=== PATIENT | male | born 1950 | race Caucasian/White ===

== ENCOUNTER 2016-09-19 12:47 | Observation (INO) | payer OTHER ==
[2016-09-19 13:43] LABS: ABSOLUTE LYMPHOCYTES (AUTO) 0.7 10^3/uL (0.5-4.7); ABSOLUTE MONOCYTES (AUTO) 0.5 10^3/uL (0.1-1.4); ABSOLUTE NEUT (AUTO) 8.3 10^3/uL (1.7-8.2); BASOPHILS % (AUTO) 0.2 % (0-2); EOSINOPHILS % (AUTO) 0.2 % (0-6); HEMOGLOBIN 19.4 g/dL (13.5-17.0); HGB HCT DIFFERENCE 0.2; LYMPHOCYTES % (AUTO) 7.4 % (13-45); MEAN CORPUSCULAR HEMOGLOBIN 30.7 pg (27.0-33.4); MEAN CORPUSCULAR HGB CONC 33.5 g/dL (32.0-36.0); MEAN CORPUSCULAR VOLUME 92 fl (80-97); MONOCYTES % (AUTO) 5.2 % (3-13); RED BLOOD COUNT 6.32 10^6/uL (4.35-5.55); RED CELL DISTRIBUTION WIDTH 16.2 % (11.5-14.0); WHITE BLOOD COUNT 9.5 10^3/uL (4.0-10.5)
[2016-09-19 13:50] LABS: ALANINE AMINOTRANSFERASE 59 U/L (21-72); ALBUMIN 4.6 g/dL (3.5-5.0); ALKALINE PHOSPHATASE 94 U/L (38-126); ANION GAP 13 (5-19); ASPARTATE AMINO TRANSFERASE 34 U/L (17-59); BILIRUBIN,DIRECT 0.4 mg/dL (0.0-0.4); BILIRUBIN,TOTAL 0.8 mg/dL (0.2-1.3); BLOOD UREA NITROGEN 13 mg/dL (7-20); CALCIUM 9.2 mg/dL (8.4-10.2); CARBON DIOXIDE 28 mmol/L (22-30); CHLORIDE 100 mmol/L (98-107); CREATINE KINASE 89 U/L (55-170); CREATININE RESULT 1.04 mg/dL (0.52-1.25); GLUCOSE 144 mg/dL (75-110); POTASSIUM 5.6 mmol/L (3.6-5.0); SODIUM 141.2 mmol/L (137-145); TOTAL PROTEIN 7.5 g/dL (6.3-8.2)
[2016-09-19 14:03] LABS: TROPONIN I < 0.012 ng/mL
[2016-09-19] MEDS ORDERED: METOCLOPRAMIDE HCL INJ/PF 10 MG/2 ML SDV IV ONE ×2 (14:20→18:55)
[2016-09-19] MEDS ORDERED: DIPHENHYDRAMINE HCL 50 MG/ML VIAL IV ONE ×2 (14:20→18:55)
[2016-09-19] MEDS ORDERED: NORMAL SALINE 500 ML IV PRN (14:25)
[2016-09-19 14:42] LABS: APPEARANCE,URINE CLEAR; BILIRUBIN,URINE NEGATIVE (NEGATIVE); GLUCOSE, URINE >=500 mg/dL (NEGATIVE); KETONES,URINE NEGATIVE (NEGATIVE); LEUKOCYTE ESTERASE,URINE NEGATIVE (NEGATIVE); NITRITE,URINE NEGATIVE (NEGATIVE); PROTEIN,URINE 30 mg/dL (NEGATIVE); UROBILINOGEN,URINE NEGATIVE mg/dL (<2.0)
--- NOTE | 2016-09-19 15:49 | RADIOLOGY REPORT (SQ) ---
EXAM DESCRIPTION: CT HEAD WITHOUT COMPLETED DATE/TIME: 09/19/2016 3:13 pm REASON FOR STUDY: acute vertigo COMPARISON: None. TECHNIQUE: Axial images acquired through the brain without intravenous contrast. Images reviewed wi th bone, brain and subdural windows. Images stored on PACS. All CT scanners at this facility use dose modulation, iterative reconstruction, and/or weight based d osing when appropriate to reduce radiation dose to as low as reasonably achievable (ALARA). [facility]: Dose Right [facility]: CareDose [facility]: Dose Right [facility]: Teradose 4D [facility]: Smart [employer] RADIATION DOSE: Up-to-date CT equipment and radiation dose reduction techniques were employed. CTDIv ol: 64.6 mGy. DLP: 1034 mGy-cm. mGy. LIMITATIONS: None. FINDINGS: VENTRICLES: Normal size and contour. CEREBRUM: No masses. No hemorrhage. No midline shift. Normal reynaga/white matter differentiation. N o evidence for acute infarction. CEREBELLUM: No masses. No hemorrhage. No alteration of density. No evidence for acute infarction. EXTRAAXIAL SPACES: No fluid collections. No masses. ORBITS AND GLOBE: No intra- or extraconal masses. Normal contour of globe without masses. CALVARIUM: No fracture. PARANASAL SINUSES: No fluid or mucosal thickening. SOFT TISSUES: No mass or hematoma. OTHER: No other significant finding. IMPRESSION: NORMAL BRAIN CT WITHOUT CONTRAST. TECHNICAL DOCUMENTATION: JOB ID: [id number] Quality ID # [id number]: Final reports with documentation of one or more dose reduction techniques (e.g., Au tomated exposure control, adjustment of the mA and/or kV according to patient size, use of iterative reconstruction technique) 2010 [employer]- All Rights Reserved
[2016-09-19] MEDS ORDERED: NORMAL SALINE 1000 ML 1,000 ML IV PRN (16:27)
--- NOTE | 2016-09-19 16:29 | ER Document Report ---
ED General - General Mode of Arrival: Medic Information source: Patient - HPI Onset: Just prior to arrival Onset/Duration: Sudden Quality of pain: No pain Severity: None Pain Level: Denies Associated symptoms: Nausea, Vomiting, Other - Acute dizziness. denies: Chest pain, Fever, Shortness of breath Exacerbated by: Denies Relieved by: Denies Similar symptoms previously: No Recently seen / treated by doctor: No <BRANDON ALVAREZ - Last Filed: 09/19/16 20:25> <ROD JULIO - Last Filed: 09/19/16 21:37> - General Chief Complaint: Dizziness Stated Complaint: NASUEA Time Seen by Provider: 09/19/16 13:39 Notes: 65-year-old man with a history of sick sinus syndrome (pacemaker since age 41), coronary artery disease (mild), diabetes, acute onset of vertigo at home. This is new in onset. Who presents to the emergency room patient was diaphoretic, nausea vomiting. Blood pressure in the field was 205/134. Medications: Bystoli 10 mg p.m. Lexapro 20 mg daily Jardinance 10 mg daily Lisinopril 20 mg Daily Aspirin 81 mg daily Zaleplon 10 mg at night Testosterone Q 10 days (BRANDON ALVAREZ) - Related Data Home Medications: Current Home Medications Aspirin [Ecotrin 81 mg EC Tablet] 81 mg PO DAILY 09/19/16 [History] Empagliflozin [Jardiance] 10 mg PO QHS 09/19/16 [History] Escitalopram Oxalate [Lexapro] 20 mg PO DAILY 09/19/16 [History] Lisinopril [Prinivil] 20 mg PO DAILY 09/19/16 [History] Nebivolol HCl [Bystolic 10 mg Tablet] 10 mg PO QHS 09/19/16 [History] Simvastatin [Zocor 20 mg Tablet] 20 mg PO QHS 09/19/16 [History] Zaleplon [Sonata] 10 mg PO QHS 09/19/16 [History] Past Medical History - General Information source: Patient - Social History Smoking Status: Former Smoker Cigarette use (# per day): No - Patient does vap Chew tobacco use (# tins/day): No Frequency of alcohol use: None Drug Abuse: None Lives with: Alone Family History: None Patient has suicidal ideation: No Patient has homicidal ideation: No - Past Medical History Cardiac Medical History: Reports: Hx Hypercholesterolemia, Hx Hypertension, Other - Sick sinus syndrome with pacemaker Pulmonary Medical History: Reports: None EENT Medical History: Reports: None Neurological Medical History: Reports: None Endocrine Medical History: Reports: Hx Diabetes Mellitus Type 2 Renal/ Medical History: Reports: None Malignancy Medical History: Reports None GI Medical History: Reports: None Musculoskeltal Medical History: Reports None Skin Medical History: Reports None Psychiatric Medical History: Reports: None Past Surgical History: Reports: Hx Pacemaker <BRANDON ALVAREZ - Last Filed: 09/19/16 20:25> Review of Systems - Review of Systems Constitutional: denies: Chills, Fever EENT: No symptoms reported Cardiovascular: No symptoms reported Respiratory: No symptoms reported Gastrointestinal: No symptoms reported Genitourinary: No symptoms reported Male Genitourinary: No symptoms reported Musculoskeletal: No symptoms reported Skin: No symptoms reported Hematologic/Lymphatic: No symptoms reported Neurological/Psychological: See HPI, Other - Vertigo <BRANDON ALVAREZ - Last Filed: 09/19/16 20:25> Physical Exam <BRANDON ALVAREZ - Last Filed: 09/19/16 20:25> <ROD JULIO Boo - Last Filed: 09/19/16 21:37> - Vital signs Vitals: Resp Pulse Ox 16 92 09/19/16 13:17 09/19/16 13:17 Notes: Physical exam: GENERAL: 65-year-old man, alert and oriented 3, no acute distress HEAD: Atraumatic, normocephalic. EYES: Pupils equal round and reactive to light, extraocular movements intact, sclera anicteric, conjunctiva are normal. ENT: TMs normal, nares patent, oropharynx clear without exudates. Moist mucous membranes. NECK: Normal range of motion, supple without lymphadenopathy or JVD. LUNGS: Breath sounds clear to auscultation bilaterally and equal. No wheezes rales or rhonchi. HEART: Regular rate and rhythm without murmurs, rubs or gallops. ABDOMEN: Soft, normoactive bowel sounds. No tenderness to palpation. No guarding, no rebound. No masses appreciated. EXTREMITIES: Normal range of motion, no pitting or edema. No clubbing or cyanosis. NEUROLOGICAL: The patient does have a current acute vertigo, Cranial nerves II through XII grossly intact. Normal speech, motor is 5/5, sensory grossly intact , reflexes symmetric. Patient's NIH score is essentially 0. PSYCH: Normal mood, normal affect. SKIN: Warm, Dry, normal turgor, no rashes or lesions noted. (BRANDON ALVAREZ) Course - Laboratory Result Diagrams: 09/19/16 13:10 09/19/16 13:10 - Diagnostic Test Radiology reviewed: Image reviewed, Reports reviewed - PA of the head and neck shows a left cerebral infarct in the left vertebral artery dissection. - EKG Interpretation by Me Rate: Normal - EKG shows a atrial paced rhythm with a ventricular rate of 70, left axis deviation, poor R-wave progression, no acute ST-T wave changes <BRANDON ALVAREZ - Last Filed: 09/19/16 20:25> - Laboratory Result Diagrams: 09/19/16 13:10 09/19/16 13:10 <ROD JULIO - Last Filed: 09/19/16 21:37> - Re-evaluation Re-evalutation: 09/19/16 16:33 Note: This is a fellow with sick sinus syndrome and a pacemaker who has underlying hypertension who presents to the emergency room with acute vertigo. He was markedly hypertensive in the field and his labs are suggestive of polycythemia. The concern is that he may have had a small CVA. He was treated with IV fluids, Reglan and Benadryl. CT of the head shows no evidence of stroke. We are unable to do an MRI because of his pacemaker. Plan will be to admit the patient for further monitoring and workup. Patient does not meet criteria for thrombolytics at this time. Given his risk factors for stroke, he will bruit brought into the hospital. R009/19/16 17:58 Note: Patient's blood pressure currently is 161/91. He still feels much better. I discussed the CTA reports with Dr. Partida of radiology: The patient does have evidence of a left cerebellar infarct on CTA of the head and he also has significant narrowing of the left vertebral artery with possible proximal vertebral artery dissection on CTA of the neck. 09/19/16 20:25 Note: I discussed case with the [facility] (Dr Araiza) and Dr Manzo(medicine service) the problem and they are willing to accept the patient in transfer. Is that there are currently no beds available and the expected time of the bed availability is long. I have called [facility] in [place] and they have no beds available. I have discussed the case with Dr Rdz (Neurology at [facility]) and Dr Gonzalez ([facility] ) and they are willing to accept transfer ER to ER for evaluation. Dr. Rdz has a recommended aspirin only at this point. The patient was given aspirin. The plan for the blood pressure is due except systolic blood pressures up to the 180 range. Ptradha received his night-time Bystolic (10mg) at 20:30 09/19/16 20:44 (BRANDON ALVAREZ) 09/19/16 21:36 Air crew in ED. Patient reevaluated and stable for transport. ( ROD JULIO) - Vital Signs Vital signs: Temp Pulse Resp BP Pulse Ox 70 17 153/89 H 93 09/19/16 16:40 09/19/16 21:01 09/19/16 21:01 09/19/16 21:01 - Laboratory Laboratory results interpreted by me: 09/19/16 09/19/16 09/19/16 13:10 13:10 14:10 RBC 6.32 H Hgb 19.4 H Hct 58.0 H RDW 16.2 H Seg Neutrophils % 87.0 H Lymphocytes % 7.4 L Absolute Neutrophils 8.3 H Potassium 5.6 H Glucose 144 H Urine Protein 30 H Urine Glucose (UA) >=500 H Urine Blood SMALL H Critical Care Note - Critical Care Note Total time excluding time spent on procedures (mins): 90 <BRANDON ALVAREZ - Last Filed: 09/19/16 20:25> Discharge <BRANDON ALVAREZ - Last Filed: 09/19/16 20:25> <ROD JULIO - Last Filed: 09/19/16 21:37> - Discharge Clinical Impression: Acute vertigo, Left infarction cerebellar, Left proximal vertebral artery dissectio Condition: Stable Disposition: [facility]
--- NOTE | 2016-09-19 16:49 | RADIOLOGY REPORT (SQ) ---
EXAM DESCRIPTION: CHEST SINGLE VIEW COMPLETED DATE/TIME: 09/19/2016 4:39 pm REASON FOR STUDY: vertigo COMPARISON: None. EXAM PARAMETERS: NUMBER OF VIEWS: One view. TECHNIQUE: Single frontal radiographic view of the chest acquired. RADIATION DOSE: NA LIMITATIONS: None. FINDINGS: LUNGS AND PLEURA: Subsegmental atelectasis is present in both lung bases. Mild interstiti al changes are present. MEDIASTINUM AND HILAR STRUCTURES: No masses. Contour normal. HEART AND VASCULAR STRUCTURES: Cardiomegaly. No evidence of failure. BONES: No acute findings. HARDWARE: Pacemaker. OTHER: No other significant finding. IMPRESSION: Cardiomegaly without CHF. Mild chronic interstitial changes. TECHNICAL DOCUMENTATION: JOB ID: [id number]
--- NOTE | 2016-09-19 17:44 | RADIOLOGY REPORT (SQ) ---
EXAM DESCRIPTION: CTA HEAD COMPLETED DATE/TIME: 09/19/2016 5:21 pm REASON FOR STUDY: acute vertigo COMPARISON: None. TECHNIQUE: Post IV contrast scanning, thin section axial imaging through the brain to evaluate the a rterial structures. Source and MIP images are saved and reviewed on PACS. Advanced 3D imaging as volume-rendering, MIPs, SSD performed? yes All CT scanners at this facility use dose modulation, iterative reconstruction, and/or weight based d osing when appropriate to reduce radiation dose to as low as reasonably achievable (ALARA). [facility]: Dose Right [facility]: CareDose [facility]: Dose Right [facility]: Teradose 4D [facility]: [employer] CONTRAST TYPE AND DOSE: contrast/concentration: Isovue 370.00 mg/ml; Total Contrast Delivered: 85.0 ml; Total Saline Delivered: 70.0 ml RENAL FUNCTION: Creatinine 1.0 LIMITATIONS: None. FINDINGS: [place]: The anterior, middle, posterior cerebral arteries are all patent. No ev idence of aneurysm or focal stenosis. POSTERIOR CIRCULATION: The distal vertebral arteries are patent as is the basilar artery. No aneurysm . BRAIN: There is decreased contrast enhancement in the left inferior cerebellar hemisphere worrisome f or infarct, best shown on axial images 109-113. Remainder of the brain parenchyma on the post contra sted images is otherwise unremarkable. BONES: Intact as visualized. SINUSES: Mucus or serous retention cyst floor left maxillary sinus. OTHER: No other significant finding. IMPRESSION: NO CTA EVIDENCE OF STENOSIS OR ANEURYSM OF THE [place]. HOWEVER, THERE IS AN ACUTE INFARCT IN THE LEFT CEREBELLAR HEMISPHERE, AND THE ACCOMPANYING CT ANGIO N HOME DEMONSTRATES A DEFECT IN THE PROXIMAL LEFT VERTEBRAL ARTERY FROM C5 THROUGH C7 WORRISOME FOR [facility] ER EMBOLUS OR DISSECTION. TECHNICAL DOCUMENTATION: JOB ID: [id number] Quality ID # [id number]: Final reports with documentation of one or more dose reduction techniques (e.g., Au tomated exposure control, adjustment of the mA and/or kV according to patient size, use of iterative reconstruction technique) 2010 [employer]- All Rights Reserved
--- NOTE | 2016-09-19 17:48 | RADIOLOGY REPORT (SQ) ---
EXAM DESCRIPTION: CTA NECK COMPLETED DATE/TIME: 09/19/2016 5:21 pm REASON FOR STUDY: acute vertigo COMPARISON: CT ANGIO [place] OF [place] 09/19/[address] BRAIN 09/19/2016 TECHNIQUE: Axial dynamic scanning technique with dynamic contrast enhancement through the extra-vessel scrapper helper nial carotid and vertebral arteries. Multiplanar reconstruction. 3-D MIPS and Volume-rendered imag es acquired at the workstation and saved to PACS. Images are reviewed in soft tissue, bone, lung w indows. All CT scanners at this facility use dose modulation, iterative reconstruction, and/or weight based d osing when appropriate to reduce radiation dose to as low as reasonably achievable (ALARA). [facility]: Dose Right [facility]: CareDose [facility]: Dose Right [facility]: Teradose 4D [facility]: [employer] CONTRAST TYPE AND DOSE: 85 mL of Isovue 370 RENAL FUNCTION: Creatinine 1.04 LIMITATIONS: None. FINDINGS: AORTIC ARCH: Normal three-vessel origin. Bilateral subclavian arteries are patent. No ao rtic arch or proximal great vessel dissection. RIGHT CAROTIDS: Patent common, internal and external carotid arteries without suggestion of significa nt stenosis or irregular plaque. No dissection. RIGHT VERTEBRAL: Patent. No dissection. LEFT CAROTIDS: Patent common, internal and external carotid arteries without suggestion of significan t stenosis or irregular plaque. No dissection. LEFT VERTEBRAL: High-grade narrowing of the left vertebral artery is seen from C5 through C7. The pr oximal left vertebral artery near the origin is not opacified with contrast. These findings are best demonstrated on axial images 44 through 72. OTHER: [place] was discussed with Dr. Samayoa OTHER: 3-D reconstructions confirm findings. IMPRESSION: Abnormal proximal left vertebral artery, at the level of C5, C6, and C7 there is high-gr janna luminal narrowing either from embolus or dissection. This report was called to the emergency dane m attending physician COMMENT: Quality ID #[id number]: Measurements of distal internal carotid diameter were used as the denomina tor for stenosis measurement. TECHNICAL DOCUMENTATION: JOB ID: [id number] Quality ID # 436: Final reports with documentation of one or more dose reduction techniques (e.g., Au tomated exposure control, adjustment of the mA and/or kV according to patient size, use of iterative reconstruction technique) 2010 [employer]- All Rights Reserved
--- NOTE | 2016-09-19 18:22 | HISTORY AND PHYSICAL E ---
CONSULTATION REPORT NAME: OG BRAND : 1950 AGE: 65Y ADMITTED: 09/19/2016 ROOM: ED07 PRIMARY CARE PROVIDER: Located in [place], [place]. CHIEF COMPLAINT: Vertigo. HISTORY OF PRESENT ILLNESS: The patient is a 65-year-old male with a past medical history of sick sinus syndrome and hypertension. The patient presented to the emergency department with the chief complaint of nausea, dizziness, and a headache. The patient stated that for the past 2 days he had not been feeling well at home. The patient stated his blood pressure yesterday was systolically in the 180s which was unusual for him; however, he took his medications as prescribed, and his blood pressure continued to rise. Today EMS noted the blood pressure to be 205/134, and the patient was brought into the emergency department for management. The patient states that his blood pressures to be this high are unusual for him. While in the emergency department he was noted to be diaphoretic, nauseous with vomiting, and the initial head CT was found to be unremarkable. However, the patient was bolused with fluids, given Reglan, Benadryl. His symptoms have improved but yet do persist. Given the pacemaker, the patient was not eligible for MRI. Recommendations have been made for the patient to have a CTA of the head and neck, and this workup is ongoing. However, the patient has been referred to the hospitalist for observation and management. PAST MEDICAL HISTORY: Remarkable for: 1. Hypertension. 2. Sick sinus syndrome with pacemaker placement. 3. Diabetes mellitus type 2. 4. Coronary artery disease. The patient states that he is quite compliant with his medications and with his doctors' visits. The patient stated that he last saw his senior research project manager a year ago when he had a stress test and echocardiogram, which he was "pleased with." The patient has had no significant medication changes since that time. PAST SURGICAL HISTORY: Remarkable for: 1. Pacemaker placement, last changed 2 years ago. This was last interrogated in May. 2. Cholecystectomy. ALLERGIES: No known drug allergies. MEDICATIONS: Include: 1. Lexapro 20 mg daily. 2. Jardiance 10 mg every morning. 3. Bystolic 10 mg daily. 4. Simvastatin 20 mg p.o. daily. 5. Testosterone q.10 days. 6. Zaleplon 10 mg at hour of sleep. SOCIAL HISTORY: The patient currently resides at home alone. His surrogate decision maker would be his sister, Ellyn Pompa, who may be reached at . The patient is a retired contractor. The patient does have a 50-year tobacco history. For the past 4 years, he has been vaping. The patient has a 50-year pack history. The patient denies any excessive alcohol, states he drinks about once a week socially. Denies any history of DTs. The patient denies any history of illicit drug use. FAMILY MEDICAL HISTORY: Positive for coronary artery disease in parents. The patient's sister is healthy. The patient does not have children. REVIEW OF SYSTEMS: CONSTITUTIONAL: The patient denies any loss of appetite but admits to hot flashes, dizziness, weakness. INTEGUMENTARY: The patient denies any rashes, bruising, or itching. Positive for diuresis. HEENT: Denies any vision change, hearing loss. No nasal drainage, sore throat, or headaches. CARDIOVASCULAR: The patient denies any shortness of breath, chest pain, edema, or heart palpitations. RESPIRATORY: Denies cough, sputum production, or hemoptysis. GASTROINTESTINAL: Denies any nausea, vomiting, diarrhea, abdominal pain, bloating, hematemesis. No melena or hematochezia. GENITOURINARY: Denies any hematuria, pyuria, or dysuria. MUSCULOSKELETAL: Denies any acute joint pains. NEUROLOGICAL: No seizures, tremors, or loss of consciousness. HEMATOLOGICAL: The patient denies any butch bleeding or any easy bruising. ENDOCRINE: Denies any recent weight changes. PSYCHIATRIC: Denies suicidal or homicidal ideation. The rest of the review of the other organ systems is negative. PHYSICAL EXAMINATION: GENERAL: On examination the patient is a well-developed, well-nourished, 65-year-old male who is awake, alert and oriented to person, place, time, and situation. He is verbal, conversational, does not appear to be in any acute distress. VITAL SIGNS: As follows: SKIN: Cool and clammy. He is diaphoretic. There is no rash or bruising. HEENT: Pupils equal, round, reactive to light and accommodation. Conjunctiva is pink. Sclera is not icteric. There are no mouth lesions. Tongue is midline. No nystagmus noted on exam. NECK: No JVP. Neck is supple. No palpable lymphadenopathy or thyromegaly. CARDIOVASCULAR SYSTEM: Heart is regular. There is no murmur or rub. Pacemaker in place. CHEST: Clear, symmetrical, unlabored. ABDOMEN: Soft, nontender, nondistended. Bowel sounds are present. No palpable organomegaly. BACK: No CVA tenderness or sacral edema. EXTREMITIES: No clubbing, cyanosis, edema, or peripheral signs of embolization; +2 pedal pulses noted bilaterally. PSYCHIATRIC: Appropriate affect. Pleasant mood. DIAGNOSTICS: Lab values are as follows: Hematology obtained on 09/19/2016; WBCs are 9.5, hemoglobin is 19.4, hematocrit is 58.0, platelet count is 176,000. Chemistry obtained on 09/19/2016: Sodium is 141, potassium 5.6, chloride is 100, carbon dioxide 28, BUN 13, creatinine is 1.10, glucose 144, calcium is 9.2, magnesium is 2.1, bilirubin is 0.8, AST 34, ALT is 59, alkaline phosphatase 94, CK 89, CK-MB is 2.30, troponin is 0.012, troponin 7.5, albumin 4.6. Urine obtained on 09/19/2016: Color yellow, appearance clear, pH of 6.0, specific gravity is 1.030, protein 30, glucose 500, ketones negative, occult blood small, nitrite negative, bilirubin negative, urobilinogen is negative, leukocyte esterase is negative, WBCs 2, RBCs 1, ascorbic acid is negative. Head CT obtained on 09/19/2016 reveals a normal brain without CT contrast. Chest x-ray obtained on 09/19/2016 reveals cardiomegaly without CHF, mild chronic interstitial changes. IMPRESSION AND PLAN: 1. Acute vertigo: We will obtain acute CTA of the neck and follow. I will treat the patient by symptoms including nausea. Will also add meclizine. Follow. 2. Hypertensive emergency. The patient's blood pressures have improved since presentation. Will review the patient's home medications once reconciled. Will add IV p.r.n. coverage and follow. 3. Diabetes mellitus type 2. Will start the patient on sliding scale coverage and follow. 4. Hyperkalemia. This is mild. This should improve with just hydration. 5. Polycythemia. Even his skin does feel dry. I do believe the patient does have an element of dehydration. Will hydrate and follow. 6. DVT prophylaxis. Will add subcutaneous heparin. DISPOSITION: The patient is a FULL CODE. Pending patient's symptomatology and diagnostic findings, will re-evaluate in the a.m. Will observe the patient in continuous IMCU as the patient's expected length of stay should not surpass 2 midnights. Time spent on this admission including assessment, plan, physical examination, patient education, and family meeting is 40 minutes. ADDENDUM: The patient's CTA was suggestive of a vertebral artery dissection with infarction. The case was discussed with tertiary care per ED provider. The patient has been accepted for transfer. DICTATING PHYSICIAN: TAMMY DOBSON NP [id number] PHY#: [id number] ID: [id number] JOB#: [id number] ACCT: [id number] cc:TAMMY DOBSON NP > MTDD
[2016-09-19 18:34] LABS: PROTHROMBIN TIME 13.3 SEC (11.4-15.4)
[2016-09-19 18:35] LABS: PARTIAL THROMBOPLASTIN TIME 30.3 SEC (23.5-35.8)
[2016-09-19] MEDS ORDERED: ASPIRIN 81 MG TABLET, CHEWABLE PO ONE (18:42)
--- NOTE | 2016-09-19 19:21 | EKG REPORT ---
SEVERITY:- ABNORMAL ECG - ATRIAL-PACED RHYTHM NONSPECIFIC IVCD WITH LAD INFERIOR INFARCT, AGE INDETERMINATE : Confirmed by: Shukri Rebolledo MD 19-Sep-2016 19:20:18
[2016-09-19 21:08] VITALS: BP 153/89
[2016-09-19] MEDS ORDERED: HEPARIN SOD (PORCINE) 5,000 UNIT/ML 1 ML SYRINGE SUBCUT SCH (22:00)
== END 2016-09-19 21:37 | disposition short-term general hospital (02) ==
LOC: ER 12:47 → EH 16:27
PROVIDERS: ADMIT Family Medicine; ATTEND Family Medicine
DX: I63.9 Cerebral infarction, unspecified (principal); I77.74 Dissection of vertebral artery; R42 Dizziness and giddiness; I16.1 Hypertensive emergency; E11.9 Type 2 diabetes mellitus without complications; E87.5 Hyperkalemia; D75.1 Secondary polycythemia; I49.5 Sick sinus syndrome; Z95.0 Presence of cardiac pacemaker; I25.10 Atherosclerotic heart disease of native coronary artery without angina pectoris; Z79.899 Other long term (current) drug therapy; Z79.82 Long term (current) use of aspirin; Z87.891 Personal history of nicotine dependence
CPT/HCPCS: 93005; 96376; 99291; 99292; 96361; 96374; 96375; 36415; 82553; 82550; 83735; 85025; 85610; 85730; 80053; 81001; 84484; 71010; 70450; 70496; 70498; 93010; J1200; J2765; J7030; J7040

== ENCOUNTER 2016-10-01 10:43 | Observation (INO) | payer OTHER ==
[2016-10-01 11:20] LABS: ABSOLUTE LYMPHOCYTES (AUTO) 0.7 10^3/uL (0.5-4.7); ABSOLUTE MONOCYTES (AUTO) 0.6 10^3/uL (0.1-1.4); ABSOLUTE NEUT (AUTO) 6.5 10^3/uL (1.7-8.2); BASOPHILS % (AUTO) 0.3 % (0-2); EOSINOPHILS % (AUTO) 0.4 % (0-6); HEMATOCRIT 57.1 % (37.9-51.0); HEMOGLOBIN 19.2 g/dL (13.5-17.0); HGB HCT DIFFERENCE 0.5; MEAN CORPUSCULAR HEMOGLOBIN 30.7 pg (27.0-33.4); MEAN CORPUSCULAR HGB CONC 33.6 g/dL (32.0-36.0); MEAN CORPUSCULAR VOLUME 92 fl (80-97); RED BLOOD COUNT 6.24 10^6/uL (4.35-5.55); RED CELL DISTRIBUTION WIDTH 16.1 % (11.5-14.0); SEGMENTED NEUTROPHILS % (AUTO) 83.3 % (42-78); WHITE BLOOD COUNT 7.8 10^3/uL (4.0-10.5)
[2016-10-01] MEDS ORDERED: NORMAL SALINE 1000 ML 1,000 ML IV PRN (11:20)
[2016-10-01 11:25] LABS: PROTHROMBIN TIME 13.6 SEC (11.4-15.4)
[2016-10-01 11:26] LABS: PARTIAL THROMBOPLASTIN TIME 31.5 SEC (23.5-35.8)
[2016-10-01 11:35] LABS: ALANINE AMINOTRANSFERASE 46 U/L (21-72); ALBUMIN 4.8 g/dL (3.5-5.0); ALKALINE PHOSPHATASE 101 U/L (38-126); ANION GAP 13 (5-19); ASPARTATE AMINO TRANSFERASE 26 U/L (17-59); BILIRUBIN,DIRECT 0.3 mg/dL (0.0-0.4); BILIRUBIN,TOTAL 1.2 mg/dL (0.2-1.3); BLOOD UREA NITROGEN 15 mg/dL (7-20); CALCIUM 9.8 mg/dL (8.4-10.2); CARBON DIOXIDE 26 mmol/L (22-30); CHLORIDE 101 mmol/L (98-107); CREATINE KINASE 125 U/L (55-170); CREATININE RESULT 0.99 mg/dL (0.52-1.25); GLUCOSE 149 mg/dL (75-110); POTASSIUM 4.4 mmol/L (3.6-5.0); SODIUM 139.6 mmol/L (137-145); TOTAL PROTEIN 7.6 g/dL (6.3-8.2)
[2016-10-01 12:11] LABS: TROPONIN I < 0.012 ng/mL
--- NOTE | 2016-10-01 12:14 | RADIOLOGY REPORT (SQ) ---
EXAM DESCRIPTION: CT HEAD WITHOUT COMPLETED DATE/TIME: 10/01/2016 11:54 am REASON FOR STUDY: right sided weakness COMPARISON: CT angio head 09/19/2016 CT brain 09/19/2016 TECHNIQUE: Axial images acquired through the brain without intravenous contrast. Images reviewed wi th bone, brain and subdural windows. Images stored on PACS. All CT scanners at this facility use dose modulation, iterative reconstruction, and/or weight based d osing when appropriate to reduce radiation dose to as low as reasonably achievable (ALARA). [facility]: Dose Right [facility]: CareDose [facility]: Dose Right [facility]: Teradose 4D [facility]: Smart Deehubs RADIATION DOSE: Up-to-date CT equipment and radiation dose reduction techniques were employed. CTDIv ol: 64.6 mGy. DLP: 1163 mGy-cm. mGy. LIMITATIONS: None. FINDINGS: VENTRICLES: Normal size and contour. CEREBRUM: No masses. No hemorrhage. No midline shift. Minimal spotty bifrontal and biparietal conv exity white matter disease. No CT evidence of large territory acute ischemic change. No evidence fo r acute infarction. CEREBELLUM: No masses. No hemorrhage. No alteration of density. No evidence for acute infarction. EXTRAAXIAL SPACES: No fluid collections. No masses. ORBITS AND GLOBE: No intra- or extraconal masses. Normal contour of globe without masses. CALVARIUM: No fracture. PARANASAL SINUSES: No fluid or mucosal thickening. SOFT TISSUES: No mass or hematoma. OTHER: Findings discussed with Dr. Tyson IMPRESSION: No acute findings TECHNICAL DOCUMENTATION: JOB ID: [id number] Quality ID # [id number]: Final reports with documentation of one or more dose reduction techniques (e.g., Au tomated exposure control, adjustment of the mA and/or kV according to patient size, use of iterative reconstruction technique) 2010 [employer]- All Rights Reserved
--- NOTE | 2016-10-01 12:18 | RADIOLOGY REPORT (SQ) ---
EXAM DESCRIPTION: CHEST SINGLE VIEW COMPLETED DATE/TIME: 10/01/2016 12:07 pm REASON FOR STUDY: right sided weakness COMPARISON: 09/19/2016 EXAM PARAMETERS: NUMBER OF VIEWS: One view. TECHNIQUE: Single frontal radiographic view of the chest acquired. RADIATION DOSE: NA LIMITATIONS: None. FINDINGS: LUNGS AND PLEURA: There are mild chronic interstitial changes. There is subsegmental atel ectasis in the right lung base. No acute infiltrate is present. MEDIASTINUM AND HILAR STRUCTURES: No masses. Contour normal. HEART AND VASCULAR STRUCTURES: Heart size is borderline. BONES: No acute findings. HARDWARE: Pacemaker. OTHER: No other significant finding. IMPRESSION: Borderline cardiomegaly with chronic lung changes and no acute pulmonary disease. TECHNICAL DOCUMENTATION: JOB ID: [id number]
--- NOTE | 2016-10-01 13:30 | ER Document Report ---
ED Blood Sugar Problem - General Chief Complaint: Low Blood Sugar Stated Complaint: BLOOD SUGAR PROBLEMS Time Seen by Provider: 10/01/16 10:54 Mode of Arrival: Stretcher Information source: Patient TRAVEL OUTSIDE OF THE [place] IN LAST 30 DAYS: No - HPI Patient complains to provider of: Low Blood sugar, syncopal episode, left-sided weakness Onset: This morning Quality of pain: Achy Severity: Moderate Pain Level: 3 Associated symptoms: Weakness Similar symptoms previously: No Recently seen / treated by doctor: Yes Notes: Patient is a 65-year-old male presenting to the emergency room today after an episode of low blood sugar causing him to pass out, since then he reports having some left-sided weakness associated with a headache, he reported to his family member that he felt himself getting lightheaded and dizzy and therefore lowered himself to the floor, therefore he did not sustain any injury from passing out, when EMS arrived his blood sugar was noted to be 20, he does report a headache which is diffuse in nature, denies any chest pain or shortness of breath, was recently transferred from this facility to a tertiary care center for possible CVA, CT reading showed a possible vertebral artery dissection, however patient reports he did not receive any specific treatment at tertiary care center, he was started on Plavix - Related Data Allergies/Adverse Reactions: codeine Allergy (Verified 10/01/16 16:37) tuberculin,PPD,multi-puncture Allergy (Verified 10/01/16 16:37) Home Medications: Current Home Medications Atorvastatin Calcium [Lipitor 80 mg Tablet] 80 mg PO QHS 10/01/16 [History] Buspirone HCl [Buspar 15 mg Tablet] 7.5 mg PO BID 10/01/16 [History] Testosterone Cypionate [Depo-Testosterone] 200 mg IM .EVERY 10 DAYS 10/01/16 [ History] Past Medical History - General Information source: Patient - Social History Smoking Status: Unknown if Ever Smoked Family History: None - Past Medical History Cardiac Medical History: Reports: Hx Hypercholesterolemia, Hx Hypertension Endocrine Medical History: Reports: Hx Diabetes Mellitus Type 2 Past Surgical History: Reports: Hx Pacemaker Review of Systems - Review of Systems Constitutional: No symptoms reported EENT: No symptoms reported Cardiovascular: Syncope Respiratory: No symptoms reported Gastrointestinal: No symptoms reported Genitourinary: No symptoms reported Male Genitourinary: No symptoms reported Musculoskeletal: No symptoms reported Skin: No symptoms reported Hematologic/Lymphatic: No symptoms reported Neurological/Psychological: See HPI -: Yes All other systems reviewed and negative Physical Exam - Vital signs Vitals: Pulse Resp BP Pulse Ox 70 16 166/98 H 96 10/01/16 10:44 10/01/16 10:44 10/01/16 10:44 10/01/16 10:44 Interpretation: Normal - General General appearance: Appears well, Alert - HEENT Head: Normocephalic, Atraumatic Eyes: Normal Pupils: PERRL - Respiratory Respiratory status: No respiratory distress Chest status: Nontender, Other - Pacemaker palpated in left anterior chest wall Breath sounds: Normal Chest palpation: Normal - Cardiovascular Rhythm: Regular Heart sounds: Normal auscultation Murmur: No - Abdominal Inspection: Normal Distension: No distension Bowel sounds: Normal Tenderness: Nontender Organomegaly: No organomegaly - Back Back: Normal, Nontender - Extremities General upper extremity: Normal inspection, Nontender, Normal color, Normal ROM , Normal temperature General lower extremity: Normal inspection, Nontender, Normal color, Normal ROM , Normal temperature, Normal weight bearing. No: Flo's sign - Neurological Neuro grossly intact: Yes Cognition: Normal Orientation: AAOx4 Cecelia Coma Scale Eye Opening: Spontaneous Cord Coma Scale Verbal: Oriented Cecelia Coma Scale Motor: Obeys Commands Cecelia Coma Scale Total: 15 Speech: Normal Motor strength normal: LUE - 4 out of 5 strength, RUE, RLE. No: LLE - 3 out of 5 strength Sensory: Normal - Psychological Associated symptoms: Normal affect, Normal mood - Skin Skin Temperature: Warm Skin Moisture: Dry Skin Color: Normal Course - Re-evaluation Re-evalutation: 10/01/16 19:17 Patient with syncopal episode related to low blood sugar, new onset left-sided weakness, although it is unclear exactly when this started, patient reports that started sometime today, he was recently transferred to tertiary care center for CVA, started on Plavix, patient was discussed with the hospitalist service who agrees to admit for further evaluation and treatment, requested that an MRI of the brain be ordered, however nursing staff reports that patient is in eligible for this testing due to his pacemaker - Vital Signs Vital signs: Temp Pulse Resp BP Pulse Ox 97.7 F 70 18 145/76 H 96 10/01/16 17:24 10/01/16 17:24 10/01/16 17:24 10/01/16 17:24 10/01/16 17:24 - Laboratory Result Diagrams: 10/01/16 11:10 10/01/16 11:10 Laboratory results interpreted by me: 10/01/16 10/01/16 10/01/16 10:59 11:10 11:10 RBC 6.24 H Hgb 19.2 H Hct 57.1 H RDW 16.1 H Seg Neutrophils % 83.3 H Lymphocytes % 9.0 L Glucose 149 H POC Glucose 143 H 10/01/16 14:17 RBC Hgb Hct RDW Seg Neutrophils % Lymphocytes % Glucose POC Glucose 136 H - Diagnostic Test Radiology reviewed: Image reviewed, Reports reviewed - EKG Interpretation by Me Rate: Normal When compared to previous EKG there are: No significant change Additional EKG results interpreted by me: 10/01/16 19:19 Atrial paced rhythm Discharge - Discharge Clinical Impression: Acute CVA (cerebrovascular accident), Hypoglycemia Condition: Fair Disposition: ADMITTED OBSERVATION Admitting Provider: Hospitalist Unit Admitted: IMCU
--- NOTE | 2016-10-01 14:12 | EKG REPORT ---
SEVERITY:- ABNORMAL ECG - ATRIAL PACED RHYTHM NONSPECIFIC IVCD WITH LAD PROBABLE INFERIOR INFARCT, AGE INDETERMINATE : Confirmed by: Shukri Rebolledo MD 01-Oct-2016 14:11:41
[2016-10-01] MEDS ORDERED: ONDANSETRON HCL INJ/PF 4 MG/2 ML SDV IV ONE (14:20)
[2016-10-01] MEDS ORDERED: KETOROLAC TROMETHAMINE INJ/PF 30 MG/1 ML SDV IV ONE (14:20)
[2016-10-01] MEDS ORDERED: ONDANSETRON HCL INJ/PF 4 MG/2 ML SDV IV PRN (15:41)
[2016-10-01] MEDS ORDERED: ACETAMINOPHEN 325 MG TABLET PO PRN (15:41)
[2016-10-01] MEDS ORDERED: DEXTROSE 40% GEL 15 GM TUBE PO PRN ×2 (16:56)
[2016-10-01] MEDS ORDERED: DEXTROSE 50%-WATER 25 GM/50 ML DISP.SYRIN IV PRN ×2 (16:56)
[2016-10-01] MEDS ORDERED: GLUCAGON,HUMAN RECOMB 1 MG INJ IM PRN (16:56)
[2016-10-01] MEDS ORDERED: INSULIN LISPRO 100 UNIT/ML 3 ML VIAL SUBCUT PRN (16:56)
[2016-10-01] MEDS ORDERED: (PENDING PHARMACY ID) (Buspirone Hcl [Buspar 15 Mg Tablet] 7.5 MG) PO SCH (18:00)
[2016-10-01] MEDS ORDERED: (PENDING PHARMACY ID) (Empagliflozin [Jardiance] 10 MG) PO SCH (22:00)
[2016-10-01] MEDS ORDERED: ATORVASTATIN CALCIUM 80 MG TABLET PO SCH (22:00)
[2016-10-01] MEDS ORDERED: (PENDING PHARMACY ID) (Zaleplon [Sonata] 10 MG) PO SCH (22:00)
[2016-10-01] MEDS: FAMOTIDINE 20 MG TABLET PO SCH (22:03)
[2016-10-01] MEDS: NEBIVOLOL HCL 10 MG TABLET PO SCH (22:03)
[2016-10-01] MEDS: HEPARIN SOD (PORCINE) 5,000 UNIT/ML 1 ML SYRINGE SUBCUT SCH (22:10)
[2016-10-01] MEDS: ATORVASTATIN CALCIUM 40 MG TABLET PO SCH (22:11)
[2016-10-01 23:23] LABS: HEMATOCRIT 53.1 % (37.9-51.0); HEMOGLOBIN 17.6 g/dL (13.5-17.0); HGB HCT DIFFERENCE -0.3; MEAN CORPUSCULAR HEMOGLOBIN 30.6 pg (27.0-33.4); MEAN CORPUSCULAR HGB CONC 33.1 g/dL (32.0-36.0); MEAN CORPUSCULAR VOLUME 93 fl (80-97); RED BLOOD COUNT 5.74 10^6/uL (4.35-5.55); RED CELL DISTRIBUTION WIDTH 15.9 % (11.5-14.0); WHITE BLOOD COUNT 7.1 10^3/uL (4.0-10.5)
[2016-10-01] MEDS: NORMAL SALINE 1000 ML 1,000 ML IV SCH (23:40)
--- NOTE | 2016-10-02 00:01 | Progress Note ---
Provider Note Provider Note: MD contacted by patient's nurse for patient's symptoms of vertigo nausea and headache with persistent left-sided weakness. Patient recently discharged from [facility] with an acute ischemic stroke discharged on aspirin and Plavix. 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 Neurology suggest IV fluid hydration and phlebotomy of 250 mL. Given the patient's stuttering symptoms. Patient has had no further hypoglycemia. Blood pressure at goal 180 systolic, sinus rhythm , afebrile satting 96% on room air. 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 Patient understands the diagnosis and agrees to treatment. Consulted with surgicalist for phlebotomy and is in route to the bedside.
[2016-10-02] MEDS ORDERED: LIDOCAINE 1% INJ-PF (10 MG/ML) 30 ML SDV ONE (00:34)
--- NOTE | 2016-10-02 01:22 | OPERATIVE REPORT E ---
Operative Report NAME: OG BRAND : 1950 AGE: 65Y DATE OF SURGERY: 10/02/2016 ROOM: 307 PREOPERATIVE DIAGNOSES: 1. EVALUATED HEMATOCRIT TO 57. 2. HISTORY OF CVA. POSTOPERATIVE DIAGNOSES: 1. EVALUATED HEMATOCRIT TO 57. 2. HISTORY OF CVA. OPERATION: Phlebotomy through the right femoral vein. SURGEON: FINA WEAVER M.D. DESCRIPTION OF PROCEDURE: The right groin was prepped and draped in the usual sterile fashion. With the use of an 18-gauge needle, the right femoral vein was then puncture and blood aspirated. A total of about 125 mL of blood was aspirated until the needle somehow got dislodged. The needle was pulled out and pressure applied for 2 to 3 minutes. The goal was to get about 250 mL of blood. The puncture site was then inspected and no evidence of hematoma noted. I called the hospitalist attending who said that we can hold off getting some more tonight and I told him I can do the other 125 mL in the morning if he still needs it. The patient complained of discomfort during the procedure and some headache. Blood pressure went up to 177/117. After a few minutes of removal of the needle, pressure was attained and at this time was noted to be about 160/87. The heart rate remained the same at around 70 per minute. The patient has a pacer and appears to have no obvious pacer spikes indicating possible higher heart rate from the patient's own heart rate over the pacemaker set rate. The patient tolerated the procedure well. DICTATING PHYSICIAN: FINA WEAVER M.D. [id number] PHY#: [id number] ID: [id number] JOB#: [id number] ACCT: [id number] cc:FINA WEAVER M.D. >
[2016-10-02] MEDS: NORMAL SALINE 1000 ML 1,000 ML IV SCH (03:22)
[2016-10-02 03:54] LABS: ANION GAP 8 (5-19); BLOOD UREA NITROGEN 18 mg/dL (7-20); CALCIUM 9.1 mg/dL (8.4-10.2); CARBON DIOXIDE 30 mmol/L (22-30); CHLORIDE 104 mmol/L (98-107); GLUCOSE 98 mg/dL (75-110); POTASSIUM 4.3 mmol/L (3.6-5.0); SODIUM 141.8 mmol/L (137-145)
[2016-10-02] MEDS: HEPARIN SOD (PORCINE) 5,000 UNIT/ML 1 ML SYRINGE SUBCUT SCH ×3 (06:00→22:27)
--- NOTE | 2016-10-02 08:54 | PDOC CONSULTATION ---
Consultation Consult Date: 10/02/16 Attending physician:: TIFFANIE LANE Consult reason:: Elev Hb/HCT, eval for acute stroke History of Present Illness Admission Date/PCP: 10/01/16 15:41 Patient complains of: Weakness, single sided weakness History of Present Illness: 65 y/o M w/ known hx of DM2, HTN, CHF, who had prev hospitalization and transfer to [facility] w/ acute stroke, current on rx w/ ASA + PLAVIX, presents w/ acute weakness, L sided, dizziness, confusion, BG was low at 20. Pt is on testosterone replacement. Presents w/ HB 19 and HCT 58. We were consulted for eval for polycythemia. Past Medical History Cardiac Medical History: Reports: Hyperlipidema, Hypertension Pulmonary Medical History: Reports: None, Pneumonia EENT Medical History: Reports: None, Other - Polycythemia, on testosterone replacement will check LH, was prior smoker but not in last 5 years Neurological Medical History: Reports: None Endocrine Medical History: Reports: Diabetes Mellitus Type 2, Obesity Renal/ Medical History: Reports: None Malignancy Medical History: Reports: None GI Medical History: Reports: None Musculoskeltal Medical History: Reports: None Traumatic Medical History: Reports: None Hematology: Reports: Other - Polycythemia, on testosterone replacement will check LH, was prior smoker but not in last 5 years Infectious Medical History: Reports: None Past Surgical History Past Surgical History: Reports: Pacemaker Social History Lives with: Spouse/Significant other Smoking Status: Former Smoker Cigarettes Packs Per Day: 1 Number of Years Smokin Frequency of Alcohol Use: Rare Hx Recreational Drug Use: No Drugs: None - Advance Directive Resuscitation Status: Full Code Family History Family History: None Parental Family History Reviewed: Yes Children Family History Reviewed: Yes Sibling(s) Family History Reviewed.: Yes Medication/Allergy Home Medications: Aspirin [Ecotrin 81 mg EC Tablet] 81 mg PO DAILY 09/19/16 Empagliflozin [Jardiance] 10 mg PO QHS 09/19/16 Escitalopram Oxalate [Lexapro] 20 mg PO DAILY 09/19/16 Lisinopril [Prinivil] 20 mg PO DAILY 09/19/16 Nebivolol HCl [Bystolic 10 mg Tablet] 10 mg PO QHS 09/19/16 Zaleplon [Sonata] 10 mg PO QHS 09/19/16 Atorvastatin Calcium [Lipitor 80 mg Tablet] 80 mg PO QHS 10/01/16 Buspirone HCl [Buspar 15 mg Tablet] 7.5 mg PO BID 10/01/16 Testosterone Cypionate [Depo-Testosterone] 200 mg IM .EVERY 10 DAYS 10/01/16 Allergies/Adverse Reactions: codeine Allergy (Verified 10/01/16 16:37) tuberculin,PPD,multi-puncture Allergy (Verified 10/01/16 16:37) Review of Systems Constitutional: ABSENT: chills, fever(s), headache(s), weight gain, weight loss Eyes: ABSENT: visual disturbances Ears: ABSENT: hearing changes Cardiovascular: ABSENT: chest pain, dyspnea on exertion, edema, orthropnea, palpitations Respiratory: ABSENT: cough, hemoptysis Gastrointestinal: ABSENT: abdominal pain, constipation, diarrhea, hematemesis, hematochezia, nausea, vomiting Genitourinary: ABSENT: dysuria, hematuria Musculoskeletal: ABSENT: joint swelling Integumentary: ABSENT: rash, wounds Neurological: ABSENT: abnormal gait, abnormal speech, confusion, dizziness, focal weakness, syncope Psychiatric: ABSENT: anxiety, depression, homidical ideation, suicidal ideation Endocrine: ABSENT: cold intolerance, heat intolerance, polydipsia, polyuria Hematologic/Lymphatic: ABSENT: easy bleeding, easy bruising Physical Exam Vital Signs: Temp Pulse Resp BP Pulse Ox 97.7 F 70 17 157/101 H 93 10/02/16 08:11 10/02/16 08:11 10/02/16 08:11 10/02/16 08:11 10/02/16 08:11 Intake & Output 10/01/16 10/02/16 10/03/16 06:59 06:59 06:59 Intake Total 2475 Output Total 1400 Balance 1075 Weight 107.1 kg General appearance: PRESENT: no acute distress, well-developed, well-nourished Head exam: PRESENT: atraumatic, normocephalic Eye exam: PRESENT: conjunctiva pink, EOMI, PERRLA. ABSENT: scleral icterus Ear exam: PRESENT: normal external ear exam Mouth exam: PRESENT: moist, tongue midline Neck exam: ABSENT: carotid bruit, JVD, lymphadenopathy, thyromegaly Respiratory exam: PRESENT: clear to auscultation daquan. ABSENT: rales, rhonchi, wheezes Cardiovascular exam: PRESENT: RRR. ABSENT: diastolic murmur, rubs, systolic murmur Pulses: PRESENT: normal dorsalis pedis pul Vascular exam: PRESENT: normal capillary refill GI/Abdominal exam: PRESENT: normal bowel sounds, soft. ABSENT: distended, guarding, mass, organolmegaly, rebound, tenderness Rectal exam: PRESENT: deferred Extremities exam: PRESENT: full ROM. ABSENT: calf tenderness, clubbing, pedal edema Neurological exam: PRESENT: alert, awake, oriented to person, oriented to place , oriented to time, oriented to situation, CN II-XII grossly intact. ABSENT: motor sensory deficit Psychiatric exam: PRESENT: appropriate affect, normal mood. ABSENT: homicidal ideation, suicidal ideation Skin exam: PRESENT: dry, intact, warm. ABSENT: cyanosis, rash Results Laboratory Results: 10/01/16 23:14 10/02/16 03:28 10/01/16 10/02/16 23:14 03:28 WBC 7.1 RBC 5.74 H Hgb 17.6 H Hct 53.1 H MCV 93 MCH 30.6 MCHC 33.1 RDW 15.9 H Plt Count 177 Sodium 141.8 Potassium 4.3 Chloride 104 Carbon Dioxide 30 Anion Gap 8 BUN 18 Creatinine 1.20 Est GFR ( Amer) > 60 Est GFR (Non-Af Amer) > 60 Glucose 98 Calcium 9.1 10/01/16 10/01/16 10/02/16 16:20 21:35 03:28 Troponin I < 0.012 < 0.012 < 0.012 Impressions: Chest X-Ray 10/01/16 11:11 IMPRESSION: Borderline cardiomegaly with chronic lung changes and no acute pulmonary disease. 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 We sent SAVANNAH-2 analysis. Only if this is + should we con't with phlebotomy. Will see pt at oupt to f/u. He will need local PCP so I gave him some recommendations for this. - Time Time Spent: 50 to 70 Minutes Critical Time spent with patient: 25-34 minutes
[2016-10-02] MEDS: CLOPIDOGREL BISULFATE 75 MG TABLET PO SCH (09:14)
[2016-10-02] MEDS: LISINOPRIL 10 MG TABLET PO SCH (09:15)
[2016-10-02] MEDS: ESCITALOPRAM OXALATE 10 MG TABLET PO SCH (09:16)
[2016-10-02] MEDS: FAMOTIDINE 20 MG TABLET PO SCH ×2 (09:16→22:27)
[2016-10-02] MEDS ORDERED: (PENDING PHARMACY ID) (Lisinopril [Prinivil] 20 MG) PO SCH (10:00)
[2016-10-02] MEDS ORDERED: ASPIRIN 81 MG TABLET, ENT COATED PO SCH ×2 (10:00)
[2016-10-02] MEDS ORDERED: ASPIRIN 325 MG TABLET, ENT COATED PO SCH (10:00)
--- NOTE | 2016-10-02 16:28 | PDOC PROGRESS REPORT ---
Subjective Progress Note for:: 10/02/16 Subjective:: Patient seen on rounds. He is resting comfortably on the side of the bed. He denies any new neurological deficits this morning. He denies any further dizziness or headache. He did have an episode during the night of intense dizziness and headache as well as increasing left-sided weakness. Our neurourologist saw the patient and discussed case with [facility] neurology, he was noted to have polycythemia most likely from testosterone injections was not addressed on his prior admission. Commended IV hydration and emergent phlebotomy. This was performed by the surgical list last night. Has had no further symptoms. Physical Exam Vital Signs: Temp Pulse Resp BP Pulse Ox 98.2 F 71 18 146/79 H 95 10/02/16 11:29 10/02/16 12:00 10/02/16 12:00 10/02/16 12:00 10/02/16 12:00 Intake & Output 10/01/16 10/02/16 10/03/16 06:59 06:59 06:59 Intake Total 2475 Output Total 1400 Balance 1075 Weight 107.1 kg General appearance: PRESENT: no acute distress, obese, well-developed, well- nourished, other - juanjose complexion Head exam: PRESENT: atraumatic, normocephalic Eye exam: PRESENT: conjunctiva pink, EOMI, PERRLA. ABSENT: scleral icterus Ear exam: PRESENT: normal external ear exam Mouth exam: PRESENT: moist, tongue midline Neck exam: ABSENT: carotid bruit, JVD, lymphadenopathy, thyromegaly Respiratory exam: PRESENT: clear to auscultation daquan. ABSENT: rales, rhonchi, wheezes Cardiovascular exam: PRESENT: RRR. ABSENT: diastolic murmur, rubs, systolic murmur Pulses: PRESENT: normal dorsalis pedis pul Vascular exam: PRESENT: normal capillary refill GI/Abdominal exam: PRESENT: normal bowel sounds, soft. ABSENT: distended, guarding, mass, organolmegaly, rebound, tenderness Rectal exam: PRESENT: deferred Extremities exam: PRESENT: full ROM. ABSENT: calf tenderness, clubbing, pedal edema Neurological exam: PRESENT: alert, awake, oriented to person, oriented to place , oriented to time, oriented to situation, abnormal gait, CN II-XII grossly intact. ABSENT: motor sensory deficit Psychiatric exam: PRESENT: appropriate affect, normal mood. ABSENT: homicidal ideation, suicidal ideation Skin exam: PRESENT: dry, intact, warm. ABSENT: cyanosis, rash Results Laboratory Results: 10/01/16 23:14 10/02/16 03:28 10/01/16 10/02/16 23:14 03:28 WBC 7.1 RBC 5.74 H Hgb 17.6 H Hct 53.1 H MCV 93 MCH 30.6 MCHC 33.1 RDW 15.9 H Plt Count 177 Sodium 141.8 Potassium 4.3 Chloride 104 Carbon Dioxide 30 Anion Gap 8 BUN 18 Creatinine 1.20 Est GFR ( Amer) > 60 Est GFR (Non-Af Amer) > 60 Glucose 98 Calcium 9.1 10/01/16 10/01/16 10/02/16 16:20 21:35 03:28 Troponin I < 0.012 < 0.012 < 0.012 Impressions: Chest X-Ray 10/01/16 11:11 IMPRESSION: Borderline cardiomegaly with chronic lung changes and no acute pulmonary disease. Head CT 10/01/16 11:11 IMPRESSION: No acute findings Assessment & Plan - Diagnosis (1) Hypoglycemia associated with diabetes Is this a current diagnosis for this admission?: Yes Plan: HbA1c is 6.2, he has had no further episodes of hypoglycemia. (2) CVA (cerebral vascular accident) Qualifiers: Precerebral and cerebral artery: cerebellar artery Laterality of affected vessel: left Is this a current diagnosis for this admission?: Yes Plan: Occurred 2 weeks ago , he is improved and ambulatory, most likely symptoms were exacerbated by severe hypoglycemia.Will continue aspirin, lipitor and Plavix. Symptoms can be asked exacerbated by his polycythemia as well. (3) Diabetes 1.5, managed as type 2 Is this a current diagnosis for this admission?: Yes Plan: Will continue home meds and sliding scale (4) Polycythemia Is this a current diagnosis for this admission?: Yes Plan: Patient underwent emergent phlebotomy last night of 125 cc hemoglobin is 17.6. Down from 19.2. Dr. Wright was consulted from hematology. Blood work was obtained and sent out for polycythemia vera. He recommended no further testosterone injections at this time. He also was instructed not to use his vape ecigarette either - Time Time Spent with patient: 25-34 minutes Critical Time spent with patient: 25-34 minutes Medications reviewed and adjusted accordingly: Yes Anticipated discharge: Home with Homehealth Within: within 24 hours
[2016-10-02] MEDS: ATORVASTATIN CALCIUM 40 MG TABLET PO SCH (22:26)
[2016-10-02] MEDS: NEBIVOLOL HCL 10 MG TABLET PO SCH (22:27)
[2016-10-03] MEDS: HEPARIN SOD (PORCINE) 5,000 UNIT/ML 1 ML SYRINGE SUBCUT SCH (05:31)
[2016-10-03] MEDS ORDERED: ONDANSETRON HCL INJ/PF 4 MG/2 ML SDV IV PRN (08:30)
--- NOTE | 2016-10-03 08:41 | PDOC PROGRESS REPORT ---
Subjective Progress Note for:: 10/03/16 Subjective:: Pt very weak yesteray, walked w/ PT w/ difficulty but better today Physical Exam Vital Signs: Temp Pulse Resp BP Pulse Ox 98.6 F 70 16 157/93 H 95 10/03/16 04:34 10/03/16 04:34 10/03/16 04:34 10/03/16 04:34 10/03/16 04:34 Intake & Output 10/02/16 10/03/16 10/04/16 06:59 06:59 06:59 Intake Total 2475 839 Output Total 1400 1470 Balance 1075 -631 Weight 107.1 kg 105.9 kg General appearance: PRESENT: no acute distress, well-developed, well-nourished Head exam: PRESENT: atraumatic, normocephalic Eye exam: PRESENT: conjunctiva pink, EOMI, PERRLA. ABSENT: scleral icterus Ear exam: PRESENT: normal external ear exam Mouth exam: PRESENT: moist, tongue midline Neck exam: ABSENT: carotid bruit, JVD, lymphadenopathy, thyromegaly Respiratory exam: PRESENT: clear to auscultation dauqan. ABSENT: rales, rhonchi, wheezes Cardiovascular exam: PRESENT: RRR. ABSENT: diastolic murmur, rubs, systolic murmur Pulses: PRESENT: normal dorsalis pedis pul Vascular exam: PRESENT: normal capillary refill GI/Abdominal exam: PRESENT: normal bowel sounds, soft. ABSENT: distended, guarding, mass, organolmegaly, rebound, tenderness Rectal exam: PRESENT: deferred Extremities exam: PRESENT: full ROM. ABSENT: calf tenderness, clubbing, pedal edema Neurological exam: PRESENT: alert, awake, oriented to person, oriented to place , oriented to time, oriented to situation, CN II-XII grossly intact. ABSENT: motor sensory deficit Psychiatric exam: PRESENT: appropriate affect, normal mood. ABSENT: homicidal ideation, suicidal ideation Skin exam: PRESENT: dry, intact, warm. ABSENT: cyanosis, rash Results Laboratory Results: 10/01/16 23:14 10/02/16 03:28 10/01/16 10/01/16 10/02/16 16:20 21:35 03:28 Troponin I < 0.012 < 0.012 < 0.012 Impressions: Chest X-Ray 10/01/16 11:11 IMPRESSION: Borderline cardiomegaly with chronic lung changes and no acute pulmonary disease. Head CT 10/01/16 11:11 IMPRESSION: No acute findings Assessment & Plan - Diagnosis (1) Polycythemia Is this a current diagnosis for this admission?: Yes Plan: Awaiting w/u, will see pt as outpt
[2016-10-03] MEDS: LISINOPRIL 10 MG TABLET PO SCH (09:20)
[2016-10-03] MEDS: CLOPIDOGREL BISULFATE 75 MG TABLET PO SCH (09:21)
[2016-10-03] MEDS: ESCITALOPRAM OXALATE 10 MG TABLET PO SCH (09:21)
[2016-10-03] MEDS: FAMOTIDINE 20 MG TABLET PO SCH (09:22)
[2016-10-03] MEDS ORDERED: ASPIRIN 81 MG TABLET, ENT COATED PO SCH (10:00)
[2016-10-03 10:27] VITALS: BP 104/57
--- NOTE | 2016-10-03 10:59 | PDOC H&P ---
History of Present Illness Admission Date/PCP: 10/01/16 15:41 Patient complains of: Generalized weakness and low blood sugar History of Present Illness: OG BRAND is a 65 year old male with recent diagnosis of left cerebral infarct with mild left residual weakness on 09/19. He was initially seen here, CTA of the brain showed acute left cerebral infarct. There was a questionable narrowing or dissection of left vertebreal artery so he was transferred to [facility] for possible neurosurgical intervention. There was no acute dissection, and vertebral artery did not cause his infarct. He was discharged home the following day on aspirin and plavix. He has been doing well. He does have mild left upper extremity weakness and lower extremity. He is able to ambulate. He states this afternoon, he became acutely diaphoretic and was unable to walk or talk. EMS was called. He was found to have a fingerstick blood glucose of 30 and then 20, he was treated with D50 and transported here. His symptoms have no resolved to baseline. He has no dysphasia or difficulty swallowing. He denies dyspnea, chest pain or shortness of breath. His and sisters are at bedside. He does have permanent pacemaker and is unable to have MRI Past Medical History Cardiac Medical History: Reports: Hyperlipidema, Hypertension Pulmonary Medical History: Reports: None EENT Medical History: Reports: None Neurological Medical History: Reports: None Endocrine Medical History: Reports: Diabetes Mellitus Type 2, Obesity Renal/ Medical History: Reports: None Malignancy Medical History: Reports: None GI Medical History: Reports: None Musculoskeltal Medical History: Reports: None Traumatic Medical History: Reports: None Hematology: Reports: Other - Polycythemia, on testosterone replacement will check LH, was prior smoker but not in last 5 years Infectious Medical History: Reports: None Past Surgical History Past Surgical History: Reports: Pacemaker Social History Information Source: Parent Lives with: Spouse/Significant other Smoking Status: Former Smoker Frequency of Alcohol Use: Rare Hx Recreational Drug Use: No - Advance Directive Resuscitation Status: Full Code Surrogate healthcare decision maker:: Demar Owens Family History Family History: CAD, DM, Hyperlipidemia, Hypertension Parental Family History Reviewed: Yes Children Family History Reviewed: Yes Sibling(s) Family History Reviewed.: Yes Medication/Allergy Home Medications: Aspirin [Ecotrin 81 mg EC Tablet] 81 mg PO DAILY 09/19/16 Empagliflozin [Jardiance] 10 mg PO QHS 09/19/16 Escitalopram Oxalate [Lexapro] 20 mg PO DAILY 09/19/16 Lisinopril [Prinivil] 20 mg PO DAILY 09/19/16 Nebivolol HCl [Bystolic 10 mg Tablet] 10 mg PO QHS 09/19/16 Zaleplon [Sonata] 10 mg PO QHS 09/19/16 Atorvastatin Calcium [Lipitor 80 mg Tablet] 80 mg PO QHS 10/01/16 Buspirone HCl [Buspar 15 mg Tablet] 7.5 mg PO BID 10/01/16 Testosterone Cypionate [Depo-Testosterone] 200 mg IM .EVERY 10 DAYS 10/01/16 Allergies/Adverse Reactions: codeine Allergy (Verified 10/01/16 16:37) tuberculin,PPD,multi-puncture Allergy (Verified 10/01/16 16:37) Review of Systems Constitutional: ABSENT: chills, fever(s), headache(s), weight gain, weight loss Eyes: ABSENT: visual disturbances Ears: ABSENT: hearing changes Cardiovascular: ABSENT: chest pain, dyspnea on exertion, edema, orthropnea, palpitations Respiratory: ABSENT: cough, hemoptysis Gastrointestinal: ABSENT: abdominal pain, constipation, diarrhea, hematemesis, hematochezia, nausea, vomiting Genitourinary: ABSENT: dysuria, hematuria Musculoskeletal: ABSENT: joint swelling Integumentary: ABSENT: rash, wounds Neurological: PRESENT: abnormal gait, dizziness, lack of coordination - resolved , weakness, other - mild left sided weakness from old CVA Psychiatric: ABSENT: anxiety, depression, homidical ideation, suicidal ideation Endocrine: ABSENT: cold intolerance, heat intolerance, polydipsia, polyuria Hematologic/Lymphatic: ABSENT: easy bleeding, easy bruising Physical Exam Vital Signs: Temp Pulse Resp BP Pulse Ox 70 18 145/93 H 96 10/01/16 14:00 10/01/16 16:01 10/01/16 16:01 10/01/16 16:01 Intake & Output 09/30/16 10/01/16 10/02/16 06:59 06:59 06:59 Weight 104.326 kg General appearance: PRESENT: no acute distress, obese, well-developed, well- nourished Head exam: PRESENT: atraumatic, normocephalic Eye exam: PRESENT: conjunctiva pink, EOMI, PERRLA. ABSENT: scleral icterus Ear exam: PRESENT: normal external ear exam Mouth exam: PRESENT: moist, tongue midline Neck exam: ABSENT: carotid bruit, JVD, lymphadenopathy, thyromegaly Respiratory exam: PRESENT: clear to auscultation daquan, symmetrical, unlabored. ABSENT: rales, rhonchi, wheezes Cardiovascular exam: PRESENT: RRR. ABSENT: diastolic murmur, rubs, systolic murmur Pulses: PRESENT: normal dorsalis pedis pul Vascular exam: PRESENT: normal capillary refill GI/Abdominal exam: PRESENT: normal bowel sounds, soft. ABSENT: distended, guarding, mass, organolmegaly, rebound, tenderness Rectal exam: PRESENT: deferred Extremities exam: PRESENT: full ROM. ABSENT: calf tenderness, clubbing, pedal edema Musculoskeletal exam: PRESENT: ambulatory, full ROM, normal inspection Neurological exam: PRESENT: alert, awake, oriented to person, oriented to place , oriented to time, oriented to situation, CN II-XII grossly intact, other - left sided weakness 4/5 muscle strength. ABSENT: motor sensory deficit Psychiatric exam: PRESENT: appropriate affect, normal mood. ABSENT: homicidal ideation, suicidal ideation Skin exam: PRESENT: dry, intact, warm. ABSENT: cyanosis, rash Results Impressions: Chest X-Ray 10/01/16 11:11 IMPRESSION: Borderline cardiomegaly with chronic lung changes and no acute pulmonary disease. Head CT 10/01/16 11:11 IMPRESSION: No acute findings Assessment & Plan - Diagnosis (1) Hypoglycemia associated with diabetes Is this a current diagnosis for this admission?: Yes (2) CVA (cerebral vascular accident) Qualifiers: Precerebral and cerebral artery: cerebellar artery Laterality of affected vessel: left Is this a current diagnosis for this admission?: YesPlan: Occurred 2 weeks ago , he is improved and ambulatory, most likely symptoms were exacerbated by severe hypoglycemia.Will continue aspirin, lipitor and monitor (3) Diabetes 1.5, managed as type 2 Is this a current diagnosis for this admission?: YesPlan: Will continue home meds and sliding scale
[2016-10-03] MEDS ORDERED: BUSPIRONE HCL 10 MG TABLET PO SCH (14:00)
--- NOTE | 2016-10-03 14:17 | PDOC DISCHARGE SUMMARY ---
General - Admit/Disc Date/PCP Admission Date/Primary Care Provider: 10/01/16 15:41 Discharge Date: 10/03/16 - Discharge Diagnosis (1) Hypoglycemia associated with diabetes Is this a current diagnosis for this admission?: Yes Summary: Resolved. 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 HBA1C is 6.2 (4) Polycythemia Is this a current diagnosis for this admission?: Yes Summary: Follow up with hematology. Most likely secondary to testosterone injections. He will discontinue these - Additional Information Resuscitation Status: Full Code Discharge Diet: Diabetic Discharge Activity: Activity As Tolerated, Balance Activity w/Rest Home Medications: Aspirin [Ecotrin 81 mg EC Tablet] 81 mg PO DAILY 09/19/16 Empagliflozin [Jardiance] 10 mg PO QHS 09/19/16 Escitalopram Oxalate [Lexapro] 20 mg PO DAILY 09/19/16 Lisinopril [Prinivil] 20 mg PO DAILY 09/19/16 Nebivolol HCl [Bystolic 10 mg Tablet] 10 mg PO QHS 09/19/16 Zaleplon [Sonata] 10 mg PO QHS 09/19/16 Atorvastatin Calcium [Lipitor 80 mg Tablet] 80 mg PO QHS 10/01/16 Buspirone HCl [Buspar 15 mg Tablet] 7.5 mg PO BID 10/01/16 History of Present Illness Patient complains of: Generalized weakness and diaphoresis History of Present Illness: OG BRAND is a 65 year old male with recent diagnosis of left cerebral infarct with mild left residual weakness on 09/19. He was initially seen here, CTA of the brain showed acute left cerebral infarct. There was a questionable narrowing or dissection of left vertebreal artery so he was transferred to [facility] for possible neurosurgical intervention. There was no acute dissection, and vertebral artery did not cause his infarct. He was discharged home the following day on aspirin and plavix. He has been doing well. He does have mild left upper extremity weakness and lower extremity. He is able to ambulate. He states this afternoon, he became acutely diaphoretic and was unable to walk or talk. EMS was called. He was found to have a fingerstick blood glucose of 30 and then 20, he was treated with D50 and transported here. His symptoms have no resolved to baseline. He has no dysphasia or difficulty swallowing. He denies dyspnea, chest pain or shortness of breath. His and sisters are at bedside. He does have permanent pacemaker and is unable to have MRI Hospital Course Hospital Course: Patient was admitted to [facility] on telemetry. He was noted to have a hemoglobin of 19.2, which it was the same on previous admission for his stroke. He has a blood glucose at home of 20 when EMS arrived. He states he had taken all his medicines and had not eaten. During first hospital night he had headache and increasing left side weakness which was transient. Dr Forte, sandblaster glass, consulted [facility] neurology, who suggested an urgent phlebotomy to lower hemoglobin. Dr Murillo was consulted and removed 125 cc of blood. Patient's symptoms did improve overnight. He participated with PT and OT in the morning. He was weak but able to ambulate with standby assist of 2 and rolling walker. Today he has improved in his functional capacity back to his baseline. He will be going home with his sister in [place] for several week and has home health nursing and PT arranged for him there. Physical Exam Vital Signs: Temp Pulse Resp BP Pulse Ox 97.7 F 70 20 145/76 H 96 10/03/16 09:59 10/03/16 09:59 10/03/16 09:59 10/03/16 09:59 10/03/16 09:59 Intake & Output 10/02/16 10/03/16 10/04/16 06:59 06:59 06:59 Intake Total 2475 839 Output Total 1400 1470 Balance 1075 -631 Weight 107.1 kg 105.9 kg General appearance: PRESENT: no acute distress, obese, well-developed, well- nourished, other - juanjose Head exam: PRESENT: atraumatic, normocephalic Eye exam: PRESENT: conjunctiva pink, EOMI, PERRLA. ABSENT: scleral icterus Ear exam: PRESENT: normal external ear exam Mouth exam: PRESENT: moist, tongue midline Neck exam: ABSENT: carotid bruit, JVD, lymphadenopathy, thyromegaly Respiratory exam: PRESENT: clear to auscultation daquan. ABSENT: rales, rhonchi, wheezes Cardiovascular exam: PRESENT: RRR. ABSENT: diastolic murmur, rubs, systolic murmur Pulses: PRESENT: normal carotid pulses, normal radial pulses Vascular exam: PRESENT: normal capillary refill GI/Abdominal exam: PRESENT: normal bowel sounds, soft. ABSENT: distended, guarding, mass, organolmegaly, rebound, tenderness Rectal exam: PRESENT: deferred Extremities exam: PRESENT: full ROM, other - mild 4/5 muscle strength on the left. ABSENT: calf tenderness, clubbing, pedal edema Neurological exam: PRESENT: alert, awake, oriented to person, oriented to place , oriented to time, oriented to situation, abnormal gait, CN II-XII grossly intact, other - 4/5 left sided muscle strenght. ABSENT: motor sensory deficit Skin exam: PRESENT: dry, erythema, intact, warm. ABSENT: cyanosis, rash Results Laboratory Results: 10/01/16 23:14 10/02/16 03:28 10/01/16 10/01/16 10/02/16 16:20 21:35 03:28 Troponin I < 0.012 < 0.012 < 0.012 Impressions: Chest X-Ray 10/01/16 11:11 IMPRESSION: Borderline cardiomegaly with chronic lung changes and no acute pulmonary disease. Head CT 10/01/16 11:11 IMPRESSION: No acute findings Qualifiers PATEINT BEING DISCHARGED WITH ANY OF THE FOLLOWING DIAGNOSIS?: No Plan Discharge Plan: Home with home health and PT Time Spent: Less than 30 Minutes
== END 2016-10-03 10:31 | disposition home or self-care (01) ==
LOC: ER 10:43 → UNDOADMOB 15:36 → EH 15:36 → 3N 17:22
PROVIDERS: ADMIT Family Medicine; ATTEND Family Medicine
PROC: 069 Lower Veins, Drainage (ICD-10-PCS; principal; 2016-10-02)
DX: E11.649 Type 2 diabetes mellitus with hypoglycemia without coma (principal); I63.9 Cerebral infarction, unspecified; I69.354 Hemiplegia and hemiparesis following cerebral infarction affecting left non-dominant side; D75.1 Secondary polycythemia; I11.0 Hypertensive heart disease with heart failure; I50.9 Heart failure, unspecified; Z72.0 Tobacco use; I69.323 Fluency disorder following cerebral infarction; R27.9 Unspecified lack of coordination; Z79.899 Other long term (current) drug therapy; Z79.82 Long term (current) use of aspirin; Z95.0 Presence of cardiac pacemaker; Z79.84 Long term (current) use of oral hypoglycemic drugs; Z87.891 Personal history of nicotine dependence; Z79.890 Hormone replacement therapy; Z82.49 Family history of ischemic heart disease and other diseases of the circulatory system; Z83.3 Family history of diabetes mellitus
CPT/HCPCS: 93005; 99285; 96374; 96375; 36415 ×3; 82553; 82962 ×3; 82550; 83002; 85025; 85027; 85652; 85610; 85730; 80048; 80053; 84484 ×2; 81270; 83036; 71010; 70450; 93010; 97110; 97163; 92522; 97167; 99195; G0378 ×3; J1644 ×3; J1885; J3490 ×3; J2405; J7030 ×2

== ENCOUNTER 2017-01-19 15:14 | Inpatient (IN) | payer MEDICARE ==
[2017-01-19] MEDS ORDERED: ALBUTEROL SULFATE 0.083% NEB 2.5 MG/3 ML AMPUL NEB ONE (15:31)
[2017-01-19] MEDS ORDERED: IPRATROPIUM/ALBUTEROL 0.5-2.5 MG/3 ML AMPUL NEB ONE ×2 (15:31→17:13)
[2017-01-19 15:38] LABS: ABSOLUTE BASOPHILS # (AUTO) 0.1 10^3/uL (0.0-0.2); ABSOLUTE EOSINOPHILS # (AUTO) 0.1 10^3/uL (0.0-0.6); ABSOLUTE LYMPHOCYTES (AUTO) 0.9 10^3/uL (0.5-4.7); ABSOLUTE MONOCYTES (AUTO) 0.8 10^3/uL (0.1-1.4); BASOPHILS % (AUTO) 0.6 % (0-2); EOSINOPHILS % (AUTO) 1.2 % (0-6); HEMATOCRIT 46.3 % (37.9-51.0); HEMOGLOBIN 15.6 g/dL (13.5-17.0); HGB HCT DIFFERENCE 0.5; MEAN CORPUSCULAR HEMOGLOBIN 30.6 pg (27.0-33.4); MEAN CORPUSCULAR HGB CONC 33.6 g/dL (32.0-36.0); MEAN CORPUSCULAR VOLUME 91 fl (80-97); MONOCYTES % (AUTO) 7.7 % (3-13); RED BLOOD COUNT 5.08 10^6/uL (4.35-5.55); RED CELL DISTRIBUTION WIDTH 14.7 % (11.5-14.0); SEGMENTED NEUTROPHILS % (AUTO) 81.5 % (42-78); WHITE BLOOD COUNT 9.9 10^3/uL (4.0-10.5)
[2017-01-19 15:44] LABS: PROTHROMBIN TIME 21.2 SEC (11.4-15.4)
--- NOTE | 2017-01-19 15:49 | ER Document Report ---
ED General - General Chief Complaint: Breathing Difficulty Stated Complaint: RESPIRATORY DISTRESS Time Seen by Provider: 01/19/17 15:19 Mode of Arrival: Medic Information source: Patient, Emergency Med Personnel, [facility] Records Cannot obtain history due to: Other - moderate Respiratory distress TRAVEL OUTSIDE OF THE [place] IN LAST 30 DAYS: No - HPI Patient complains to provider of: Shortness of breath Onset: Just prior to arrival - Related Data Allergies/Adverse Reactions: codeine Allergy (Verified 10/01/16 16:37) tuberculin,PPD,multi-puncture Allergy (Verified 10/01/16 16:37) Past Medical History - General Information source: Patient, Transfer Record, [facility] Records Cannot obtain history due to: Other - CPAP - Social History Smoking Status: Former Smoker - Currently vapors Family History: CAD, DM, Hyperlipidemia, Hypertension - Past Medical History Cardiac Medical History: Reports: Hx Hypercholesterolemia, Hx Hypertension Pulmonary Medical History: Reports: Hx Pneumonia Neurological Medical History: Reports: Hx Cerebrovascular Accident Endocrine Medical History: Reports: Hx Diabetes Mellitus Type 2 Renal/ Medical History: Reports: Hx Kidney Stones Past Surgical History: Reports: Hx Cardiac Surgery - pacemaker, Hx Pacemaker - Immunizations Hx Diphtheria, Pertussis, Tetanus Vaccination: Yes Hx Pneumococcal Vaccination: 02/18/16 Review of Systems - Review of Systems -: Yes ROS unobtainable due to patient's medical condition Physical Exam - Vital signs Vitals: Resp 18 01/19/17 15:19 - Notes Notes: PHYSICAL EXAMINATION: GENERAL: obese male on CPAP in moderate respiratory distress HEAD: Atraumatic, normocephalic. EYES: Pupils equal round and reactive to light, extraocular movements intact, sclera anicteric, conjunctiva are normal. ENT: mmdry NECK: Normal range of motion, supple without lymphadenopathy LUNGS: Infiltrate expiratory wheezes bilaterally as well as bibasilar crackles HEART: Regular rate and rhythm without murmurs ABDOMEN: Soft, nontender, nondistended abdomen. No guarding, no rebound. No masses appreciated. Musculoskeletal: Normal range of motion, no pitting or edema. No cyanosis. NEUROLOGICAL: Alert and oriented 3. Patient is following commands. Answers questions with head nods appropriately PSYCH: Normal mood, normal affect. SKIN: Warm, Dry, normal turgor, no rashes or lesions noted. Course - Re-evaluation Re-evalutation: 01/19/17 16:49 Patient has improved. He did receive Lasix 40 mg IV and he did diurese 300 cc of clear yellow urine Patient's friend came into the emergency department and she did offer some more history. The patient usually texture each morning to let him know that he is awake and doing well. She did receive that text today. Over the friend states that she was shopping in [place] this morning when she received a phone call from the patient's factory expert. The patient's factory expert went to his house to give his new puppy shot and the patient was not answering the door. The area that his girlfriend did enter the house and found the patient short of breath sitting in his recliner with decreased response. They did call the patient's friend and she initiated 911. Patient was brought in here via EMS shortly thereafter. Patient's friend does state that he did have an upper respiratory infection the last few days. 01/19/17 16:59 I did call the respiratory therapist. Patient does have a respiratory alkalosis on his ABG with pH of 7.55 and a CO2 of 29. Since rate and settings will be adjusted accordingly. - Vital Signs Vital signs: Temp Pulse Resp BP Pulse Ox 100.5 F H 19 118/66 94 01/19/17 21:40 01/19/17 19:54 01/19/17 19:02 01/19/17 19:54 - Laboratory Result Diagrams: 01/19/17 15:19 01/19/17 15:19 Laboratory results interpreted by me: 01/19/17 01/19/17 01/19/17 15:19 15:19 15:19 RDW 14.7 H Seg Neutrophils % 81.5 H Lymphocytes % 9.0 L PT 21.2 H Carbonic Acid ABG pH ABG pCO2 ABG pO2 VBG pH Glucose 114 H POC Glucose Urine Glucose (UA) Urine Blood 01/19/17 01/19/17 01/19/17 15:19 15:26 15:51 RDW Seg Neutrophils % Lymphocytes % PT Carbonic Acid 0.90 L ABG pH 7.55 H ABG pCO2 29.9 L ABG pO2 75.9 L VBG pH 7.43 H Glucose POC Glucose 112 H Urine Glucose (UA) Urine Blood 01/19/17 16:39 RDW Seg Neutrophils % Lymphocytes % PT Carbonic Acid ABG pH ABG pCO2 ABG pO2 VBG pH Glucose POC Glucose Urine Glucose (UA) >=500 H Urine Blood MODERATE H - Diagnostic Test Radiology reviewed: Image reviewed - Mild vascular congestion - EKG Interpretation by Me Additional EKG results interpreted by me: 01/19/17 16:52 EKG done 01/19/2017 at 1535 showed atrial paced complexes with ventricular bigeminy left axis deviation Critical Care Note - Critical Care Note Total time excluding time spent on procedures (mins): 45 Comments: Please document critical care for discussion with patient's family, continual reassessment of patient, institution of BiPAP, discussion with hospitalist Dr. Khan. Interpretation of the VBG as well as ABG and BiPAP adjustment Discharge - Discharge Clinical Impression: BiPAP (biphasic positive airway pressure) dependence Pneumonia Qualifiers: Pneumonia type: due to unspecified organism Laterality: left Lung location: lower lobe of lung Qualified Code(s): J18.1 - Lobar pneumonia, unspecified organism Condition: Serious Admitting Provider: Gertrudeist Roddy khan
[2017-01-19 15:54] LABS: VENOUS BLOOD BASE EXCESS 3.7 mmol/L; VENOUS BLOOD HCO3 28.7 mmol/L (20-32); VENOUS BLOOD PCO2 44.3 mmHg (35-63); VENOUS BLOOD PH 7.43 (7.30-7.42)
[2017-01-19] MEDS ORDERED: FUROSEMIDE INJ/PF 40 MG/4 ML SDV IV ONE (15:56)
[2017-01-19 16:00] LABS: ALANINE AMINOTRANSFERASE 58 U/L (21-72); ALBUMIN 4.1 g/dL (3.5-5.0); ALKALINE PHOSPHATASE 126 U/L (38-126); ANION GAP 14 (5-19); ASPARTATE AMINO TRANSFERASE 33 U/L (17-59); BILIRUBIN,DIRECT 0.3 mg/dL (0.0-0.4); BILIRUBIN,TOTAL 0.6 mg/dL (0.2-1.3); BLOOD UREA NITROGEN 18 mg/dL (7-20); CALCIUM 9.9 mg/dL (8.4-10.2); CARBON DIOXIDE 27 mmol/L (22-30); CHLORIDE 103 mmol/L (98-107); CREATINE KINASE 82 U/L (55-170); CREATININE RESULT 1.16 mg/dL (0.52-1.25); GLUCOSE 114 mg/dL (75-110); SODIUM 143.8 mmol/L (137-145); TOTAL PROTEIN 6.6 g/dL (6.3-8.2)
[2017-01-19 16:12] LABS: CREATINE KINASE MB 0.46 ng/mL (<4.55)
[2017-01-19 16:14] LABS: TROPONIN I < 0.012 ng/mL
--- NOTE | 2017-01-19 16:14 | RADIOLOGY REPORT (SQ) ---
EXAM DESCRIPTION: CHEST SINGLE VIEW COMPLETED DATE/TIME: 01/19/2017 3:39 pm REASON FOR STUDY: bed 2sepsis protocol COMPARISON: 10/01/2016 EXAM PARAMETERS: NUMBER OF VIEWS: One view. TECHNIQUE: Single frontal radiographic view of the chest acquired. RADIATION DOSE: NA LIMITATIONS: None. FINDINGS: LUNGS AND PLEURA: No acute opacities, masses or pneumothorax. Similar chronic interstitia l markings -basilar scarring. No pleural effusion. MEDIASTINUM AND HILAR STRUCTURES: Stable. HEART AND VASCULAR STRUCTURES: Stable cardiomegaly. BONES: No acute findings. HARDWARE: Cardiac pacer. OTHER: No other significant finding. IMPRESSION: NO ACUTE RADIOGRAPHIC FINDING IN THE CHEST.Similar chronic interstitial markings -basila r scarring. TECHNICAL DOCUMENTATION: JOB ID: [id number] [id number] 2010 [employer]- All Rights Reserved
[2017-01-19 16:52] LABS: ARTERIAL BLOOD BASE EXCESS 4.2 mmol/L; ARTERIAL BLOOD O2 SATURATION 96.8 % (94-98)
[2017-01-19 16:53] LABS: APPEARANCE,URINE CLEAR; BILIRUBIN,URINE NEGATIVE (NEGATIVE); GLUCOSE, URINE >=500 mg/dL (NEGATIVE); KETONES,URINE NEGATIVE (NEGATIVE); LEUKOCYTE ESTERASE,URINE NEGATIVE (NEGATIVE); NITRITE,URINE NEGATIVE (NEGATIVE); PROTEIN,URINE NEGATIVE (NEGATIVE); URINE SPECIFIC GRAVITY 1.008; UROBILINOGEN,URINE NEGATIVE mg/dL (<2.0)
[2017-01-19] MEDS ORDERED: CEFTRIAXONE 1 GM/D5W RTU 1 GM/50 ML RTUPB IV ONE (18:13)
[2017-01-19] MEDS ORDERED: AZITHROMYCIN INJ 500 MG VIAL IV ONE (18:14)
[2017-01-19] MEDS ORDERED: GUAIFENESIN SYRP 200 MG/10 ML UDC PO PRN (20:38)
[2017-01-19] MEDS ORDERED: ACETAMINOPHEN 325 MG TABLET PO PRN (20:38)
[2017-01-19] MEDS ORDERED: NORMAL SALINE 1000 ML 1,000 ML IV PRN (20:38)
[2017-01-19] MEDS ORDERED: DEXTROSE 50%-WATER 25 GM/50 ML DISP.SYRIN IV PRN ×2 (20:41)
[2017-01-19] MEDS ORDERED: DEXTROSE 40% GEL 15 GM TUBE PO PRN ×2 (20:41)
[2017-01-19] MEDS ORDERED: GLUCAGON,HUMAN RECOMB 1 MG INJ IM PRN (20:41)
[2017-01-19] MEDS ORDERED: ACETAMINOPHEN 325 MG TABLET ONE (20:43)
[2017-01-19] MEDS ORDERED: NORMAL SALINE 1000 ML 500 ML IV ONE (20:43)
[2017-01-19] MEDS ORDERED: METHYLPREDNISOLONE INJ 40 MG/1 ML SDV IV SCH (20:45)
[2017-01-19] MEDS: METHYLPREDNISOLONE INJ 125 MG/2 ML SDV IV SCH (21:20)
[2017-01-19] MEDS: WARFARIN SODIUM 5 MG TABLET PO SCH (21:21)
[2017-01-19] MEDS: GUAIFENESIN 600 MG TABLET.SA PO SCH (21:21)
[2017-01-19] MEDS: ATORVASTATIN CALCIUM 80 MG TABLET PO SCH (21:21)
[2017-01-19] MEDS: NORMAL SALINE 1000 ML 1,000 ML IV PRN (21:30)
[2017-01-19] MEDS ORDERED: (PENDING PHARMACY ID) (Empagliflozin [Jardiance] 10 MG) PO SCH (22:00)
--- NOTE | 2017-01-19 22:13 | PDOC H&P ---
History of Present Illness Admission Date/PCP: 01/19/17 20:38 History of Present Illness: OG BRAND is a 66 year old male with a PMH of CVA, HTN, sick sinus syndrome s/ p pacemaker, ULYSSES, DM 2, coronary artery disease who presents being hypoxic and initially unresponsive. Patient's history is primarily obtained from his sister Ellyn who is at bedside. She reports that he was not feeling well and that his legs felt weak. Patient has been complaining of some diarrhea. A neighbor went to check on his dog and found him poorly responsive and short of breath. Patient was found to be febrile in the emergency department at 101.6F and was placed on BiPAP due to hypoxia. Patient will arouse, but is somewhat somnolent and confused.. Patient is referred to the hospitalist service for sepsis and pneumonia. Past Medical History Cardiac Medical History: Reports: Coronary Artery Disease, Hyperlipidema, Hypertension, Other - Sick sinus syndrome Pulmonary Medical History: Reports: Chronic Obstructive Pulmonary Disease (COPD) , Pneumonia, Sleep Apnea Neurological Medical History: Reports: Ischemic CVA Endocrine Medical History: Reports: Diabetes Mellitus Type 2, Obesity Past Surgical History Past Surgical History: Reports: Pacemaker Social History Smoking Status: Current Every Day Smoker Cigarettes Packs Per Day: 1 - vapes, used to smoke heavy Frequency of Alcohol Use: Rare Hx Recreational Drug Use: No Drugs: None Hx Prescription Drug Abuse: No - Advance Directive Resuscitation Status: Full Code Surrogate healthcare decision maker:: Ellyn Whitley, sister Family History Family History: CAD, DM, Hyperlipidemia, Hypertension Parental Family History Reviewed: Yes Children Family History Reviewed: Yes Sibling(s) Family History Reviewed.: Yes Medication/Allergy Home Medications: Aspirin [Ecotrin 81 mg EC Tablet] 81 mg PO DAILY 09/19/16 Empagliflozin [Jardiance] 10 mg PO QHS 09/19/16 Escitalopram Oxalate [Lexapro] 20 mg PO DAILY 09/19/16 Lisinopril [Prinivil] 20 mg PO DAILY 09/19/16 Nebivolol HCl [Bystolic 10 mg Tablet] 10 mg PO QHS 09/19/16 Zaleplon [Sonata] 10 mg PO QHS 09/19/16 Atorvastatin Calcium [Lipitor 80 mg Tablet] 80 mg PO QHS 10/01/16 Buspirone HCl [Buspar 15 mg Tablet] 7.5 mg PO BID 10/01/16 Allergies/Adverse Reactions: codeine Allergy (Verified 10/01/16 16:37) tuberculin,PPD,multi-puncture Allergy (Verified 10/01/16 16:37) Review of Systems ROS unobtainable: Due to mental status Physical Exam Vital Signs: Temp Pulse Resp BP Pulse Ox 101.6 F H 19 118/66 94 01/19/17 20:10 01/19/17 19:54 01/19/17 19:02 01/19/17 19:54 General appearance: PRESENT: obese, well-developed, well-nourished, other Exam: Moderate distress and acutely ill appearing Head exam: PRESENT: atraumatic, normocephalic Eye exam: PRESENT: conjunctiva pink, EOMI, PERRLA. ABSENT: conjunctival injection, scleral icterus Ear exam: PRESENT: normal external ear exam Mouth exam: PRESENT: dry mucosa, tongue midline Neck exam: ABSENT: JVD, lymphadenopathy, thyromegaly, tracheal deviation Respiratory exam: PRESENT: accessory muscle use, prolonged expiratory phas, rhonchi, symmetrical, tachypnea, wheezes. ABSENT: rales, retraction Cardiovascular exam: PRESENT: RRR, +S1, +S2. ABSENT: diastolic murmur, gallop, rubs, systolic murmur Pulses: PRESENT: normal dorsalis pedis pul Vascular exam: PRESENT: normal capillary refill GI/Abdominal exam: PRESENT: normal bowel sounds, soft. ABSENT: distended, firm , guarding, mass, Gibson's sign, organolmegaly, rebound, rigid, tenderness Rectal exam: PRESENT: deferred Extremities exam: ABSENT: calf tenderness, clubbing, pedal edema Neurological exam: PRESENT: altered, CN II-XII grossly intact Psychiatric exam: PRESENT: appropriate affect, normal mood. ABSENT: homicidal ideation, suicidal ideation Skin exam: PRESENT: dry, intact, warm. ABSENT: cyanosis, rash Results Laboratory Results: 01/19/17 01/19/17 01/19/17 15:19 15:19 15:19 WBC 9.9 Hgb 15.6 Hct 46.3 Plt Count 201 Seg Neutrophils % 81.5 H INR 1.72 ABG pH ABG pCO2 ABG pO2 ABG HCO3 FiO2 Sodium 143.8 Potassium 4.0 Chloride 103 Carbon Dioxide 27 BUN 18 Creatinine 1.16 Glucose 114 H POC Glucose Calcium 9.9 Total Bilirubin 0.6 Direct Bilirubin 0.3 AST 33 ALT 58 Alkaline Phosphatase 126 Creatine Kinase 82 Troponin I NT-Pro-B Natriuret Pep Total Protein 6.6 Albumin 4.1 01/19/17 01/19/17 01/19/17 15:26 15:51 16:10 WBC Hgb Hct Plt Count Seg Neutrophils % INR ABG pH 7.55 H ABG pCO2 29.9 L ABG pO2 75.9 L ABG HCO3 25.6 FiO2 35% Sodium Potassium Chloride Carbon Dioxide BUN Creatinine Glucose POC Glucose 112 H Calcium Total Bilirubin Direct Bilirubin AST ALT Alkaline Phosphatase Creatine Kinase Troponin I < 0.012 NT-Pro-B Natriuret Pep Total Protein Albumin 01/19/17 16:10 WBC Hgb Hct Plt Count Seg Neutrophils % INR ABG pH ABG pCO2 ABG pO2 ABG HCO3 FiO2 Sodium Potassium Chloride Carbon Dioxide BUN Creatinine Glucose POC Glucose Calcium Total Bilirubin Direct Bilirubin AST ALT Alkaline Phosphatase Creatine Kinase Troponin I NT-Pro-B Natriuret Pep 634 Total Protein Albumin Impressions: Chest X-Ray 01/19/17 15:16 IMPRESSION: NO ACUTE RADIOGRAPHIC FINDING IN THE CHEST.Similar chronic interstitial markings -basilar scarring. Status: Imported from PACS Assessment & Plan - Diagnosis (1) Sepsis Qualifiers: Sepsis type: sepsis due to unspecified organism Qualified Code(s): A41.9 - Sepsis, unspecified organism Is this a current diagnosis for this admission?: Yes Plan: present on admission Maintain map greater than 65 Will judiciously bolus patient in light of prior coronary artery disease Initiate treatment for community-acquired pneumonia Selected Entries 01/19/17 01/19/17 15:42 20:10 Temperature 101.6 F H Respiratory 27 H Rate 01/19/17 15:51 ABG pO2 75.9 L FiO2 35% (2) Pneumonia Qualifiers: Pneumonia type: due to unspecified organism Laterality: left Lung location: lower lobe of lung Qualified Code(s): J18.1 - Lobar pneumonia, unspecified organism Is this a current diagnosis for this admission?: Yes Plan: Initiate patient on Rocephin and azithromycin for community-acquired pneumonia. Place patient on scheduled nebulized treatments and re-evaluate for improvement. PRN Xopenex Place patient on IV Solu-Medrol for his past history of heavy smoking and his continued use of vaping Obtain sputum culture Encourage smoking cessation (3) Acute hypoxemic respiratory failure Is this a current diagnosis for this admission?: Yes Plan: Continue BiPAP as needed and oxygen to maintain saturation greater than 90% (4) DM2 (diabetes mellitus, type 2) Qualifiers: Diabetes mellitus complication status: with unspecified complications Diabetes mellitus custodial insulin use: without custodial use Qualified Code( s): E11.8 - Type 2 diabetes mellitus with unspecified complications Is this a current diagnosis for this admission?: Yes Plan: Continue Jardiance and SSI last A1c 6.2 in 10/03 (5) Subtherapeutic international normalized ratio (INR) Is this a current diagnosis for this admission?: Yes Plan: Monitor daily INR Resume home Coumadin (6) sick sinus syndrome s/p pacemaker Is this a current diagnosis for this admission?: Yes (7) ULYSSES (obstructive sleep apnea) Is this a current diagnosis for this admission?: Yes Plan: Patient may use own CPAP (8) Severe obesity (BMI 35.0-35.9 with comorbidity) Is this a current diagnosis for this admission?: Yes (9) HTN (hypertension) Qualifiers: Hypertension type: unspecified Qualified Code(s): I10 - Essential (primary ) hypertension Is this a current diagnosis for this admission?: Yes Plan: Currently hypotensive hold Antihypertensives (10) HLD (hyperlipidemia) Qualifiers: Hyperlipidemia type: unspecified Qualified Code(s): E78.5 - Hyperlipidemia , unspecified Is this a current diagnosis for this admission?: Yes Plan: Continue Lipitor (12) CVA (cerebral vascular accident) Qualifiers: Precerebral and cerebral artery: cerebellar artery Laterality of affected vessel: left Is this a current diagnosis for this admission?: No Plan: Patient has history of CVA with residual weakness. - Time Time Spent: 50 to 70 Minutes Medications reviewed and adjusted accordingly: Yes Within: Other - Upon improvement of symptomatology - Inpatient Certification Based on my medical assessment, after consideration of the patient's comorbidities, presenting symptoms, or acuity I expect that the services needed warrant INPATIENT care.: Yes I certify that my determination is in accordance with my understanding of Medicare's requirements for reasonable and necessary INPATIENT services [42 CFR 412.3e].: Yes Medical Necessity: Need For IV Fluids, Need For Continuous Telemetry Monitoring , Need for Nebulizer Therapy and Monitoring of Response, Need for IV Antibiotics Post Hospital Care: D/C Referral And Information Aide Documentation
[2017-01-19 23:36] LABS: ARTERIAL BLOOD BASE EXCESS 3.8 mmol/L; ARTERIAL BLOOD O2 SATURATION 94.9 % (94-98)
[2017-01-20] MEDS: NORMAL SALINE 1000 ML 1,000 ML IV PRN ×3 (01:36→19:41)
[2017-01-20] MEDS: IPRATROPIUM/ALBUTEROL 0.5-2.5 MG/3 ML AMPUL NEB SCH ×4 (02:18→19:50)
[2017-01-20] MEDS: METHYLPREDNISOLONE INJ 125 MG/2 ML SDV IV SCH ×4 (02:51→21:24)
[2017-01-20 06:03] LABS: ABSOLUTE LYMPHOCYTES (AUTO) 0.6 10^3/uL (0.5-4.7); ABSOLUTE MONOCYTES (AUTO) 0.2 10^3/uL (0.1-1.4); ABSOLUTE NEUT (AUTO) 10.8 10^3/uL (1.7-8.2); BASOPHILS % (AUTO) 0.1 % (0-2); HEMATOCRIT 43.7 % (37.9-51.0); HEMOGLOBIN 14.3 g/dL (13.5-17.0); HGB HCT DIFFERENCE -0.8; LYMPHOCYTES % (AUTO) 5.4 % (13-45); MEAN CORPUSCULAR HGB CONC 32.9 g/dL (32.0-36.0); MEAN CORPUSCULAR VOLUME 91 fl (80-97); RED BLOOD COUNT 4.78 10^6/uL (4.35-5.55); SEGMENTED NEUTROPHILS % (AUTO) 92.5 % (42-78); WHITE BLOOD COUNT 11.7 10^3/uL (4.0-10.5)
[2017-01-20 06:18] LABS: ARTERIAL BLOOD BASE EXCESS 1.5 mmol/L; ARTERIAL BLOOD O2 SATURATION 93.8 % (94-98)
[2017-01-20 06:19] LABS: PROTHROMBIN TIME 18.7 SEC (11.4-15.4)
[2017-01-20 06:22] LABS: ALANINE AMINOTRANSFERASE 52 U/L (21-72); ALBUMIN 3.7 g/dL (3.5-5.0); ALKALINE PHOSPHATASE 92 U/L (38-126); ANION GAP 13 (5-19); ASPARTATE AMINO TRANSFERASE 21 U/L (17-59); BILIRUBIN,DIRECT 0.3 mg/dL (0.0-0.4); BLOOD UREA NITROGEN 23 mg/dL (7-20); CARBON DIOXIDE 27 mmol/L (22-30); CHLORIDE 102 mmol/L (98-107); CREATININE RESULT 1.24 mg/dL (0.52-1.25); GLUCOSE 210 mg/dL (75-110); POTASSIUM 4.3 mmol/L (3.6-5.0); SODIUM 142.4 mmol/L (137-145); TOTAL PROTEIN 6.1 g/dL (6.3-8.2)
--- NOTE | 2017-01-20 08:44 | EKG REPORT ---
SEVERITY:- ABNORMAL ECG - ATRIAL-PACED COMPLEXES VENTRICULAR BIGEMINY LAD, CONSIDER LEFT ANTERIOR FASCICULAR BLOCK : Confirmed by: Parul Burton 20-Jan-2017 19:13:19
[2017-01-20] MEDS: ESCITALOPRAM OXALATE 10 MG TABLET PO SCH (09:21)
[2017-01-20] MEDS: ASPIRIN 81 MG TABLET, ENT COATED PO SCH (09:21)
[2017-01-20] MEDS: CEFTRIAXONE 1 GM/D5W RTU 1 GM/50 ML RTUPB IV SCH (09:22)
[2017-01-20] MEDS: GUAIFENESIN 600 MG TABLET.SA PO SCH ×2 (09:22→21:18)
--- NOTE | 2017-01-20 09:56 | EKG REPORT ---
SEVERITY:- ABNORMAL ECG - ATRIAL-PACED RHYTHM NONSPECIFIC INTRAVENTRICULAR CONDUCTION DELAY MINIMAL ST DEPRESSION,T INVERSION DIFFUSE LEADS VPC : Confirmed by: Parul Burton 20-Jan-2017 09:55:14
[2017-01-20] MEDS: AZITHROMYCIN 500 MG in DEXTROSE 5%-WATER 250 ML IV SCH (10:26)
[2017-01-20] MEDS: INSULIN LISPRO 100 UNIT/ML 3 ML VIAL SUBCUT PRN ×3 (11:15→21:27)
--- NOTE | 2017-01-20 12:27 | PDOC PROGRESS REPORT ---
Subjective Progress Note for:: 01/20/17 Subjective:: This is a follow-up visit for possible pneumonia. The patient had an episode this morning at around 930 where he had difficulty breathing. The nurse called me and said that his still oxygenating well. The patient was on BiPAP at the time. An anxiolytic and that seemed to resolve the issue. He did start throwing more PVCs on telemetry. When I discussed this with the patient he tells me that he always has extra heartbeats and that is nothing new for him. EKG showed paced rhythm with frequent PVCs. Currently at the bedside the patient feels much better and denies any further worsening of his breathing. Reason For Visit: ACUTE HYPOXEMIC RESPIRATORY FAILURE, PNEUMONIA Physical Exam Vital Signs: Temp Pulse Resp BP Pulse Ox 97.8 F 71 18 100/66 94 01/20/17 06:31 01/20/17 07:58 01/20/17 10:31 01/20/17 10:31 01/20/17 10:31 Pulse Oximeter Continuous Start: 01/19/17 20: 39 Freq: RTQ4 Status: Active Document 01/20/17 07:58 HCR (Rec: 01/20/17 09:54 HCR [email or web address]) Pulse Oximetry Assessment Oxygen Saturation (92-100) 95 Oxygen Delivery Method Bi-pap Fraction of Inspired Oxygen (FIO2) 45 Equipment Usage Equipment Standby Continuous SpO2 Machine # peds Intake & Output 01/19/17 01/20/17 01/21/17 06:59 06:59 06:59 Intake Total 1750 320 Output Total 380 700 Balance 1370 -380 GENERAL: This is a well-developed and nourished appearing white male resting in his bed preparing to eat lunch in no acute distress. HEART: Regular rate and rhythm. No murmurs, rubs or gallops. LUNGS: Diminished in the bases bilaterally with equal rise and fall of the chest. Patient is currently on nasal cannula oxygen and satting at 96% at the bedside ABDOMEN: Soft, nontender, nondistended with normoactive bowel sounds EXTREMETIES: No clubbing, cyanosis or edema. 2+ peripheral pulses bilaterally. NEURO: Awake, alert and oriented 3. Cranial nerves II through XII are grossly intact. Results Laboratory Results: 01/20/17 05:45 01/20/17 05:45 01/19/17 01/20/17 01/20/17 23:16 05:45 05:45 WBC 11.7 H RBC 4.78 Hgb 14.3 Hct 43.7 MCV 91 MCH 30.0 MCHC 32.9 RDW 15.0 H Plt Count 173 Seg Neutrophils % 92.5 H Lymphocytes % 5.4 L Monocytes % 2.0 L Eosinophils % 0.0 Basophils % 0.1 Absolute Neutrophils 10.8 H Absolute Lymphocytes 0.6 Absolute Monocytes 0.2 Absolute Eosinophils 0.0 Absolute Basophils 0.0 Carbonic Acid 1.11 HCO3/H2CO3 Ratio 24:1 ABG pH 7.48 H ABG pCO2 37.0 ABG pO2 68.3 L ABG HCO3 27.1 H ABG O2 Saturation 94.9 ABG Base Excess 3.8 FiO2 35% Sodium 142.4 Potassium 4.3 Chloride 102 Carbon Dioxide 27 Anion Gap 13 BUN 23 H Creatinine 1.24 Est GFR ( Amer) > 60 Est GFR (Non-Af Amer) 59 L Glucose 210 H Calcium 9.0 Total Bilirubin 1.0 AST 21 ALT 52 Alkaline Phosphatase 92 Total Protein 6.1 L Albumin 3.7 01/20/17 06:04 WBC RBC Hgb Hct MCV MCH MCHC RDW Plt Count Seg Neutrophils % Lymphocytes % Monocytes % Eosinophils % Basophils % Absolute Neutrophils Absolute Lymphocytes Absolute Monocytes Absolute Eosinophils Absolute Basophils Carbonic Acid 1.36 H HCO3/H2CO3 Ratio 19:1 ABG pH 7.39 ABG pCO2 45.2 H ABG pO2 69.5 L ABG HCO3 26.9 H ABG O2 Saturation 93.8 L ABG Base Excess 1.5 FiO2 45% Sodium Potassium Chloride Carbon Dioxide Anion Gap BUN Creatinine Est GFR ( Amer) Est GFR (Non-Af Amer) Glucose Calcium Total Bilirubin AST ALT Alkaline Phosphatase Total Protein Albumin Impressions: Chest X-Ray 01/19/17 15:16 IMPRESSION: NO ACUTE RADIOGRAPHIC FINDING IN THE CHEST.Similar chronic interstitial markings -basilar scarring. Assessment & Plan - Diagnosis (1) Acute hypoxemic respiratory failure Is this a current diagnosis for this admission?: Yes Plan: Possibly secondary to underlying pneumonia. Chest x-ray does not show any evidence of pneumonia. Patient has no white count. He was started empirically on Rocephin and Zithromax. BNP is elevated at just over 600. Patient also received a dose of Lasix down in the emergency room. It may be that he has some underlying heart failure. Will obtain cardiac echo. Repeat chest x-ray in the morning. Patient is on bilevel Pap. He is currently satting well on nasal cannula while he is preparing for lunch. If at all possible try and wean him from the bilevel Pap. But if necessary he can certainly go back on them. (2) DM2 (diabetes mellitus, type 2) Qualifiers: Diabetes mellitus complication status: with unspecified complications Diabetes mellitus chcf insulin use: without escalator constructor use Qualified Code( s): E11.8 - Type 2 diabetes mellitus with unspecified complications Is this a current diagnosis for this admission?: Yes Plan: Current blood sugar is 212 at the bedside. Likely this is being driven upward secondary to use of steroids. Continue sliding scale insulin. (3) HLD (hyperlipidemia) Qualifiers: Hyperlipidemia type: unspecified Qualified Code(s): E78.5 - Hyperlipidemia , unspecified Is this a current diagnosis for this admission?: Yes Plan: Continue statin. (4) HTN (hypertension) Qualifiers: Hypertension type: unspecified Qualified Code(s): I10 - Essential (primary ) hypertension Is this a current diagnosis for this admission?: Yes Plan: Continue home meds when appropriate. The patient was hypotensive periodically throughout the night. Therefore, antihypertensives have been held. (5) ULYSSES (obstructive sleep apnea) Is this a current diagnosis for this admission?: Yes (6) Pneumonia Qualifiers: Pneumonia type: due to unspecified organism Laterality: left Lung location: lower lobe of lung Qualified Code(s): J18.1 - Lobar pneumonia, unspecified organism Is this a current diagnosis for this admission?: Yes Plan: Unclear if this patient truly has pneumonia. He may have underlying CHF. I am going to check a cardiac echo and BNP in the morning. His initial BNP was over 600 and he did require diuresis down in the emergency room. (7) Severe obesity (BMI 35.0-35.9 with comorbidity) Is this a current diagnosis for this admission?: Yes Plan: Weight loss through dietary changes and exercise. (8) CVA (cerebral vascular accident) Qualifiers: Precerebral and cerebral artery: cerebellar artery Laterality of affected vessel: left Is this a current diagnosis for this admission?: No Plan: Patient with CVA and residual hemiparesis. Continue home medications. (9) sick sinus syndrome s/p pacemaker Is this a current diagnosis for this admission?: Yes Plan: Patient is paced. He is having multiple PVCs on the monitor. Continue to monitor. Antihypertensives have been held due to hypotension. (10) Subtherapeutic international normalized ratio (INR) Is this a current diagnosis for this admission?: Yes Plan: Continue warfarin. - Time Time Spent with patient: 15-24 minutes
[2017-01-20] MEDS: LEVALBUTEROL HCL NEB 1.25 MG/3 ML AMPUL NEB PRN (14:41)
[2017-01-20] MEDS: ATORVASTATIN CALCIUM 80 MG TABLET PO SCH (21:18)
[2017-01-20] MEDS: BUSPIRONE HCL 10 MG TABLET PO SCH (21:19)
[2017-01-20] MEDS: WARFARIN SODIUM 5 MG TABLET PO SCH (21:19)
[2017-01-20] MEDS ORDERED: (PENDING PHARMACY ID) (Buspirone Hcl [Buspar 15 Mg Tablet] 7.5 MG) PO SCH (22:00)
[2017-01-21] MEDS: IPRATROPIUM/ALBUTEROL 0.5-2.5 MG/3 ML AMPUL NEB SCH ×4 (02:05→20:10)
[2017-01-21] MEDS: METHYLPREDNISOLONE INJ 125 MG/2 ML SDV IV SCH ×4 (02:44→21:23)
[2017-01-21] MEDS: NORMAL SALINE 1000 ML 1,000 ML IV PRN ×2 (04:10→17:50)
[2017-01-21 05:28] LABS: PROTHROMBIN TIME 23.6 SEC (11.4-15.4)
[2017-01-21 05:48] LABS: HEMATOCRIT 40.2 % (37.9-51.0); HEMOGLOBIN 13.3 g/dL (13.5-17.0); HGB HCT DIFFERENCE -0.3; MEAN CORPUSCULAR HEMOGLOBIN 30.7 pg (27.0-33.4); MEAN CORPUSCULAR HGB CONC 33.1 g/dL (32.0-36.0); MEAN CORPUSCULAR VOLUME 93 fl (80-97); RED BLOOD COUNT 4.33 10^6/uL (4.35-5.55); RED CELL DISTRIBUTION WIDTH 15.1 % (11.5-14.0); WHITE BLOOD COUNT 15.4 10^3/uL (4.0-10.5)
[2017-01-21 05:56] LABS: ANION GAP 17 (5-19); BLOOD UREA NITROGEN 24 mg/dL (7-20); CALCIUM 9.1 mg/dL (8.4-10.2); CARBON DIOXIDE 22 mmol/L (22-30); CHLORIDE 103 mmol/L (98-107); CREATININE RESULT 0.85 mg/dL (0.52-1.25); GLUCOSE 198 mg/dL (75-110); MAGNESIUM 1.8 mg/dL (1.6-2.3); POTASSIUM 3.9 mmol/L (3.6-5.0)
[2017-01-21 06:27] LABS: BASOPHILS % (MANUAL) 0 % (0-2); EOSINOPHILS % (MANUAL) 0 % (0-6); LYMPHOCYTES % (MANUAL) 4 % (13-45); TOTAL CELLS COUNTED 100
[2017-01-21 06:29] LABS: BURR CELLS SLIGHT; POIKILOCYTOSIS SLIGHT; TOXIC GRANULATION 1+
[2017-01-21] MEDS: INSULIN LISPRO 100 UNIT/ML 3 ML VIAL SUBCUT PRN ×4 (08:31→21:26)
--- NOTE | 2017-01-21 08:41 | RADIOLOGY REPORT (SQ) ---
EXAM DESCRIPTION: CHEST PA/LAT COMPLETED DATE/TIME: 01/21/2017 7:26 am REASON FOR STUDY: SOB COMPARISON: 01/19/2017. EXAM PARAMETERS: NUMBER OF VIEWS: two views TECHNIQUE: Digital Frontal and Lateral radiographic views of the chest acquired. RADIATION DOSE: NA LIMITATIONS: none FINDINGS: LUNGS AND PLEURA: Bilateral interstitial prominence with scattered linear densities. No f ocal infiltrates, masses or pneumothorax. No pleural effusion. MEDIASTINUM AND HILAR STRUCTURES: No masses or contour abnormalities. HEART AND VASCULAR STRUCTURES: Mild cardiomegaly. BONES: No acute findings. HARDWARE: Pacemaker. Clips in the upper abdomen. OTHER: No other significant finding. IMPRESSION: MILD CARDIOMEGALY. INTERSTITIAL PROMINENCE MAY BE DUE TO SCARRING/ ATELECTASIS ALTHOUGH MILD INTERSTITIAL EDEMA MAY ALSO BE PRESENT. TECHNICAL DOCUMENTATION: JOB ID: [id number] [employer] All Rights Reserved
[2017-01-21] MEDS: GUAIFENESIN 600 MG TABLET.SA PO SCH ×2 (10:24→21:26)
[2017-01-21] MEDS: ESCITALOPRAM OXALATE 10 MG TABLET PO SCH (10:25)
[2017-01-21] MEDS: BUSPIRONE HCL 10 MG TABLET PO SCH ×2 (10:26→21:26)
[2017-01-21] MEDS: CEFTRIAXONE 1 GM/D5W RTU 1 GM/50 ML RTUPB IV SCH (10:27)
[2017-01-21] MEDS: AZITHROMYCIN 500 MG in DEXTROSE 5%-WATER 250 ML IV SCH (12:31)
[2017-01-21] MEDS: ASPIRIN 81 MG TABLET, ENT COATED PO SCH (12:36)
--- NOTE | 2017-01-21 15:25 | PDOC PROGRESS REPORT ---
Subjective Progress Note for:: 01/21/17 Subjective:: Continues to have some shortness of breath. Reason For Visit: ACUTE HYPOXEMIC RESPIRATORY FAILURE, PNEUMONIA Physical Exam Vital Signs: Temp Pulse Resp BP Pulse Ox 97.7 F 70 18 115/55 L 93 01/21/17 11:40 01/21/17 13:33 01/21/17 13:33 01/21/17 11:40 01/21/17 13:33 Pulse Oximeter Continuous Start: 01/19/17 20: 39 Freq: RTQ4 Status: Active Document 01/21/17 12:40 JDR (Rec: 01/21/17 13:33 JDR [email or web address]) Pulse Oximetry Assessment Oxygen Saturation (92-100) 93 Oxygen Flow Rate (L/min) 5 Oxygen Delivery Method Nasal Cannula Equipment Usage Equipment in Use Continuous SpO2 Machine # 9 Intake & Output 01/20/17 01/21/17 01/22/17 06:59 06:59 06:59 Intake Total 1750 4597 360 Output Total 380 2125 200 Balance 1370 2472 160 General appearance: PRESENT: no acute distress Eye exam: PRESENT: conjunctiva pink. ABSENT: scleral icterus Ear exam: PRESENT: normal external ear exam Mouth exam: PRESENT: moist, tongue midline Neck exam: ABSENT: JVD Respiratory exam: PRESENT: wheezes - Bilateral expiratory wheezes. ABSENT: rales, rhonchi Cardiovascular exam: PRESENT: RRR. ABSENT: diastolic murmur, rubs, systolic murmur GI/Abdominal exam: PRESENT: normal bowel sounds, soft. ABSENT: distended, guarding, mass, organolmegaly, rebound, tenderness Extremities exam: ABSENT: calf tenderness, clubbing, pedal edema Neurological exam: PRESENT: alert, awake, oriented to person, oriented to place , oriented to time, oriented to situation, CN II-XII grossly intact. ABSENT: motor sensory deficit Psychiatric exam: PRESENT: appropriate affect Skin exam: PRESENT: dry, intact, warm. ABSENT: cyanosis, rash Results Laboratory Results: 01/21/17 04:09 01/21/17 04:09 01/21/17 01/21/17 04:09 04:09 WBC 15.4 H RBC 4.33 L Hgb 13.3 L Hct 40.2 MCV 93 MCH 30.7 MCHC 33.1 RDW 15.1 H Plt Count 181 Seg Neutrophils % Not Reportable Lymphocytes % Not Reportable Monocytes % Not Reportable Eosinophils % Not Reportable Basophils % Not Reportable Absolute Neutrophils Not Reportable Absolute Lymphocytes Not Reportable Absolute Monocytes Not Reportable Absolute Eosinophils Not Reportable Absolute Basophils Not Reportable Sodium 142.0 Potassium 3.9 Chloride 103 Carbon Dioxide 22 Anion Gap 17 BUN 24 H Creatinine 0.85 Est GFR ( Amer) > 60 Est GFR (Non-Af Amer) > 60 Glucose 198 H Calcium 9.1 Magnesium 1.8 Impressions: Chest X-Ray 01/21/17 08:00 IMPRESSION: MILD CARDIOMEGALY. INTERSTITIAL PROMINENCE MAY BE DUE TO SCARRING / ATELECTASIS ALTHOUGH MILD INTERSTITIAL EDEMA MAY ALSO BE PRESENT. Assessment & Plan - Diagnosis (1) Acute hypoxemic respiratory failure Is this a current diagnosis for this admission?: Yes Plan: Most likely secondary to COPD. The chest x-ray does not show any obvious pneumonia. (2) COPD (chronic obstructive pulmonary disease) Is this a current diagnosis for this admission?: Yes Plan: We will continue with Solu-Medrol and nebulizers as needed. (3) DM2 (diabetes mellitus, type 2) Qualifiers: Diabetes mellitus complication status: with unspecified complications Diabetes mellitus intermediate insulin use: without termite exterminator use Qualified Code( s): E11.8 - Type 2 diabetes mellitus with unspecified complications Is this a current diagnosis for this admission?: Yes Plan: Continue with sliding scale insulin. (4) HLD (hyperlipidemia) Qualifiers: Hyperlipidemia type: unspecified Qualified Code(s): E78.5 - Hyperlipidemia , unspecified Is this a current diagnosis for this admission?: Yes (5) HTN (hypertension) Qualifiers: Hypertension type: unspecified Qualified Code(s): I10 - Essential (primary ) hypertension Is this a current diagnosis for this admission?: Yes (6) ULYSSES (obstructive sleep apnea) Is this a current diagnosis for this admission?: Yes Plan: Continue with BiPAP. (7) Pneumonia Qualifiers: Pneumonia type: due to unspecified organism Laterality: left Lung location: lower lobe of lung Qualified Code(s): J18.1 - Lobar pneumonia, unspecified organism Is this a current diagnosis for this admission?: No Plan: The patient does not have pneumonia. (8) Severe obesity (BMI 35.0-35.9 with comorbidity) Is this a current diagnosis for this admission?: Yes (9) CVA (cerebral vascular accident) Qualifiers: Precerebral and cerebral artery: cerebellar artery Laterality of affected vessel: left Is this a current diagnosis for this admission?: No Plan: Patient has had a previous CVA. Currently on Coumadin. - Time Time Spent with patient: 25-34 minutes - Inpatient Certification Medical Necessity: Need Close Monitoring Due to Risk of Patient Decompensation
[2017-01-21] MEDS: WARFARIN SODIUM 5 MG TABLET PO SCH (21:26)
[2017-01-21] MEDS: ATORVASTATIN CALCIUM 80 MG TABLET PO SCH (21:26)
[2017-01-21] MEDS: LEVALBUTEROL HCL NEB 1.25 MG/3 ML AMPUL NEB PRN (21:27)
[2017-01-21] MEDS: FLUTICASONE NASAL SPRAY 50 MCG/SPRY 120 SPRAY/16 GM NASL SCH (22:04)
[2017-01-21] MEDS ORDERED: CHLORPHENIRAMINE MALEATE 4 MG TABLET PO ONE (23:00)
[2017-01-22] MEDS: IPRATROPIUM/ALBUTEROL 0.5-2.5 MG/3 ML AMPUL NEB SCH ×4 (02:17→19:55)
[2017-01-22] MEDS: METHYLPREDNISOLONE INJ 125 MG/2 ML SDV IV SCH ×4 (02:21→23:20)
[2017-01-22 04:31] LABS: ABSOLUTE LYMPHOCYTES (AUTO) 0.8 10^3/uL (0.5-4.7); ABSOLUTE MONOCYTES (AUTO) 0.5 10^3/uL (0.1-1.4); BASOPHILS % (AUTO) 0.1 % (0-2); HEMATOCRIT 40.2 % (37.9-51.0); HEMOGLOBIN 13.2 g/dL (13.5-17.0); HGB HCT DIFFERENCE -0.6; LYMPHOCYTES % (AUTO) 5.5 % (13-45); MEAN CORPUSCULAR HEMOGLOBIN 30.3 pg (27.0-33.4); MEAN CORPUSCULAR HGB CONC 32.8 g/dL (32.0-36.0); MEAN CORPUSCULAR VOLUME 92 fl (80-97); MONOCYTES % (AUTO) 3.5 % (3-13); RED BLOOD COUNT 4.36 10^6/uL (4.35-5.55); RED CELL DISTRIBUTION WIDTH 15.2 % (11.5-14.0); SEGMENTED NEUTROPHILS % (AUTO) 90.9 % (42-78); WHITE BLOOD COUNT 15.3 10^3/uL (4.0-10.5)
[2017-01-22 04:50] LABS: ANION GAP 16 (5-19); BLOOD UREA NITROGEN 24 mg/dL (7-20); CALCIUM 9.3 mg/dL (8.4-10.2); CARBON DIOXIDE 23 mmol/L (22-30); CHLORIDE 106 mmol/L (98-107); CREATININE RESULT 0.91 mg/dL (0.52-1.25); GLUCOSE 219 mg/dL (75-110); POTASSIUM 4.7 mmol/L (3.6-5.0); SODIUM 144.5 mmol/L (137-145)
[2017-01-22] MEDS: CEFTRIAXONE 1 GM/D5W RTU 1 GM/50 ML RTUPB IV SCH (09:39)
[2017-01-22] MEDS: GUAIFENESIN 600 MG TABLET.SA PO SCH ×2 (09:40→23:01)
[2017-01-22] MEDS: BUSPIRONE HCL 10 MG TABLET PO SCH ×2 (09:40→23:01)
[2017-01-22] MEDS: ESCITALOPRAM OXALATE 10 MG TABLET PO SCH (09:41)
[2017-01-22] MEDS: ASPIRIN 81 MG TABLET, ENT COATED PO SCH (09:41)
[2017-01-22] MEDS: FLUTICASONE NASAL SPRAY 50 MCG/SPRY 120 SPRAY/16 GM NASL SCH ×2 (09:42→22:56)
[2017-01-22] MEDS: AZITHROMYCIN 500 MG in DEXTROSE 5%-WATER 250 ML IV SCH (10:25)
--- NOTE | 2017-01-22 10:38 | PDOC PROGRESS REPORT ---
Subjective Progress Note for:: 01/22/17 Subjective:: Continues to have some shortness of breath. Reason For Visit: ACUTE HYPOXEMIC RESPIRATORY FAILURE, PNEUMONIA Physical Exam Vital Signs: Temp Pulse Resp BP Pulse Ox 97.7 F 70 16 136/67 H 98 01/22/17 08:49 01/22/17 08:49 01/22/17 08:49 01/22/17 08:49 01/22/17 08:49 Pulse Oximeter Continuous Start: 01/19/17 20: 39 Freq: RTQ4 Status: Active Document 01/22/17 08:14 [facility] (Rec: 01/22/17 09:08 [facility] [email or web address]) Pulse Oximetry Assessment Oxygen Saturation (92-100) 92 Oxygen Flow Rate (L/min) 2.5 Oxygen Delivery Method Nasal Cannula Equipment Usage Equipment in Use Continuous SpO2 Machine # 9 Intake & Output 01/21/17 01/22/17 01/23/17 06:59 06:59 06:59 Intake Total 4585 2241 Output Total 2125 800 Balance 2472 1441 General appearance: PRESENT: no acute distress Eye exam: PRESENT: conjunctiva pink. ABSENT: scleral icterus Mouth exam: PRESENT: moist, tongue midline Neck exam: ABSENT: JVD Respiratory exam: PRESENT: wheezes. ABSENT: rales, rhonchi Cardiovascular exam: PRESENT: RRR. ABSENT: diastolic murmur, rubs, systolic murmur GI/Abdominal exam: PRESENT: normal bowel sounds, soft. ABSENT: distended, guarding, mass, organolmegaly, rebound, tenderness Extremities exam: ABSENT: calf tenderness, clubbing, pedal edema Neurological exam: PRESENT: alert, awake, oriented to person, oriented to place , oriented to time, oriented to situation, CN II-XII grossly intact. ABSENT: motor sensory deficit Psychiatric exam: PRESENT: appropriate affect Skin exam: PRESENT: dry, intact, warm. ABSENT: cyanosis, rash Results Laboratory Results: 01/22/17 03:43 01/22/17 03:43 01/22/17 01/22/17 03:43 03:43 WBC 15.3 H RBC 4.36 Hgb 13.2 L Hct 40.2 MCV 92 MCH 30.3 MCHC 32.8 RDW 15.2 H Plt Count 190 Seg Neutrophils % 90.9 H Lymphocytes % 5.5 L Monocytes % 3.5 Eosinophils % 0.0 Basophils % 0.1 Absolute Neutrophils 14.0 H Absolute Lymphocytes 0.8 Absolute Monocytes 0.5 Absolute Eosinophils 0.0 Absolute Basophils 0.0 Sodium 144.5 Potassium 4.7 Chloride 106 Carbon Dioxide 23 Anion Gap 16 BUN 24 H Creatinine 0.91 Est GFR ( Amer) > 60 Est GFR (Non-Af Amer) > 60 Glucose 219 H Calcium 9.3 Impressions: Chest X-Ray 01/21/17 08:00 IMPRESSION: MILD CARDIOMEGALY. INTERSTITIAL PROMINENCE MAY BE DUE TO SCARRING / ATELECTASIS ALTHOUGH MILD INTERSTITIAL EDEMA MAY ALSO BE PRESENT. Assessment & Plan - Diagnosis (1) Acute hypoxemic respiratory failure Is this a current diagnosis for this admission?: Yes Plan: Most likely secondary to COPD. The chest x-ray does not show any obvious pneumonia. He has shown some improvement and we will decrease the Solu-Medrol dose. (2) COPD (chronic obstructive pulmonary disease) Is this a current diagnosis for this admission?: Yes Plan: We will continue with Solu-Medrol at a lower dose and nebulizers as needed. (3) DM2 (diabetes mellitus, type 2) Qualifiers: Diabetes mellitus complication status: with unspecified complications Diabetes mellitus penitentiary insulin use: without computer terminal operator use Qualified Code( s): E11.8 - Type 2 diabetes mellitus with unspecified complications Is this a current diagnosis for this admission?: Yes Plan: Continue with sliding scale insulin. (4) HLD (hyperlipidemia) Qualifiers: Hyperlipidemia type: unspecified Qualified Code(s): E78.5 - Hyperlipidemia , unspecified Is this a current diagnosis for this admission?: Yes (5) HTN (hypertension) Qualifiers: Hypertension type: unspecified Qualified Code(s): I10 - Essential (primary ) hypertension Is this a current diagnosis for this admission?: Yes (6) ULYSSES (obstructive sleep apnea) Is this a current diagnosis for this admission?: Yes Plan: Continue with BiPAP. (7) Pneumonia Qualifiers: Pneumonia type: due to unspecified organism Laterality: left Lung location: lower lobe of lung Qualified Code(s): J18.1 - Lobar pneumonia, unspecified organism Is this a current diagnosis for this admission?: No Plan: The patient does not have pneumonia. (8) Severe obesity (BMI 35.0-35.9 with comorbidity) Is this a current diagnosis for this admission?: Yes (9) CVA (cerebral vascular accident) Qualifiers: Precerebral and cerebral artery: cerebellar artery Laterality of affected vessel: left Is this a current diagnosis for this admission?: No Plan: Patient has had a previous CVA. Currently on Coumadin. - Time Time Spent with patient: 25-34 minutes - Inpatient Certification Medical Necessity: Need Close Monitoring Due to Risk of Patient Decompensation
[2017-01-22] MEDS: INSULIN LISPRO 100 UNIT/ML 3 ML VIAL SUBCUT PRN ×3 (13:32→23:01)
--- NOTE | 2017-01-22 18:45 | XCELERA REPORT ---
[address] [address] Transthoracic Echocardiogram Report Name: OG BRAND Age: 66 yrs Gender: Male : 1950 Patient Status: Inpatient Patient Location: [address] [place], [place] [address] Study Date: 01/20/2017 03:34 PM Height: 69 in Weight: 239 lb BSA: 2.2 m2 Procedure: A two-dimensional transthoracic echocardiogram with color flow and Doppler was performed. Study Quality: Fair. Reason For Study: dyspnea History: dyspnea. Ordering Physician: KRISS ACOSTA Performed By: Malissa Bhakta Interpretation Summary The left ventricle is normal in size. There is normal left ventricular wall thickness. LV EF is 65% Left ventricular systolic function is normal. LV diastolic function not assessed. The left ventricular wall motion is normal. There is no thrombus. The right ventricle is not well visualized secondary to technical limitations The right atrium is normal. The left atrial size is normal. The interatrial septum is intact with no evidence for an atrial septal defect. There is no evidence of mitral valve prolapse. There is no vegetation seen on the mitral valve. There is no mitral valve stenosis. There is no mitral regurgitation noted. There is no aortic valve stenosis There is no LVOT obstruction. No aortic regurgitation is present. There is no tricuspid stenosis. There is a trace amount of tricuspid regurgitation Right ventricular systolic pressure is normal. RVSP is 22 mm of Hg , with RA mean of 5. There is no pulmonic valvular stenosis. There is a trace amount of pulmonic regurgitation There is no pericardial effusion. MMode/2D Measurements & Calculations RVDd: 3.8 cm LVIDd: 4.3 cmFS: 40.6 % Ao root diam: 3.8 cm IVSd: 0.97 cm LVIDs: 2.6 cmEDV(Teich): 83.8 ml LVPWd: 1.0 cmESV(Teich): 23.8 ml Ao root area: 11.6 cm2 EF(Teich): 71.6 % LA dimension: 3.4 cm LVOT diam: 2.3 cm LVOT area: 4.1 cm2 Doppler Measurements & Calculations MV E max cami: MV P1/2t max cami: Ao V2 max: LV V1 max P.0 cm/sec 69.4 cm/sec 130.3 cm/sec 4.9 mmHg MV P1/2t: 51.0 msec Ao max PG: LV V1 max: MVA(P1/2t): 4.3 cm2 6.8 mmHg 110.7 cm/sec MV dec slope: DUSTIN(V,D): 3.5 cm2 398.8 cm/sec2 PA V2 max: PI end-d cami: TR max cami: 82.1 cm/sec 127.0 cm/sec 203.3 cm/sec PA max PG: TR max P.7 mmHg 16.5 mmHg Left Ventricle The left ventricle is normal in size. There is normal left ventricular wall thickness. LV EF is 65%. Left ventricular systolic function is normal. LV diastolic function not assessed. The left ventricular wall motion is normal. There is no thrombus. There is no ventricular septal defect visualized. Right Ventricle The right ventricle is not well visualized secondary to technical limitations. Atria The right atrium is normal. The left atrial size is normal. The interatrial septum is intact with no evidence for an atrial septal defect. Mitral Valve There is no evidence of mitral valve prolapse. There is no vegetation seen on the mitral valve. There is no mitral valve stenosis. There is no mitral regurgitation noted. Aortic Valve There is no aortic valvular vegetation. There is no aortic valve stenosis. There is no LVOT obstruction. No aortic regurgitation is present. Tricuspid Valve There is no tricuspid stenosis. There is a trace amount of tricuspid regurgitation. Right ventricular systolic pressure is normal. RVSP is 22 mm of Hg , with RA mean of 5. Pulmonic Valve There is no pulmonic valvular stenosis. There is a trace amount of pulmonic regurgitation. Great Vessels The aortic root is normal size. Effusions There is no pericardial effusion. : KRISS ACOSTA > Tessy Cash
[2017-01-22] MEDS: WARFARIN SODIUM 5 MG TABLET PO SCH (23:01)
[2017-01-22] MEDS: ATORVASTATIN CALCIUM 80 MG TABLET PO SCH (23:04)
[2017-01-23] MEDS: IPRATROPIUM/ALBUTEROL 0.5-2.5 MG/3 ML AMPUL NEB SCH ×2 (01:43→07:51)
[2017-01-23] MEDS: METHYLPREDNISOLONE INJ 125 MG/2 ML SDV IV SCH ×2 (03:49→08:38)
[2017-01-23 05:28] LABS: PROTHROMBIN TIME 36.5 SEC (11.4-15.4)
[2017-01-23] MEDS: ESCITALOPRAM OXALATE 10 MG TABLET PO SCH (09:30)
[2017-01-23] MEDS: ASPIRIN 81 MG TABLET, ENT COATED PO SCH (09:30)
[2017-01-23] MEDS: CEFTRIAXONE 1 GM/D5W RTU 1 GM/50 ML RTUPB IV SCH (09:30)
[2017-01-23] MEDS: GUAIFENESIN 600 MG TABLET.SA PO SCH (09:30)
[2017-01-23] MEDS: BUSPIRONE HCL 10 MG TABLET PO SCH (09:30)
[2017-01-23] MEDS: FLUTICASONE NASAL SPRAY 50 MCG/SPRY 120 SPRAY/16 GM NASL SCH (09:30)
[2017-01-23] MEDS ORDERED: LEVALBUTEROL HCL NEB 1.25 MG/3 ML AMPUL NEB PRN (10:00)
[2017-01-23] MEDS ORDERED: AZITHROMYCIN 250 MG TABLET PO SCH (10:00)
[2017-01-23] MEDS ORDERED: GUAIFENESIN 600 MG TABLET.SA PO SCH (10:00)
[2017-01-23 12:13] VITALS: BP 113/60
--- NOTE | 2017-01-23 12:59 | PDOC DISCHARGE SUMMARY ---
General - Admit/Disc Date/PCP Admission Date/Primary Care Provider: 01/19/17 20:38 Discharge Date: 01/23/17 - Discharge Diagnosis (1) Acute hypoxemic respiratory failure Is this a current diagnosis for this admission?: Yes Summary: Secondary to COPD (2) COPD (chronic obstructive pulmonary disease) Is this a current diagnosis for this admission?: Yes (3) DM2 (diabetes mellitus, type 2) Is this a current diagnosis for this admission?: Yes (4) HLD (hyperlipidemia) Is this a current diagnosis for this admission?: Yes (5) HTN (hypertension) Is this a current diagnosis for this admission?: Yes (6) ULYSSES (obstructive sleep apnea) Is this a current diagnosis for this admission?: Yes (7) Pneumonia Is this a current diagnosis for this admission?: No Summary: The patient did not have pneumonia during this hospitalization. (8) Severe obesity (BMI 35.0-35.9 with comorbidity) Is this a current diagnosis for this admission?: Yes (9) CVA (cerebral vascular accident) Is this a current diagnosis for this admission?: No - Additional Information Resuscitation Status: Full Code Discharge Diet: Cardiac, Diabetic Discharge Activity: Activity As Tolerated Home Medications: Atorvastatin Calcium [Lipitor 80 mg Tablet] 80 mg PO QHS 01/20/17 Buspirone HCl [Buspar 15 mg Tablet] 7.5 mg PO Q12 01/20/17 Empagliflozin [Jardiance] 10 mg PO DAILY 01/20/17 Escitalopram Oxalate [Lexapro] 20 mg PO DAILY 01/20/17 Lisinopril [Prinivil 40 mg Tablet] 40 mg PO DAILY 01/20/17 Nebivolol HCl [Bystolic 10 mg Tablet] 10 mg PO DAILY 01/20/17 Warfarin Sodium [Coumadin 5 mg Tablet] 5 mg PO DAILY 01/20/17 Zaleplon [Sonata] 10 mg PO HSP PRN 01/20/17 Aspirin [Ecotrin 81 mg EC Tablet] 81 mg PO DAILY tabec 01/23/17 Prednisone 10 mg PO DAILY #39 tablet 01/23/17 History of Present Illness History of Present Illness: OG BRAND is a 66 year old male who has a history of hypertension and sick sinus syndrome as well as diabetes and coronary artery disease who presented with hypoxia and decreased responsiveness. The patient had been found to be febrile with 1-1.6 fever however did not have an obvious pneumonia. There was some hypoxia and wheezing consistent with a COPD exacerbation. The patient was admitted with a diagnosis of sepsis and pneumonia because of the fever and relative hypotension. The patient was confused and was not able to give any history upon admission. Hospital Course Hospital Course: 66-year-old male admitted with a diagnosis of sepsis and pneumonia because of some low-grade fever and hypotension when he presented. The patient also was noted to be hypoxic. Patient initially was diagnosed with pneumonia clinically however chest x-ray did not show any obvious infiltrate. Is felt the patient most likely had a viral syndrome along with acute COPD exacerbation as the cause of the hypoxia and a fever. Patient was treated with IV steroids as well as nebulizers and had improvement in his respiratory status. There was concern there is also a component of congestive heart failure and an echocardiogram was done and showed a normal ejection fraction. The patient had been treated with antibiotics however these were stopped. The patient on the day of discharge was back to his baseline he was no longer hypoxic and was felt that he was stable for discharge. Patient's other medical problems all were stable during this hospitalization. Physical Exam Vital Signs: Temp Pulse Resp BP Pulse Ox 97.8 F 70 18 113/60 91 L 01/23/17 12:09 01/23/17 12:09 01/23/17 12:09 01/23/17 12:09 01/23/17 12:09 Pulse Oximeter Continuous Start: 01/19/17 20: 39 Freq: RTQ4 Status: Complete Document 01/23/17 12:00 [facility] (Rec: 01/23/17 12:27 [facility]DA [email or web address]) Pulse Oximetry Assessment Equipment Usage Equipment Discontinued Continuous SpO2 Machine # 9 Intake & Output 01/22/17 01/23/17 01/24/17 06:59 06:59 06:59 Intake Total 2241 2831 Output Total 383 3400 Balance 1441 -569 General appearance: PRESENT: no acute distress Eye exam: PRESENT: conjunctiva pink. ABSENT: scleral icterus Mouth exam: PRESENT: moist, tongue midline Neck exam: ABSENT: JVD Respiratory exam: PRESENT: clear to auscultation daquan. ABSENT: rales, rhonchi, wheezes Cardiovascular exam: PRESENT: RRR. ABSENT: diastolic murmur, rubs, systolic murmur GI/Abdominal exam: PRESENT: normal bowel sounds, soft. ABSENT: distended, guarding, mass, organolmegaly, rebound, tenderness Extremities exam: ABSENT: calf tenderness, clubbing, pedal edema Neurological exam: PRESENT: alert, awake, oriented to person, oriented to place , oriented to time, oriented to situation, CN II-XII grossly intact. ABSENT: motor sensory deficit Psychiatric exam: PRESENT: appropriate affect Skin exam: PRESENT: dry, intact, warm. ABSENT: cyanosis, rash Results Laboratory Results: 01/22/17 03:43 01/22/17 03:43 Impressions: Chest X-Ray 01/21/17 08:00 IMPRESSION: MILD CARDIOMEGALY. INTERSTITIAL PROMINENCE MAY BE DUE TO SCARRING / ATELECTASIS ALTHOUGH MILD INTERSTITIAL EDEMA MAY ALSO BE PRESENT. Qualifiers PATEINT BEING DISCHARGED WITH ANY OF THE FOLLOWING DIAGNOSIS?: No Plan Discharge Plan: Patient is discharged home in stable condition. Will follow up with primary care in 2 weeks. Time Spent: Greater than 30 Minutes
== END 2017-01-23 12:48 | disposition home or self-care (01) | DRG 190 ==
LOC: ER 15:14 → EH 20:38 → 3N 01-20 15:12
PROVIDERS: ADMIT Family Medicine; ATTEND Family Medicine
PROC: 5A09557 Assistance with Respiratory Ventilation, Greater than 96 Consecutive Hours, Continuous Positive Airway Pressure (ICD-10-PCS; principal; 2017-01-19)
DX: J44.1 Chronic obstructive pulmonary disease with (acute) exacerbation (principal); J96.01 Acute respiratory failure with hypoxia; I69.359 Hemiplegia and hemiparesis following cerebral infarction affecting unspecified side; B34.9 Viral infection, unspecified; I10 Essential (primary) hypertension; E11.9 Type 2 diabetes mellitus without complications; E66.9 Obesity, unspecified; I49.5 Sick sinus syndrome; I25.10 Atherosclerotic heart disease of native coronary artery without angina pectoris; I49.3 Ventricular premature depolarization; F17.200 Nicotine dependence, unspecified, uncomplicated; Z82.49 Family history of ischemic heart disease and other diseases of the circulatory system; Z68.35 Body mass index [BMI] 35.0-35.9, adult; Z83.3 Family history of diabetes mellitus; Z88.6 Allergy status to analgesic agent; Z88.8 Allergy status to other drugs, medicaments and biological substances; Z95.0 Presence of cardiac pacemaker; Z79.01 Long term (current) use of anticoagulants
CPT/HCPCS: 36415; 36600; 71010; 71020; 80048; 80053; 81001; 82550; 82553; 82803; 82962; 83605; 83735; 83880; 84484; 85025; 85610; 87040; 87086; 87804; 93005; 93010; 93306; 94640; 94660; 94667; 94668; 94762; 94799; 99291; J0456; J0696; J1815; J1940; J2930; J3490; J7030; J7060; J7620

== ENCOUNTER → 2018-01-07 | Outpatient (CLI) | payer MEDICARE ==
--- NOTE | 2018-01-07 08:35 | RADIOLOGY REPORT (SQ) ---
EXAM DESCRIPTION: U/S ABDOMEN LIMITED W/O DOP COMPLETED DATE/TIME: 01/07/2018 8:14 am REASON FOR STUDY: RUQ PAIN (R10.11) R10.11 RIGHT UPPER QUADRANT PAIN COMPARISON: None. TECHNIQUE: Dynamic and static grayscale images acquired of the abdomen and recorded on PACS. Additio nal selected color Doppler and spectral images recorded. LIMITATIONS: None. FINDINGS: PANCREAS: No masses. No peripancreatic edema or fluid collections. LIVER: Echotexture is coarse with increased echogenicity consistent with fatty infiltration. LIVER VASCULATURE: Normal directional flow of the main portal vein. GALLBLADDER: Status post cholecystectomy. ULTRASOUND-DETECTED PATE'S SIGN: Negative. INTRAHEPATIC DUCTS AND COMMON DUCT: CBD and intrahepatic ducts normal caliber. No filling defects. INFERIOR VENA CAVA: Normal flow. AORTA: No aneurysm. RIGHT KIDNEY: Normal size. Normal echogenicity. No solid or suspicious masses. Large renal cyst is identified measuring 9.2 x 7.0 x 7.1 cm. No hydronephrosis. No calcifications. PERITONEAL AND RIGHT PLEURAL SPACE: No ascites or effusions. OTHER: No other significant finding. IMPRESSION: FATTY INFILTRATION OF THE LIVER. Status post cholecystectomy. Large right renal cyst. Other findings as noted above TECHNICAL DOCUMENTATION: JOB ID: [id number] [employer]- All Rights Reserved Reading location - IP/workstation name: [email or web address]
== END ==
LOC: RAD 07:27
PROVIDERS: ATTEND Physician Assistant
DX: K76.0 Fatty (change of) liver, not elsewhere classified (principal); R10.11 Right upper quadrant pain
CPT/HCPCS: 76705

== ENCOUNTER → 2019-05-17 | Outpatient (CLI) | payer MEDICARE ==
[2019-05-17 09:58] LABS: ABSOLUTE LYMPHOCYTES (AUTO) 1.2 10^3/uL (0.5-4.7); ABSOLUTE MONOCYTES (AUTO) 0.5 10^3/uL (0.1-1.4); BASOPHILS % (AUTO) 0.4 % (0-2); EOSINOPHILS % (AUTO) 0.8 % (0-6); HEMATOCRIT 40.7 % (37.9-51.0); HEMOGLOBIN 14.1 g/dL (13.5-17.0); LYMPHOCYTES % (AUTO) 25.9 % (13-45); MEAN CORPUSCULAR HEMOGLOBIN 30.7 pg (27.0-33.4); MEAN CORPUSCULAR HGB CONC 34.6 g/dL (32.0-36.0); MEAN CORPUSCULAR VOLUME 89 fl (80-97); MONOCYTES % (AUTO) 9.6 % (3-13); PLATELET COUNT 200 10^3/uL (150-450); RED BLOOD COUNT 4.58 10^6/uL (4.35-5.55); RED CELL DISTRIBUTION WIDTH 14.7 % (11.5-14.0); SEGMENTED NEUTROPHILS % (AUTO) 63.3 % (42-78); TOTAL CELLS COUNTED % (AUTO) 100 %; WHITE BLOOD COUNT 4.7 10^3/uL (4.0-10.5)
[2019-05-17 10:26] LABS: ALBUMIN 4.1 g/dL (3.5-5.0); ALKALINE PHOSPHATASE 130 U/L (38-126); ANION GAP 8 (5-19); ASPARTATE AMINO TRANSFERASE 28 U/L (17-59); BILIRUBIN,TOTAL 0.4 mg/dL (0.2-1.3); BLOOD UREA NITROGEN 16 mg/dL (7-20); CALCIUM 9.2 mg/dL (8.4-10.2); CARBON DIOXIDE 29 mmol/L (22-30); CHLORIDE 105 mmol/L (98-107); GLUCOSE 169 mg/dL (75-110); POTASSIUM 3.8 mmol/L (3.6-5.0); TOTAL PROTEIN 6.8 g/dL (6.3-8.2)
--- NOTE | 2019-05-17 14:27 | RADIOLOGY REPORT (SQ) ---
EXAM DESCRIPTION: KUB IMAGES COMPLETED DATE/TIME: 05/17/2019 9:34 am REASON FOR STUDY: HEMATURIA, UNSPECIFIED R31.9 HEMATURIA, UNSPECIFIED COMPARISON: None. NUMBER OF VIEWS: One view. TECHNIQUE: Supine radiographic image of the abdomen acquired. LIMITATIONS: None. FINDINGS: BOWEL GAS PATTERN: Normal bowel gas pattern. No dilated loops. CALCIFICATIONS: No suspicious calcifications. SOFT TISSUES: No gross mass or suggestion of organomegaly. HARDWARE: None in the abdomen. BONES: No acute fracture. No worrisome bone lesions. OTHER: No other significant finding. IMPRESSION: NO RADIOGRAPHIC EVIDENCE FOR ACUTE ABDOMINAL DISEASE. TECHNICAL DOCUMENTATION: JOB ID: [id number] [employer]- All Rights Reserved Reading location - IP/workstation name: [email or web address]
== END ==
LOC: OD 08:58
PROVIDERS: ATTEND Physician Assistant
DX: R31.9 Hematuria, unspecified (principal)
CPT/HCPCS: 36415; 74018; 80053; 85025; 87086

== ENCOUNTER 2020-03-09 20:36 | Inpatient (IN) | payer MEDICARE ==
[2020-03-09] MEDS ORDERED: RINGERS SOLUTION,LACTATED 1,000 ML IV ONE (21:38)
--- NOTE | 2020-03-09 22:18 | ER Document Report ---
Entered by CECILIA BROUSSARD SCRIBE 03/09/20 [id number] Acting as scribe for:MIKO BEYER, ED General - General Chief Complaint: Shortness Of Breath Stated Complaint: SHORTNESS OF BREATH Time Seen by Provider: 03/09/20 21:18 Primary Care Provider: PRECIOUS SHAH PA-C [Primary Care Provider] - Follow up as needed Information source: Patient Notes: This 69 year old male patient presents to the emergency department today with complaints of malaise, dry cough, body aches, and nausea since 02/29/20. Patient states he was tested positive for covid on 03/03/20. Patient states he is on O2 at home and has been saturating in the 's. Patient states he was worried he had pneumonia and called for EMS. Patient reports history of DM, HTN, COPD, and obstructive sleep apnea. TRAVEL OUTSIDE OF THE [place] IN LAST 30 DAYS: No - Related Data Allergies/Adverse Reactions: codeine Allergy (Verified 10/01/16 16:37) tuberculin,PPD,multi-puncture Allergy (Verified 10/01/16 16:37) Home Medications: Lasix. Lisinopril. Januvia Past Medical History - General Information source: Patient - Social History Smoking Status: Former Smoker Family History: CAD, DM, Hyperlipidemia, Hypertension - Past Medical History Cardiac Medical History: Reports: Hx Congestive Heart Failure, Hx Coronary Artery Disease, Hx Heart Attack, Hx Hypercholesterolemia, Hx Hypertension Pulmonary Medical History: Reports: Hx COPD, Hx Pneumonia, Hx Sleep Apnea Neurological Medical History: Reports: Hx Cerebrovascular Accident Endocrine Medical History: Reports: Hx Diabetes Mellitus Type 1, Hx Diabetes Mellitus Type 2 Renal/ Medical History: Reports: Hx Kidney Stones Past Surgical History: Reports: Hx Cardiac Surgery - pacemaker, Hx Pacemaker - Immunizations Hx Diphtheria, Pertussis, Tetanus Vaccination: Yes Hx Pneumococcal Vaccination: 02/18/16 Review of Systems - Review of Systems Constitutional: See HPI, Malaise, Other - covid + EENT: No symptoms reported Cardiovascular: No symptoms reported Respiratory: See HPI, Cough, Other - Low O2 saturation Gastrointestinal: See HPI, Nausea Genitourinary: No symptoms reported Male Genitourinary: No symptoms reported Musculoskeletal: No symptoms reported Skin: No symptoms reported Hematologic/Lymphatic: No symptoms reported Neurological/Psychological: No symptoms reported -: Yes All other systems reviewed and negative Physical Exam - Vital signs Vitals: Resp Pulse Ox 16 95 03/09/20 20:39 03/09/20 20:39 - General General appearance: Alert - HEENT Head: Normocephalic, Atraumatic Eyes: Normal Pupils: PERRL Mucous membranes: Dry - mild - Respiratory Respiratory status: No respiratory distress Chest status: Nontender Chest palpation: Normal Notes: Diminished breath sounds bilaterally. - Cardiovascular Rhythm: Regular Heart sounds: Normal auscultation Murmur: No - Abdominal Inspection: Morbidly Obese Distension: No distension Bowel sounds: Normal Tenderness: Nontender - Extremities General upper extremity: Normal inspection. No: Edema General lower extremity: Normal inspection. No: Edema - Neurological Neuro grossly intact: Yes Cognition: Normal Orientation: AAOx4 Cecelia Coma Scale Eye Opening: Spontaneous Cecelia Coma Scale Verbal: Oriented Cecelia Coma Scale Motor: Obeys Commands Cecelia Coma Scale Total: 15 Speech: Normal Sensory: Normal - Psychological Associated symptoms: Normal affect, Normal mood - Skin Skin Temperature: Warm Skin Moisture: Dry Skin Color: Normal Course - Re-evaluation Re-evalutation: 03/10/20 00:14 MDM 69 year old gentleman with covid and hypoxia. Known Chronic lung disease. Looks nontoxic here but does have an O2 requirement. I have discussed with the hospitalist team and they have graciously agreed to see and evaluate the pt for admission. - Vital Signs Vital signs: Temp Pulse Resp BP Pulse Ox 98.4 F 10 L 139/74 H 93 03/09/20 21:03 03/09/20 22:00 03/09/20 20:41 03/09/20 22:00 - Laboratory Results Result Diagrams: 03/09/20 21:54 03/09/20 21:54 Laboratory Results Interpreted: 03/09/20 03/09/20 03/09/20 21:54 21:54 21:54 WBC 3.9 L RDW 15.1 H PT Sodium 132.7 L Chloride 95 L Glucose 194 H Lactic Acid 2.3 H Magnesium 1.5 L Creatine Kinase 49 L C-Reactive Protein 13.9 H 03/09/20 22:31 WBC RDW PT 22.8 H Sodium Chloride Glucose Lactic Acid Magnesium Creatine Kinase C-Reactive Protein Critical Laboratory Results Reviewed: No Critical Results - Radiology Results Critical Radiology Results Reviewed: No Critical Results Critical Care Note - Critical Care Note Total time excluding time spent on procedures (mins): 30 Discharge - Discharge Clinical Impression: COVID-19 Respiratory failure Qualifiers: Chronicity: acute on chronic Respiratory failure complication: hypoxia Qualified Code(s): J96.21 - Acute and chronic respiratory failure with hypoxia Condition: Stable Disposition: ADMITTED OBSERVATION Admitting Provider: [facility] Unit Admitted: Telemetry Referrals: PRECIOUS SHAH PA-C [Primary Care Provider] - Follow up as needed I personally performed the services described in the documentation, reviewed and edited the documentation which was dictated to the scribe in my presence, and it accurately records my words and actions.
[2020-03-09 22:21] LABS: ABSOLUTE LYMPHOCYTES (AUTO) 0.7 10^3/uL (0.5-4.7); ABSOLUTE MONOCYTES (AUTO) 0.3 10^3/uL (0.1-1.4); ABSOLUTE NEUT (AUTO) 2.9 10^3/uL (1.7-8.2); BASOPHILS % (AUTO) 0.2 % (0-2); EOSINOPHILS % (AUTO) 0.1 % (0-6); HEMOGLOBIN 14.1 g/dL (13.5-17.0); LYMPHOCYTES % (AUTO) 18.1 % (13-45); MEAN CORPUSCULAR HEMOGLOBIN 29.3 pg (27.0-33.4); MEAN CORPUSCULAR HGB CONC 34.3 g/dL (32.0-36.0); MEAN CORPUSCULAR VOLUME 85 fl (80-97); MONOCYTES % (AUTO) 8.7 % (3-13); PLATELET COUNT 151 10^3/uL (150-450); RED CELL DISTRIBUTION WIDTH 15.1 % (11.5-14.0); SEGMENTED NEUTROPHILS % (AUTO) 72.9 % (42-78); TOTAL CELLS COUNTED % (AUTO) 100 %; WHITE BLOOD COUNT 3.9 10^3/uL (4.0-10.5)
--- NOTE | 2020-03-09 22:28 | RADIOLOGY REPORT (SQ) ---
EXAM DESCRIPTION: CHEST SINGLE VIEW CLINICAL HISTORY: 69 years Male, htn COMPARISON: Two views of the chest 01/21/2017 FINDINGS: Lungs: There is prominence of the perihilar and infrahilar interstitial lung markings but the appearance is stable in this may represent scarring. No definitive pneumothorax or pleural effusion. Mediastinum: Heart size is enlarged. Pacemaker is place and multiple leads are seen. Two of the leads are not connected. The overall appearance is stable. Bones: Osseous structures are unchanged IMPRESSION: Enlargement the cardiac silhouette with pacemaker in place. Overall the appearance is stable.
[2020-03-09 22:43] LABS: ALBUMIN 3.7 g/dL (3.5-5.0); ALKALINE PHOSPHATASE 118 U/L (38-126); ANION GAP 8 (5-19); ASPARTATE AMINO TRANSFERASE 36 U/L (17-59); BILIRUBIN,DIRECT 0.3 mg/dL (0.0-0.4); BILIRUBIN,TOTAL 0.5 mg/dL (0.2-1.3); BLOOD UREA NITROGEN 20 mg/dL (7-20); C-REACTIVE PROTEIN 13.9 mg/L (<10.0); CALCIUM 9.2 mg/dL (8.4-10.2); CARBON DIOXIDE 30 mmol/L (22-30); CHLORIDE 95 mmol/L (98-107); CREATINE KINASE 49 U/L (55-170); GLUCOSE 194 mg/dL (75-110); POTASSIUM 3.7 mmol/L (3.6-5.0); TOTAL PROTEIN 6.5 g/dL (6.3-8.2)
[2020-03-10 00:03] LABS: INTERNATIONAL RATION (INR) 2.01; PROTHROMBIN TIME 22.8 SEC (11.4-15.4)
[2020-03-10] MEDS ORDERED: DEXAMETHASONE SOD PHOS INJ 10 MG/1 ML VIAL IV ONE (00:43)
[2020-03-10] MEDS ORDERED: ALBUTEROL SULFATE 0.083% NEB 2.5 MG/3 ML AMPUL NEB PRN (01:02)
[2020-03-10] MEDS ORDERED: ACETAMINOPHEN 325 MG TABLET PO PRN (01:02)
[2020-03-10] MEDS ORDERED: DEXTROSE 50%-WATER 25 GM/50 ML DISP.SYRIN IV PRN ×2 (01:41)
[2020-03-10] MEDS ORDERED: DEXTROSE 40% GEL 15 GM TUBE PO PRN ×2 (01:41)
[2020-03-10] MEDS ORDERED: GLUCAGON,HUMAN RECOMB 1 MG INJ IM PRN (01:41)
--- NOTE | 2020-03-10 02:31 | PDOC H&P ---
History of Present Illness Admission Date/PCP: 03/10/20 00:23 PRECIOUS SHAH PA-C Patient complains of: Shortness of breath History of Present Illness: OG BRAND is a 69 year old male He is feeling sick for about 10 days now, he was diagnosed with coronavirus on 03 March. He is having fever, body aches and pains. Poor appetite. Nauseated but did not vomit. No abdominal pain or diarrhea. Dry cough. Progressive shortness of breath. Eventually the shortness of breath was getting worse and worse and he called ambulance and came to the emergency department. He was found to be hypoxic, he was started on nasal oxygen. When I arrived to see him he was still in mild distress though he was able to maintain oxygen saturation above 90%. He had dry cough and significant generalized weakness. Past Medical History Cardiac Medical History: Reports: Atrial Fibrillation, Congestive Heart Failure - Ejection fraction was normal in 2017, Hyperlipidema, Hypertension, Other - Sinus syndrome, s/p pacemaker implantation Pulmonary Medical History: Reports: Chronic Obstructive Pulmonary Disease (COPD), Pneumonia, Sleep Apnea EENT Medical History: Reports: None Neurological Medical History: Reports: Ischemic CVA Endocrine Medical History: Reports: Diabetes Mellitus Type 2 Renal/ Medical History: Reports: None Malignancy Medical History: Reports: None GI Medical History: Reports: None Skin Medical History: Reports: None Psychiatric Medical History: Denies: Depression Traumatic Medical History: Reports: None Infectious Medical History: Reports: None Past Surgical History Past Surgical History: Reports: Cholecystectomy, Pacemaker Social History Information Source: Patient Lives with: Family Smoking Status: Former Smoker Frequency of Alcohol Use: None Hx Recreational Drug Use: No Drugs: None Hx Prescription Drug Abuse: No - Advance Directive Resuscitation Status: Full Code Family History Family History: CAD, DM, Hyperlipidemia, Hypertension Parental Family History Reviewed: Yes Children Family History Reviewed: Yes Sibling(s) Family History Reviewed.: Yes Medication/Allergy Home Medications: Atorvastatin Calcium [Lipitor 80 mg Tablet] 80 mg PO QHS 01/20/17 Buspirone HCl [Buspar 15 mg Tablet] 7.5 mg PO Q12 01/20/17 Empagliflozin [Jardiance] 10 mg PO DAILY 01/20/17 Escitalopram Oxalate [Lexapro] 20 mg PO DAILY 01/20/17 Lisinopril [Prinivil 40 mg Tablet] 40 mg PO DAILY 01/20/17 Nebivolol HCl [Bystolic 10 mg Tablet] 10 mg PO DAILY 01/20/17 Warfarin Sodium [Jantoven 5 mg Tablet] 5 mg PO DAILY 01/20/17 Zaleplon [Sonata] 10 mg PO HSP PRN 01/20/17 Aspirin [Ecotrin 81 mg EC Tablet] 81 mg PO DAILY tabec 01/23/17 Prednisone 10 mg PO DAILY #39 tablet 01/23/17 Allergies/Adverse Reactions: codeine Allergy (Verified 10/01/16 16:37) tuberculin,PPD,multi-puncture Allergy (Verified 10/01/16 16:37) Review of Systems Constitutional: PRESENT: anorexia, chills, fatigue, fever(s) Eyes: ABSENT: visual disturbances Ears: ABSENT: hearing changes Cardiovascular: ABSENT: chest pain, dyspnea on exertion, edema, orthropnea, palpitations Respiratory: PRESENT: cough, dyspnea. ABSENT: hemoptysis, sputum Gastrointestinal: PRESENT: nausea. ABSENT: abdominal pain, diarrhea, vomiting Genitourinary: ABSENT: dysuria, hematuria Integumentary: ABSENT: rash, wounds Neurological: ABSENT: abnormal gait, abnormal speech, confusion, dizziness, focal weakness, syncope Hematologic/Lymphatic: ABSENT: easy bleeding Physical Exam Vital Signs: Temp Pulse Resp BP Pulse Ox 100.1 F 12 118/76 92 03/10/20 00:01 03/10/20 02:01 03/10/20 02:01 03/10/20 02:01 Intake & Output 03/08/20 03/09/20 03/10/20 06:59 06:59 06:59 Weight 113.5 kg General appearance: PRESENT: cooperative, mild distress, obese Head exam: PRESENT: atraumatic, normocephalic Eye exam: PRESENT: conjunctiva pink, EOMI, PERRLA. ABSENT: scleral icterus Ear exam: PRESENT: normal external ear exam Mouth exam: PRESENT: dry mucosa Throat exam: ABSENT: post pharyngeal erythema Neck exam: ABSENT: carotid bruit, JVD, lymphadenopathy, thyromegaly Respiratory exam: PRESENT: crackles Cardiovascular exam: PRESENT: RRR. ABSENT: diastolic murmur, rubs, systolic murmur Pulses: PRESENT: normal dorsalis pedis pul Vascular exam: PRESENT: normal capillary refill GI/Abdominal exam: PRESENT: normal bowel sounds, soft. ABSENT: distended, guard ing, mass, organolmegaly, rebound, tenderness Rectal exam: PRESENT: deferred Extremities exam: PRESENT: full ROM. ABSENT: calf tenderness, clubbing, pedal edema Musculoskeletal exam: PRESENT: ambulatory Neurological exam: PRESENT: alert, awake, oriented to person, oriented to place, oriented to time, oriented to situation, CN II-XII grossly intact. ABSENT: motor sensory deficit Skin exam: PRESENT: dry, intact, warm. ABSENT: cyanosis, rash Results Laboratory Results: 03/09/20 21:54 03/09/20 21:54 03/09/20 03/09/20 03/09/20 21:54 21:54 21:54 WBC 3.9 L RBC 4.80 Hgb 14.1 Hct 41.0 MCV 85 MCH 29.3 MCHC 34.3 RDW 15.1 H Plt Count 151 Seg Neutrophils % 72.9 Sodium 132.7 L Potassium 3.7 Chloride 95 L Carbon Dioxide 30 Anion Gap 8 BUN 20 Creatinine 1.02 Est GFR ( Amer) > 60 Glucose 194 H Lactic Acid 2.3 H Calcium 9.2 Magnesium 1.5 L Total Bilirubin 0.5 AST 36 Alkaline Phosphatase 118 C-Reactive Protein 13.9 H Total Protein 6.5 Albumin 3.7 03/09/20 03/09/20 21:54 21:54 Creatine Kinase 49 L Troponin I < 0.012 EKG Comments: Atrial paced rhythm. Impressions: Chest X-Ray 03/09/20 21:37 IMPRESSION: Enlargement the cardiac silhouette with pacemaker in place. Overall the appearance is stable. Assessment and Plan - Diagnosis (1) Acute hypoxemic respiratory failure Is this a current diagnosis for this admission?: Yes Plan: He is not on home oxygen. He is requiring oxygen with nasal cannula to maintain oxygen saturation above 90%. He is feeling better with nasal oxygen. Continue respiratory care. (2) Pneumonia due to COVID-19 virus Is this a current diagnosis for this admission?: Yes Plan: He definitely has coronavirus pneumonia. Chest x-ray showing bilateral increased interstitial markings. CT of the chest was not clinically indicated. Diagnosis seems to be clear without it. He is going to be treated with oxygen. He is going to be treated with dexamethasone. Supportive care. He is anticoagulated with warfarin, continue anticoagulation. Isolation protocol. Monitor biomarkers. (3) ULYSSES (obstructive sleep apnea) Is this a current diagnosis for this admission?: Yes Plan: Continue nighttime CPAP. (4) Atrial fibrillation Qualifiers: Atrial fibrillation type: unspecified Qualified Code(s): I48.91 - Unspecified atrial fibrillation Is this a current diagnosis for this admission?: Yes Plan: He has an atrially paced rhythm now. He is anticoagulated most likely for atrial fibrillation. He said he is anticoagulated because he had 3 strokes. 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 Monitor INR daily, adjust warfarin dose as needed. (6) COPD (chronic obstructive pulmonary disease) Qualifiers: COPD type: unspecified COPD Qualified Code(s): J44.9 - Chronic obstructive pulmonary disease, unspecified Is this a current diagnosis for this admission?: Yes Plan: No sign of any COPD exacerbation. No wheezing. Bronchodilators only as needed. The patient is not on any chronic inhaler. (7) HTN (hypertension) Qualifiers: Hypertension type: essential hypertension Qualified Code(s): I10 - Essential (primary) hypertension Is this a current diagnosis for this admission?: Yes Plan: Continue lisinopril and nebivolol. (8) DM2 (diabetes mellitus, type 2) Qualifiers: Diabetes mellitus detention insulin use: without ad terminal makeup operator use Diabetes mellitus complication status: without complication Qualified Code(s): E11.9 - Type 2 diabetes mellitus without complications Is this a current diagnosis for this admission?: Yes Plan: Hold oral antidiabetic agent. Monitor blood glucose. Correction dose insulin as needed. Diabetic diet. (9) History of CVA (cerebrovascular accident) Is this a current diagnosis for this admission?: Yes Plan: The patient has some chronic persistent left-sided weakness secondary to previous CVA. - Plan Summary Summary: Patient was admitted with acute hypoxic respiratory failure secondary to coronavirus pneumonia to intermediate care unit. - Time Time Spent with patient: 35 or more minutes Medications reviewed and adjusted accordingly: Yes Anticipated Discharge Disposition: Home, Self Care Anticipated Discharge Timeframe: 5 to 6 day - Inpatient Certification Based on my medical assessment, after consideration of the patient's comorbidities, presenting symptoms, or acuity I expect that the services needed warrant INPATIENT care.: Yes I certify that my determination is in accordance with my understanding of Medicare's requirements for reasonable and necessary INPATIENT services [42 CFR 412.3e].: Yes Medical Necessity: Failure to Improve With Outpatient Therapy, Need Close Monitoring Due to Risk of Patient Decompensation, Need For Continuous Telemetry Monitoring, Risk of Complication if Not Cared For in Hospital
[2020-03-10 05:07] LABS: APPEARANCE,URINE SLIGHTLY-CLOUDY; BILIRUBIN,URINE NEGATIVE (NEGATIVE); COLOR,URINE YELLOW; GLUCOSE, URINE 50 mg/dL (NEGATIVE); KETONES,URINE TRACE mg/dL (NEGATIVE); LEUKOCYTE ESTERASE,URINE NEGATIVE (NEGATIVE); NITRITE,URINE NEGATIVE (NEGATIVE); PROTEIN,URINE 30 mg/dL (NEGATIVE); URINE SPECIFIC GRAVITY 1.029; UROBILINOGEN,URINE NEGATIVE mg/dL (<2.0)
[2020-03-10 06:10] LABS: ABSOLUTE LYMPHOCYTES (AUTO) 0.7 10^3/uL (0.5-4.7); ABSOLUTE MONOCYTES (AUTO) 0.2 10^3/uL (0.1-1.4); ABSOLUTE NEUT (AUTO) 3.1 10^3/uL (1.7-8.2); BASOPHILS % (AUTO) 0.6 % (0-2); HEMATOCRIT 40.1 % (37.9-51.0); HEMOGLOBIN 13.3 g/dL (13.5-17.0); LYMPHOCYTES % (AUTO) 17.5 % (13-45); MEAN CORPUSCULAR HEMOGLOBIN 28.7 pg (27.0-33.4); MEAN CORPUSCULAR HGB CONC 33.2 g/dL (32.0-36.0); MEAN CORPUSCULAR VOLUME 86 fl (80-97); MONOCYTES % (AUTO) 5.4 % (3-13); PLATELET COUNT 132 10^3/uL (150-450); RED BLOOD COUNT 4.64 10^6/uL (4.35-5.55); RED CELL DISTRIBUTION WIDTH 15.1 % (11.5-14.0); SEGMENTED NEUTROPHILS % (AUTO) 76.5 % (42-78); TOTAL CELLS COUNTED % (AUTO) 100 %; WHITE BLOOD COUNT 4.1 10^3/uL (4.0-10.5)
[2020-03-10 06:15] LABS: INTERNATIONAL RATION (INR) 1.87; PROTHROMBIN TIME 21.6 SEC (11.4-15.4)
[2020-03-10 06:40] LABS: ALBUMIN 3.2 g/dL (3.5-5.0); ALKALINE PHOSPHATASE 104 U/L (38-126); ANION GAP 7 (5-19); ASPARTATE AMINO TRANSFERASE 33 U/L (17-59); BILIRUBIN,DIRECT 0.3 mg/dL (0.0-0.4); BILIRUBIN,TOTAL 0.5 mg/dL (0.2-1.3); BLOOD UREA NITROGEN 20 mg/dL (7-20); C-REACTIVE PROTEIN 17.1 mg/L (<10.0); CALCIUM 8.4 mg/dL (8.4-10.2); CARBON DIOXIDE 28 mmol/L (22-30); CHLORIDE 98 mmol/L (98-107); CREATINE KINASE 58 U/L (55-170); GLUCOSE 272 mg/dL (75-110); POTASSIUM 3.9 mmol/L (3.6-5.0); TOTAL PROTEIN 5.9 g/dL (6.3-8.2)
--- NOTE | 2020-03-10 07:28 | EKG REPORT ---
SEVERITY:- ABNORMAL ECG - ATRIAL-PACED COMPLEXES NONSPECIFIC INTRAVENTRICULAR CONDUCTION DELAY NONSPECIFIC ST-T CHANGES- INFERIOR LEADS : Confirmed by: Shukri Rebolledo MD 10-Mar-2020 07:27:43
[2020-03-10] MEDS ORDERED: DEXAMETHASONE SOD PHOS INJ 10 MG/1 ML VIAL IV SCH (10:00)
[2020-03-10] MEDS ORDERED: ENOXAPARIN SODIUM INJ 40 MG/0.4 ML DISP.SYRIN SUBCUT SCH (10:00)
[2020-03-10] MEDS ORDERED: IVERMECTIN 3 MG TABLET PO ONE (10:00)
[2020-03-10] MEDS: INSULIN LISPRO 100 UNIT/ML 3 ML VIAL SUBCUT SCH ×3 (11:15→18:05)
[2020-03-10] MEDS: ASPIRIN 81 MG TABLET, CHEWABLE PO SCH (11:16)
[2020-03-10] MEDS: CHOLECALCIFEROL (D3) 1,000 UNIT (25 MCG) TABLET PO SCH (11:16)
[2020-03-10] MEDS: ZINC SULFATE 220 MG CAPSULE PO SCH (11:17)
[2020-03-10] MEDS: NEBIVOLOL HCL 10 MG TABLET PO SCH (11:17)
[2020-03-10] MEDS: LISINOPRIL 10 MG TABLET PO SCH (11:17)
[2020-03-10] MEDS: ASCORBIC ACID 500 MG TABLET PO SCH ×2 (11:31→18:06)
[2020-03-10] MEDS ORDERED: GUAIFENESIN SYRP 200 MG/10 ML UDC PO PRN (15:41)
--- NOTE | 2020-03-10 15:45 | Progress Note ---
Provider Note Provider Note: I personally evaluated the patient on my morning rounds. Admission note, imaging and orders were reviewed. Agree with findings. On my exam patient vital signs stable. He was on Oxymizer 13 L satting at 99%. Given his history of COPD oxygen call his 88 to 92%, we are to wean oxygen as tolerated. Nursing made aware of this. Patient states that overall he does feel better than when he initially presented yesterday. Does continue to experience shortness of breath and cough. He is notably tachypneic on exam. Crackles noted on exam. Heart rate regular. Initiated treatment as per MATH+ protocol (methylprednisolone, ivermectin anticoagulation, vitamins) additionally scheduled duo nebs, albuterol as needed, flutter valve, incentive spirometry, and pulm toilet. Added Robitussin as needed. BC pending. Will follow PT/INF (on warfarin), monitor CBC and BMP, monitor COVID inflammatory labs. Patient stable at this time. Discussed plan, expressed understanding. No further complaints or concerns at this time.
[2020-03-10] MEDS: IPRATROPIUM/ALBUTEROL 0.5-2.5 MG/3 ML AMPUL NEB SCH (16:13)
[2020-03-10] MEDS: ATORVASTATIN CALCIUM 80 MG TABLET PO SCH (21:27)
[2020-03-10] MEDS: MELATONIN 5 MG TABLET PO SCH (21:28)
[2020-03-10] MEDS ORDERED: WARFARIN SODIUM 5 MG TABLET PO SCH (22:00)
[2020-03-11] MEDS: IPRATROPIUM/ALBUTEROL 0.5-2.5 MG/3 ML AMPUL NEB SCH ×3 (00:17→15:55)
[2020-03-11 05:31] LABS: ABSOLUTE LYMPHOCYTES (AUTO) 0.9 10^3/uL (0.5-4.7); ABSOLUTE MONOCYTES (AUTO) 0.4 10^3/uL (0.1-1.4); ABSOLUTE NEUT (AUTO) 4.9 10^3/uL (1.7-8.2); BASOPHILS % (AUTO) 0.2 % (0-2); HEMATOCRIT 39.1 % (37.9-51.0); MEAN CORPUSCULAR HEMOGLOBIN 28.7 pg (27.0-33.4); MEAN CORPUSCULAR HGB CONC 33.2 g/dL (32.0-36.0); MEAN CORPUSCULAR VOLUME 87 fl (80-97); PLATELET COUNT 138 10^3/uL (150-450); RED BLOOD COUNT 4.51 10^6/uL (4.35-5.55); RED CELL DISTRIBUTION WIDTH 15.1 % (11.5-14.0); SEGMENTED NEUTROPHILS % (AUTO) 78.8 % (42-78); TOTAL CELLS COUNTED % (AUTO) 100 %; WHITE BLOOD COUNT 6.2 10^3/uL (4.0-10.5)
[2020-03-11 05:34] LABS: INTERNATIONAL RATION (INR) 1.66; PROTHROMBIN TIME 19.7 SEC (11.4-15.4)
[2020-03-11 06:00] LABS: ALBUMIN 3.2 g/dL (3.5-5.0); ALKALINE PHOSPHATASE 101 U/L (38-126); ANION GAP 5 (5-19); ASPARTATE AMINO TRANSFERASE 32 U/L (17-59); BILIRUBIN,DIRECT 0.3 mg/dL (0.0-0.4); BILIRUBIN,TOTAL 0.6 mg/dL (0.2-1.3); BLOOD UREA NITROGEN 23 mg/dL (7-20); CALCIUM 8.6 mg/dL (8.4-10.2); CARBON DIOXIDE 33 mmol/L (22-30); CHLORIDE 97 mmol/L (98-107); CREATINE KINASE 93 U/L (55-170); GLUCOSE 248 mg/dL (75-110); POTASSIUM 3.9 mmol/L (3.6-5.0); TOTAL PROTEIN 5.9 g/dL (6.3-8.2)
--- NOTE | 2020-03-11 07:53 | PDOC PROGRESS REPORT ---
Subjective Date:: 03/11/20 Subjective:: Day 2: Patient seen on morning rounds. He is resting in bed with CPAP on and awakes to the room. O2 sat >95% FiO2 60. Per nursing patient satting 94% on 9 L Oxymizer, had what appeared to be a panic attack, desaturated at that time and was placed back on CPAP. Patient O2sats have remained greater than 95%, the patient requests to remain on CPAP due to comfort. Patient reports increased difficulty breathing. Denies change in cough. Discussed weaning off CPAP to Oxymizer, he agrees to do this in the afternoon once he calms down. Otherwise denies fever, chills, abdominal pain, nausea, vomiting or diarrhea. Reevaluate on afternoon rounds, patient O2 sat consistently >95% on 9 L Oxymizer. Per nurse he is conversing in full sentences, laughing and no longer expressing respiratory distress. Reason For Visit: COVID-19 PNEUMONIA, ACUTE HYPOXIC RESPIRATORY Physical Exam Vital Signs: Temp Pulse Resp BP Pulse Ox 98.3 F 74 22 H 115/61 98 03/11/20 03:51 03/11/20 03:51 03/11/20 03:51 03/11/20 03:51 03/11/20 03:51 Intake & Output 03/10/20 03/11/20 03/12/20 06:59 06:59 06:59 Intake Total 2380 Output Total 800 1275 Balance -800 1105 Weight 113.2 kg 112.3 kg General appearance: PRESENT: cooperative, mild distress - Appears anxious, obese Head exam: PRESENT: atraumatic, normocephalic Eye exam: PRESENT: EOMI. ABSENT: scleral icterus Mouth exam: PRESENT: dry mucosa, tongue midline Neck exam: PRESENT: full ROM. ABSENT: JVD, tenderness Respiratory exam: PRESENT: clear to auscultation daquan, crackles, unlabored Cardiovascular exam: PRESENT: RRR. ABSENT: diastolic murmur, systolic murmur GI/Abdominal exam: PRESENT: normal bowel sounds, soft, other - Protuberant abdomen. ABSENT: distended, tenderness Extremities exam: PRESENT: full ROM. ABSENT: pedal edema Musculoskeletal exam: PRESENT: full ROM. ABSENT: deformity Neurological exam: PRESENT: alert, awake, oriented to person, oriented to place, oriented to time, oriented to situation, CN II-XII grossly intact. ABSENT: altered, motor sensory deficit Psychiatric exam: PRESENT: anxious Skin exam: PRESENT: dry, intact, warm Results Laboratory Results: 03/11/20 04:32 03/11/20 04:32 03/11/20 03/11/20 04:32 04:32 WBC 6.2 RBC 4.51 Hgb 13.0 L Hct 39.1 MCV 87 MCH 28.7 MCHC 33.2 RDW 15.1 H Plt Count 138 L Seg Neutrophils % 78.8 H Sodium 134.6 L Potassium 3.9 Chloride 97 L Carbon Dioxide 33 H Anion Gap 5 BUN 23 H Creatinine 0.82 Est GFR ( Amer) > 60 Glucose 248 H Calcium 8.6 Magnesium 1.7 Total Bilirubin 0.6 AST 32 Alkaline Phosphatase 101 Total Protein 5.9 L Albumin 3.2 L 03/09/20 03/09/20 03/10/20 21:54 21:54 05:49 Creatine Kinase 49 L 58 Troponin I < 0.012 03/10/20 03/11/20 05:49 04:32 Creatine Kinase 93 Troponin I < 0.012 Impressions: Chest X-Ray 03/09/20 21:37 IMPRESSION: Enlargement the cardiac silhouette with pacemaker in place. Overall the appearance is stable. Assessment and Plan - Diagnosis (1) Acute hypoxemic respiratory failure Is this a current diagnosis for this admission?: Yes (2) Pneumonia due to COVID-19 virus Is this a current diagnosis for this admission?: Yes (3) ULYSSES (obstructive sleep apnea) Is this a current diagnosis for this admission?: Yes (4) Atrial fibrillation Qualifiers: Atrial fibrillation type: unspecified Qualified Code(s): I48.91 - Unspecified atrial fibrillation Is this a current diagnosis for this admission?: Yes (5) custodial current use of anticoagulant therapy Is this a current diagnosis for this admission?: Yes (6) COPD (chronic obstructive pulmonary disease) Qualifiers: COPD type: unspecified COPD Qualified Code(s): J44.9 - Chronic obstructive pulmonary disease, unspecified Is this a current diagnosis for this admission?: Yes (7) HTN (hypertension) Qualifiers: Hypertension type: essential hypertension Qualified Code(s): I10 - Essential (primary) hypertension Is this a current diagnosis for this admission?: Yes (8) DM2 (diabetes mellitus, type 2) Qualifiers: Diabetes mellitus residential insulin use: without residential use Diabetes mellitus complication status: without complication Qualified Code(s): E11.9 - Type 2 diabetes mellitus without complications Is this a current diagnosis for this admission?: Yes (9) History of CVA (cerebrovascular accident) Is this a current diagnosis for this admission?: Yes (10) Obesity (BMI 30-39.9) Is this a current diagnosis for this admission?: Yes - Plan Summary Summary: Acute hypoxemic respiratory failure / Pneumonia due to COVID-19 virus: Currently on 9L Oxymizer, O2 sats greater than 95%. - Chest x-ray showing bilateral increased interstitial markings. - CT of the chest was not clinically indicated; cnt monitor, re-evaluate for need. - BC NGTD. - Sputum Cx pending. - Cnt Ivermectin x2, second dose tomorrow. - Day 1/7 solu-medrol 20mg BID x7 days with plan to switch to oral prednisone, taper over 6 days. - Cnt vitamin supplements: zinc, ascorbic acid, vitamin d, melatonin. - Cnt Famotidine. - Cnt Robitussin as needed. - Cnt warfarin as out. - Initiate breathing treatments, flutter valve, incentive spirometry, early ambulation. Long-term anticoagulation / AFIB / Hx CVA - Hx Afib, telemetry shows atrailly paced rhythm - Hx 3 strokes, residual left sided weakness - INR Subtherapeutic, dose adjusted, cnt to monitor INR daily. ULYSSES (obstructive sleep apnea): Continue nighttime CPAP. COPD (chronic obstructive pulmonary disease): No sign of any COPD exacerbation. No wheezing. - Bronchodilators only as needed. - The patient is not on any chronic inhaler. HTN (hypertension): Continue lisinopril and nebivolol. DM2 (diabetes mellitus, type 2): BS running 250-300s, to be expected given recent steroid doses. - HemA1c 9.4. - Required 16u SSI yesterday. Initiate 8u Lantus qHs + 2u qAC, continue to monitor chest. - Cnt monitor BS - Diabetic diet - Hypoglycemic protocol in place Obesity: BMI 36.6. Discussed lifestyle changes and dietary recommendations with patient. Understanding and agreeable. - Time Time Spent with patient: 25-34 minutes Medications reviewed and adjusted accordingly: Yes Anticipated Discharge Disposition: Home, Self Care Anticipated Discharge Timeframe: within 72 hours
[2020-03-11] MEDS ORDERED: INFLUENZA QUAD (6MOS+) 2020-21 VAC 0.5 ML SYR IM ONE (08:00)
[2020-03-11] MEDS ORDERED: LORAZEPAM INJ 2 MG/1 ML VIAL IV PRN (08:20)
[2020-03-11] MEDS: INSULIN LISPRO 100 UNIT/ML 3 ML VIAL SUBCUT SCH ×6 (09:06→18:51)
[2020-03-11] MEDS: LISINOPRIL 10 MG TABLET PO SCH (09:07)
[2020-03-11] MEDS: ASCORBIC ACID 500 MG TABLET PO SCH ×2 (09:07→18:51)
[2020-03-11] MEDS: CHOLECALCIFEROL (D3) 1,000 UNIT (25 MCG) TABLET PO SCH (09:07)
[2020-03-11] MEDS: ASPIRIN 81 MG TABLET, CHEWABLE PO SCH (09:08)
[2020-03-11] MEDS: ZINC SULFATE 220 MG CAPSULE PO SCH (09:08)
[2020-03-11] MEDS: NEBIVOLOL HCL 10 MG TABLET PO SCH (09:08)
[2020-03-11] MEDS ORDERED: METHYLPREDNISOLONE INJ 40 MG/1 ML SDV IV ONE (10:00)
[2020-03-11] MEDS ORDERED: IVERMECTIN 3 MG TABLET PO ONE (10:00)
[2020-03-11] MEDS ORDERED: RINGERS SOLUTION,LACTATED 1,000 ML IV ONE (16:39)
[2020-03-11] MEDS ORDERED: INSULIN GLARGINE,HUM.REC.ANLOG 1,000 UNIT/10 ML VIAL SUBCUT SCH (22:00)
[2020-03-11] MEDS: ATORVASTATIN CALCIUM 80 MG TABLET PO SCH (22:09)
[2020-03-11] MEDS: MELATONIN 5 MG TABLET PO SCH (22:09)
[2020-03-11] MEDS: WARFARIN SODIUM 5 MG TABLET PO SCH (22:10)
[2020-03-12] MEDS: IPRATROPIUM/ALBUTEROL 0.5-2.5 MG/3 ML AMPUL NEB SCH ×3 (00:20→15:40)
[2020-03-12 05:41] LABS: ABSOLUTE LYMPHOCYTES (AUTO) 0.9 10^3/uL (0.5-4.7); ABSOLUTE MONOCYTES (AUTO) 0.4 10^3/uL (0.1-1.4); ABSOLUTE NEUT (AUTO) 5.8 10^3/uL (1.7-8.2); BASOPHILS % (AUTO) 0.1 % (0-2); HEMATOCRIT 37.2 % (37.9-51.0); HEMOGLOBIN 12.5 g/dL (13.5-17.0); LYMPHOCYTES % (AUTO) 12.5 % (13-45); MEAN CORPUSCULAR HGB CONC 33.6 g/dL (32.0-36.0); MEAN CORPUSCULAR VOLUME 86 fl (80-97); MONOCYTES % (AUTO) 6.2 % (3-13); PLATELET COUNT 167 10^3/uL (150-450); RED BLOOD COUNT 4.31 10^6/uL (4.35-5.55); RED CELL DISTRIBUTION WIDTH 15.3 % (11.5-14.0); SEGMENTED NEUTROPHILS % (AUTO) 81.2 % (42-78); TOTAL CELLS COUNTED % (AUTO) 100 %; WHITE BLOOD COUNT 7.1 10^3/uL (4.0-10.5)
[2020-03-12 06:04] LABS: INTERNATIONAL RATION (INR) 1.65; PROTHROMBIN TIME 19.6 SEC (11.4-15.4)
[2020-03-12 06:08] LABS: ALBUMIN 3.3 g/dL (3.5-5.0); ALKALINE PHOSPHATASE 97 U/L (38-126); ANION GAP 6 (5-19); ASPARTATE AMINO TRANSFERASE 29 U/L (17-59); BILIRUBIN,DIRECT 0.2 mg/dL (0.0-0.4); BILIRUBIN,TOTAL 0.5 mg/dL (0.2-1.3); BLOOD UREA NITROGEN 21 mg/dL (7-20); CALCIUM 8.3 mg/dL (8.4-10.2); CARBON DIOXIDE 31 mmol/L (22-30); CHLORIDE 99 mmol/L (98-107); CREATINE KINASE 89 U/L (55-170); GLUCOSE 280 mg/dL (75-110); POTASSIUM 4.3 mmol/L (3.6-5.0)
[2020-03-12] MEDS: INSULIN LISPRO 100 UNIT/ML 3 ML VIAL SUBCUT SCH ×4 (07:59→17:52)
[2020-03-12] MEDS: LISINOPRIL 10 MG TABLET PO SCH ×2 (10:27→10:38)
[2020-03-12] MEDS: ZINC SULFATE 220 MG CAPSULE PO SCH (10:28)
[2020-03-12] MEDS: CHOLECALCIFEROL (D3) 1,000 UNIT (25 MCG) TABLET PO SCH (10:28)
[2020-03-12] MEDS: METHYLPREDNISOLONE INJ 40 MG/1 ML SDV IV SCH ×2 (10:28→21:32)
[2020-03-12] MEDS: ASPIRIN 81 MG TABLET, CHEWABLE PO SCH (10:28)
[2020-03-12] MEDS: ASCORBIC ACID 500 MG TABLET PO SCH ×2 (10:28→17:52)
[2020-03-12] MEDS: NEBIVOLOL HCL 10 MG TABLET PO SCH ×2 (10:29→10:34)
[2020-03-12] MEDS ORDERED: INSULIN LISPRO 100 UNIT/ML 3 ML VIAL SUBCUT SCH ×2 (11:00→16:00)
[2020-03-12] MEDS ORDERED: NORMAL SALINE 1000 ML 1,000 ML IV ONE (12:37)
--- NOTE | 2020-03-12 13:36 | PDOC PROGRESS REPORT ---
Subjective Date:: 03/12/20 Subjective:: 69-year-old male diagnosed with Covid on 03/03. Admitted on 03/10 regarding shortness of breath, cough, fever, body aches. Hypoxic on admission. Currently on MATH+ treatment protocol. Day 3: Patient seen on morning rounds. He is awake and resting comfortably in his bed. O2 sat greater than 95% on 7 L Oxymizer. Telem reviewed, sinus rhythm in the 70s. Reports some residual shortness of breath and cough but overall significant improvement compared to yesterday. Provides me with no further complaints or concerns today. Nursing notes BP 92/55. Will bolus x1, monitor. No further concerns. Reason For Visit: COVID-19 PNEUMONIA, ACUTE HYPOXIC RESPIRATORY Physical Exam Vital Signs: Temp Pulse Resp BP Pulse Ox 97.6 F 73 14 111/67 97 03/12/20 03:27 03/12/20 03:27 03/12/20 04:10 03/12/20 03:27 03/12/20 04:10 Intake & Output 03/11/20 03/12/20 03/13/20 06:59 06:59 06:59 Intake Total 2380 2186 Output Total 1275 1620 Balance 1105 566 Weight 112.3 kg 113.6 kg Additional comments: General appearance: PRESENT: cooperative, in no acute distress. Head exam: PRESENT: atraumatic, normocephalic Eye exam: PRESENT: EOMI. ABSENT: scleral icterus Mouth exam: PRESENT: dry mucosa, tongue midline Neck exam: PRESENT: full ROM. Respiratory exam: PRESENT: clear to auscultation daquan, air movement improved bilaterally, some persistent crackles, unlabored Cardiovascular exam: PRESENT: RRR. GI/Abdominal exam: PRESENT: normal bowel sounds, soft, other - Protuberant abdomen. ABSENT: distended, tenderness Extremities exam: PRESENT: full ROM. ABSENT: pedal edema Musculoskeletal exam: PRESENT: full ROM. ABSENT: deformity Neurological exam: PRESENT: alert, awake, oriented to person, oriented to place, oriented to time, oriented to situation, CN II-XII grossly intact. ABSENT: altered, motor sensory deficit Psychiatric exam: PRESENT: appropriate mood and affect. Skin exam: PRESENT: Skin on bilateral lower extremities is dry and scaling. Otherwise intact. Results Laboratory Results: 03/12/20 04:37 03/12/20 04:37 03/12/20 03/12/20 04:37 04:37 WBC 7.1 RBC 4.31 L Hgb 12.5 L Hct 37.2 L MCV 86 MCH 29.0 MCHC 33.6 RDW 15.3 H Plt Count 167 Seg Neutrophils % 81.2 H Sodium 135.8 L Potassium 4.3 Chloride 99 Carbon Dioxide 31 H Anion Gap 6 BUN 21 H Creatinine 0.80 Est GFR ( Amer) > 60 Glucose 280 H Calcium 8.3 L Total Bilirubin 0.5 AST 29 Alkaline Phosphatase 97 Total Protein 6.0 L Albumin 3.3 L 03/09/20 03/09/20 03/10/20 21:54 21:54 05:49 Creatine Kinase 49 L 58 Troponin I < 0.012 03/10/20 03/11/20 03/12/20 05:49 04:32 04:37 Creatine Kinase 93 89 Troponin I < 0.012 Impressions: Chest X-Ray 03/09/20 21:37 IMPRESSION: Enlargement the cardiac silhouette with pacemaker in place. Overall the appearance is stable. Assessment and Plan - Diagnosis (1) Acute hypoxemic respiratory failure Is this a current diagnosis for this admission?: Yes (2) Pneumonia due to COVID-19 virus Is this a current diagnosis for this admission?: Yes (3) ULYSSES (obstructive sleep apnea) Is this a current diagnosis for this admission?: Yes (4) Atrial fibrillation Qualifiers: Atrial fibrillation type: unspecified Qualified Code(s): I48.91 - Unspecified atrial fibrillation Is this a current diagnosis for this admission?: Yes (5) custodial current use of anticoagulant therapy Is this a current diagnosis for this admission?: Yes (6) COPD (chronic obstructive pulmonary disease) Qualifiers: COPD type: unspecified COPD Qualified Code(s): J44.9 - Chronic obstructive pulmonary disease, unspecified Is this a current diagnosis for this admission?: Yes (7) HTN (hypertension) Qualifiers: Hypertension type: essential hypertension Qualified Code(s): I10 - Essential (primary) hypertension Is this a current diagnosis for this admission?: Yes (8) DM2 (diabetes mellitus, type 2) Qualifiers: Diabetes mellitus custodial insulin use: without custodial use Diabetes mellitus complication status: without complication Qualified Code(s): E11.9 - Type 2 diabetes mellitus without complications Is this a current diagnosis for this admission?: Yes (9) History of CVA (cerebrovascular accident) Is this a current diagnosis for this admission?: Yes (10) Obesity (BMI 30-39.9) Is this a current diagnosis for this admission?: Yes - Plan Summary Summary: Acute hypoxemic respiratory failure / Pneumonia due to COVID-19 virus: Have weaned down to 8L on Oxymizer and has been able to maintain O2 sat greater than 95%. Continue to wean as tolerated by patient - CXR 03/09 bilateral increased interstitial markings. - CT of the chest was not clinically indicated; cnt monitor, re-evaluate for need. - BC NGTD. - Sputum Cx pending; not yet obtained, pt producing very minimal sputum. - Completed Ivermectin x2. - Day 03/26 solu-medrol 20mg BID x7 days with plan to switch to oral prednisone, taper over 6 days. - Cnt vitamin supplements: zinc, ascorbic acid, vitamin d, melatonin. - Cnt Famotidine. - Cnt Robitussin as needed. - Cnt warfarin - Cnt breathing treatments, flutter valve, incentive spirometry, early ambulation. Long-term anticoagulation / AFIB / Hx CVA: INR Subtherapeutic, dose adjusted, cnt to monitor INR daily. - Hx Afib, telemetry shows atrailly paced rhythm - Hx 3 strokes, residual left sided weakness though minimal ULYSSES (obstructive sleep apnea): Continue nighttime CPAP. COPD (chronic obstructive pulmonary disease): No sign of any COPD exacerbation. No wheezing. - Bronchodilators only as needed. - The patient is not on any chronic inhaler. HTN (hypertension): BP soft 92/55, bolus IVF x1. Monitor for improvement. Monitor BP closely. - Home meds: Lisinopril. Nebivolol. DM2 (diabetes mellitus, type 2): Lantus and qAC insulin adjusted. Cnt to monitor. BS running 250-300s, to be expected given recent steroid doses. - HemA1c 9.4. - Cnt monitor BS - Diabetic diet - Hypoglycemic protocol in place Obesity: BMI 36.6. Discussed lifestyle changes and dietary recommendations with patient. Understanding and agreeable. - Time Time Spent with patient: 25-34 minutes Medications reviewed and adjusted accordingly: Yes Anticipated Discharge Disposition: Home, Self Care Anticipated Discharge Timeframe: within 48 hours
[2020-03-12] MEDS: WARFARIN SODIUM 5 MG TABLET PO SCH (21:32)
[2020-03-12] MEDS: MELATONIN 5 MG TABLET PO SCH (21:32)
[2020-03-12] MEDS: ATORVASTATIN CALCIUM 80 MG TABLET PO SCH (21:33)
[2020-03-12] MEDS ORDERED: INSULIN GLARGINE,HUM.REC.ANLOG 1,000 UNIT/10 ML VIAL SUBCUT SCH ×2 (22:00)
[2020-03-13] MEDS: IPRATROPIUM/ALBUTEROL 0.5-2.5 MG/3 ML AMPUL NEB SCH ×4 (00:10→23:55)
[2020-03-13 06:00] LABS: ABSOLUTE LYMPHOCYTES (AUTO) 0.7 10^3/uL (0.5-4.7); ABSOLUTE MONOCYTES (AUTO) 0.3 10^3/uL (0.1-1.4); ABSOLUTE NEUT (AUTO) 5.7 10^3/uL (1.7-8.2); HEMATOCRIT 39.7 % (37.9-51.0); LYMPHOCYTES % (AUTO) 10.2 % (13-45); MEAN CORPUSCULAR HEMOGLOBIN 28.6 pg (27.0-33.4); MEAN CORPUSCULAR HGB CONC 32.7 g/dL (32.0-36.0); MEAN CORPUSCULAR VOLUME 87 fl (80-97); PLATELET COUNT 183 10^3/uL (150-450); RED BLOOD COUNT 4.55 10^6/uL (4.35-5.55); SEGMENTED NEUTROPHILS % (AUTO) 84.8 % (42-78); TOTAL CELLS COUNTED % (AUTO) 100 %; WHITE BLOOD COUNT 6.7 10^3/uL (4.0-10.5)
[2020-03-13 06:12] LABS: INTERNATIONAL RATION (INR) 2.18; PROTHROMBIN TIME 24.3 SEC (11.4-15.4)
[2020-03-13 06:14] LABS: D-DIMER 0.29 ug/mL (0.00-0.50)
[2020-03-13 06:36] LABS: ALBUMIN 3.4 g/dL (3.5-5.0); ALKALINE PHOSPHATASE 110 U/L (38-126); ANION GAP 7 (5-19); ASPARTATE AMINO TRANSFERASE 33 U/L (17-59); BILIRUBIN,DIRECT 0.3 mg/dL (0.0-0.4); BILIRUBIN,TOTAL 0.6 mg/dL (0.2-1.3); BLOOD UREA NITROGEN 19 mg/dL (7-20); C-REACTIVE PROTEIN 12.1 mg/L (<10.0); CALCIUM 8.6 mg/dL (8.4-10.2); CARBON DIOXIDE 29 mmol/L (22-30); CHLORIDE 101 mmol/L (98-107); CREATINE KINASE 49 U/L (55-170); GLUCOSE 312 mg/dL (75-110); POTASSIUM 4.6 mmol/L (3.6-5.0); TOTAL PROTEIN 6.2 g/dL (6.3-8.2)
[2020-03-13 06:36] LABS: APPEARANCE,URINE CLEAR; BILIRUBIN,URINE NEGATIVE (NEGATIVE); COLOR,URINE YELLOW; GLUCOSE, URINE >=500 mg/dL (NEGATIVE); KETONES,URINE NEGATIVE (NEGATIVE); LEUKOCYTE ESTERASE,URINE NEGATIVE (NEGATIVE); NITRITE,URINE NEGATIVE (NEGATIVE); PROTEIN,URINE NEGATIVE (NEGATIVE); URINE SPECIFIC GRAVITY 1.022; UROBILINOGEN,URINE NEGATIVE mg/dL (<2.0)
[2020-03-13 07:01] LABS: ERYTHROCYTE SEDIMENTATION RATE 22 mm/hr (0-20)
[2020-03-13] MEDS: INSULIN LISPRO 100 UNIT/ML 3 ML VIAL SUBCUT SCH ×6 (08:01→17:03)
[2020-03-13] MEDS: ASPIRIN 81 MG TABLET, CHEWABLE PO SCH (09:31)
[2020-03-13] MEDS: ZINC SULFATE 220 MG CAPSULE PO SCH (09:31)
[2020-03-13] MEDS: ASCORBIC ACID 500 MG TABLET PO SCH ×2 (09:31→17:03)
[2020-03-13] MEDS: LISINOPRIL 10 MG TABLET PO SCH (09:31)
[2020-03-13] MEDS: FUROSEMIDE 20 MG TABLET PO SCH (09:31)
[2020-03-13] MEDS: NEBIVOLOL HCL 10 MG TABLET PO SCH (09:32)
[2020-03-13] MEDS: CHOLECALCIFEROL (D3) 1,000 UNIT (25 MCG) TABLET PO SCH (09:32)
[2020-03-13] MEDS: METHYLPREDNISOLONE INJ 40 MG/1 ML SDV IV SCH ×2 (09:32→22:14)
--- NOTE | 2020-03-13 13:56 | PDOC PROGRESS REPORT ---
Subjective Date:: 03/13/20 Subjective:: 69-year-old male diagnosed with Covid on 03/03. Admitted on 03/10 regarding shortness of breath, cough, fever, body aches. Hypoxic on admission. Currently on MATH+ treatment protocol. Day 3: Patient seen on morning rounds. Pt resting upright in bedside chair eating. O2 sat >92% 3L Oxymizer, with plans to transition to nasal cannula today. Reports overall significant improvement in symptoms. Shortness of breath and cough have essentially resolved. Reports compliance with flutter valve and incentive spirometer. Denies fever, chills, chest pain, palpitations, edema, dizziness, abd pain, NVD. Discussed with nursing. BS remained elevated, will adjust insulin. No further concerns or complaints at this time. Reason For Visit: COVID-19 PNEUMONIA, ACUTE HYPOXIC RESPIRATORY Physical Exam Vital Signs: Temp Pulse Resp BP Pulse Ox 97.8 F 73 15 140/84 H 98 03/13/20 03:30 03/13/20 03:30 03/13/20 04:12 03/13/20 03:30 03/13/20 04:12 Intake & Output 03/12/20 03/13/20 03/14/20 06:59 06:59 06:59 Intake Total 2186 2550 Output Total 1620 2275 Balance 566 275 Weight 113.6 kg 112.7 kg General appearance: PRESENT: no acute distress, cooperative, obese Head exam: PRESENT: atraumatic, normocephalic Eye exam: PRESENT: EOMI Mouth exam: PRESENT: moist Neck exam: PRESENT: full ROM. ABSENT: JVD, lymphadenopathy Respiratory exam: PRESENT: clear to auscultation daquan, unlabored. ABSENT: tachypnea Cardiovascular exam: PRESENT: RRR GI/Abdominal exam: PRESENT: soft, other - Protuberant. ABSENT: tenderness Extremities exam: PRESENT: full ROM. ABSENT: pedal edema Musculoskeletal exam: PRESENT: ambulatory Neurological exam: PRESENT: alert, awake, oriented to person, oriented to place, oriented to time, oriented to situation, CN II-XII grossly intact. ABSENT: altered, motor sensory deficit Psychiatric exam: PRESENT: appropriate affect, normal mood Skin exam: PRESENT: dry, intact, other - Bilateral LE skin is very dry and scailing. Results Laboratory Results: 03/13/20 05:40 03/13/20 05:40 03/13/20 03/13/20 03/13/20 05:40 05:40 06:29 WBC 6.7 RBC 4.55 Hgb 13.0 L Hct 39.7 MCV 87 MCH 28.6 MCHC 32.7 RDW 15.0 H Plt Count 183 Seg Neutrophils % 84.8 H Sodium 136.8 L Potassium 4.6 Chloride 101 Carbon Dioxide 29 Anion Gap 7 BUN 19 Creatinine 0.65 Est GFR ( Amer) > 60 Glucose 312 H Calcium 8.6 Ferritin 367.00 Total Bilirubin 0.6 AST 33 Alkaline Phosphatase 110 C-Reactive Protein 12.1 H Total Protein 6.2 L Albumin 3.4 L Urine Color YELLOW Urine Appearance CLEAR Urine pH 7.0 Ur Specific Coward 1.022 Urine Protein NEGATIVE Urine Glucose (UA) >=500 H Urine Ketones NEGATIVE Urine Blood NEGATIVE Urine Nitrite NEGATIVE Ur Leukocyte Esterase NEGATIVE Urine WBC (Auto) 0 Urine RBC (Auto) 0 03/09/20 03/09/20 03/10/20 21:54 21:54 05:49 Creatine Kinase 49 L 58 Troponin I < 0.012 03/10/20 03/11/20 03/12/20 05:49 04:32 04:37 Creatine Kinase 93 89 Troponin I < 0.012 03/13/20 05:40 Creatine Kinase 49 L Troponin I Impressions: Chest X-Ray 03/09/20 21:37 IMPRESSION: Enlargement the cardiac silhouette with pacemaker in place. Overall the appearance is stable. Assessment and Plan - Diagnosis (1) Acute hypoxemic respiratory failure Is this a current diagnosis for this admission?: Yes (2) Pneumonia due to COVID-19 virus Is this a current diagnosis for this admission?: Yes (3) ULYSSES (obstructive sleep apnea) Is this a current diagnosis for this admission?: Yes (4) Atrial fibrillation Qualifiers: Atrial fibrillation type: unspecified Qualified Code(s): I48.91 - Unspecified atrial fibrillation Is this a current diagnosis for this admission?: Yes (5) FDC current use of anticoagulant therapy Is this a current diagnosis for this admission?: Yes (6) COPD (chronic obstructive pulmonary disease) Qualifiers: COPD type: unspecified COPD Qualified Code(s): J44.9 - Chronic obstructive pulmonary disease, unspecified Is this a current diagnosis for this admission?: Yes (7) HTN (hypertension) Qualifiers: Hypertension type: essential hypertension Qualified Code(s): I10 - Essential (primary) hypertension Is this a current diagnosis for this admission?: Yes (8) DM2 (diabetes mellitus, type 2) Qualifiers: Diabetes mellitus terminal supervisor insulin use: without correction use Diabetes mellitus complication status: without complication Qualified Code(s): E11.9 - Type 2 diabetes mellitus without complications Is this a current diagnosis for this admission?: Yes (9) History of CVA (cerebrovascular accident) Is this a current diagnosis for this admission?: Yes (10) Obesity (BMI 30-39.9) Is this a current diagnosis for this admission?: Yes - Plan Summary Summary: Plan: Significant improvement over course thus far. Will likely be able to dc home within 24-48 hours. Acute hypoxemic respiratory failure / Pneumonia due to COVID-19 virus: Have weaned down to 3L on Oxymizer and has been able to maintain O2 sat greater than 95%. Plan to wean to NC today if tolerated by patient. - CXR 03/09 bilateral increased interstitial markings. - CT of the chest was not clinically indicated; cnt monitor, re-evaluate for need. - BC NGTD. - Sputum Cx pending; not yet obtained, pt producing very minimal sputum. - Cnt monitor inflammatory markers (ESR, CRP, D-dimer, Ferritin, LDH) - Completed Ivermectin x2. - Day 3/ solu-medrol 20mg BID x7 days with plan to switch to oral prednisone, taper over 6 days. - Cnt vitamin supplements: zinc, ascorbic acid, vitamin d, melatonin. - Cnt Famotidine. - Cnt Robitussin as needed. - Cnt warfarin - Cnt breathing treatments, flutter valve, incentive spirometry, early ambulation. Long-term anticoagulation / AFIB / Hx CVA: INR appropriate at this time, cnt monitor daily. - Hx Afib, telemetry shows atrailly paced rhythm - Hx 3 strokes, residual left sided weakness though minimal ULYSSES (obstructive sleep apnea): Continue nighttime CPAP. COPD (chronic obstructive pulmonary disease): No sign of any COPD exacerbation. No wheezing. - Bronchodilators only as needed. - The patient is not on any chronic inhaler. HTN (hypertension): BP initially soft, improved with fluids. Cnt home meds. - Home meds: Lisinopril. Carvedilol, amlodipine DM2 (diabetes mellitus, type 2): Lantus and qAC insulin adjusted. Cnt to monitor. BS running 250-300s. - Home meds: Yobany Colin - HemA1c 9.4. - Cnt monitor BS - Diabetic diet - Hypoglycemic protocol in place Obesity: BMI 36.6. Discussed lifestyle changes and dietary recommendations with patient. Understanding and agreeable. - Time Time Spent with patient: 25-34 minutes Medications reviewed and adjusted accordingly: Yes Anticipated Discharge Disposition: Home, Self Care Anticipated Discharge Timeframe: within 48 hours - 24-48
--- NOTE | 2020-03-13 18:42 | CDI QUERY ---
<KAR LAURA - Last Filed: 03/13/20 18:42> CDI Query CDI Review: We are seeking further clarification of documentation to reflect the severity of illness of your patient. 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 SHAN Trejo RN Clinical Organic Extractions Technician Physician Advisor <MARCO ROBB - Last Filed: 03/13/20 19:25> CDI Query CDI Review: Longstanding persistent atrial fibrillation Agree with Query: Yes
[2020-03-13] MEDS ORDERED: INSULIN GLARGINE,HUM.REC.ANLOG 1,000 UNIT/10 ML VIAL SUBCUT SCH (22:00)
[2020-03-13] MEDS ORDERED: WARFARIN SODIUM 5 MG TABLET PO SCH (22:00)
[2020-03-13] MEDS: MELATONIN 5 MG TABLET PO SCH (22:13)
[2020-03-13] MEDS: ATORVASTATIN CALCIUM 80 MG TABLET PO SCH (22:13)
[2020-03-14 05:08] LABS: ABSOLUTE LYMPHOCYTES (AUTO) 0.7 10^3/uL (0.5-4.7); ABSOLUTE MONOCYTES (AUTO) 0.4 10^3/uL (0.1-1.4); ABSOLUTE NEUT (AUTO) 5.7 10^3/uL (1.7-8.2); BASOPHILS % (AUTO) 0.1 % (0-2); HEMATOCRIT 41.1 % (37.9-51.0); HEMOGLOBIN 13.5 g/dL (13.5-17.0); LYMPHOCYTES % (AUTO) 10.7 % (13-45); MEAN CORPUSCULAR HEMOGLOBIN 28.8 pg (27.0-33.4); MEAN CORPUSCULAR HGB CONC 32.9 g/dL (32.0-36.0); MEAN CORPUSCULAR VOLUME 87 fl (80-97); MONOCYTES % (AUTO) 6.5 % (3-13); PLATELET COUNT 237 10^3/uL (150-450); RED CELL DISTRIBUTION WIDTH 15.1 % (11.5-14.0); SEGMENTED NEUTROPHILS % (AUTO) 82.7 % (42-78); TOTAL CELLS COUNTED % (AUTO) 100 %; WHITE BLOOD COUNT 6.9 10^3/uL (4.0-10.5)
[2020-03-14 05:14] LABS: INTERNATIONAL RATION (INR) 2.75
[2020-03-14 05:25] LABS: ALBUMIN 3.6 g/dL (3.5-5.0); ALKALINE PHOSPHATASE 117 U/L (38-126); ANION GAP 5 (5-19); ASPARTATE AMINO TRANSFERASE 30 U/L (17-59); BILIRUBIN,DIRECT 0.2 mg/dL (0.0-0.4); BILIRUBIN,TOTAL 0.5 mg/dL (0.2-1.3); BLOOD UREA NITROGEN 24 mg/dL (7-20); CARBON DIOXIDE 32 mmol/L (22-30); CHLORIDE 99 mmol/L (98-107); CREATINE KINASE 43 U/L (55-170); GLUCOSE 310 mg/dL (75-110); POTASSIUM 4.9 mmol/L (3.6-5.0); TOTAL PROTEIN 6.5 g/dL (6.3-8.2)
[2020-03-14] MEDS: IPRATROPIUM/ALBUTEROL 0.5-2.5 MG/3 ML AMPUL NEB SCH ×3 (07:38→23:38)
[2020-03-14] MEDS: INSULIN LISPRO 100 UNIT/ML 3 ML VIAL SUBCUT SCH ×6 (08:40→17:42)
[2020-03-14] MEDS: NEBIVOLOL HCL 10 MG TABLET PO SCH (09:01)
[2020-03-14] MEDS: CHOLECALCIFEROL (D3) 1,000 UNIT (25 MCG) TABLET PO SCH (09:01)
[2020-03-14] MEDS: ASCORBIC ACID 500 MG TABLET PO SCH ×2 (09:01→17:39)
[2020-03-14] MEDS: ZINC SULFATE 220 MG CAPSULE PO SCH (09:02)
[2020-03-14] MEDS: LISINOPRIL 10 MG TABLET PO SCH (09:02)
[2020-03-14] MEDS: FUROSEMIDE 20 MG TABLET PO SCH (09:02)
[2020-03-14] MEDS: ASPIRIN 81 MG TABLET, CHEWABLE PO SCH (09:02)
[2020-03-14] MEDS: METHYLPREDNISOLONE INJ 40 MG/1 ML SDV IV SCH ×2 (09:05→22:42)
--- NOTE | 2020-03-14 16:27 | PDOC PROGRESS REPORT ---
Subjective Date:: 03/14/20 Subjective:: NAEO. Has been weaned down to 2.5 L O2. Glucose remains uncontrolled. Reason For Visit: COVID-19 PNEUMONIA, ACUTE HYPOXIC RESPIRATORY Physical Exam Vital Signs: Temp Pulse Resp BP Pulse Ox 97.4 F 73 20 149/87 H 92 03/14/20 11:46 03/14/20 11:46 03/14/20 11:46 03/14/20 11:46 03/14/20 11:46 Intake & Output 03/13/20 03/14/20 03/15/20 06:59 06:59 06:59 Intake Total 2550 722 1055 Output Total 2275 600 Balance 142 957 7394 Weight 112.7 kg 111.6 kg General appearance: PRESENT: no acute distress, cooperative, obese Head exam: PRESENT: atraumatic Eye exam: ABSENT: scleral icterus Mouth exam: PRESENT: moist Throat exam: ABSENT: post pharyngeal erythema Neck exam: ABSENT: JVD Respiratory exam: PRESENT: unlabored. ABSENT: crackles, tachypnea, wheezes Cardiovascular exam: PRESENT: RRR GI/Abdominal exam: PRESENT: normal bowel sounds, soft. ABSENT: tenderness Extremities exam: ABSENT: pedal edema Musculoskeletal exam: PRESENT: ambulatory Neurological exam: PRESENT: alert, awake, oriented to person, oriented to place, oriented to time, oriented to situation Psychiatric exam: PRESENT: appropriate affect Skin exam: ABSENT: jaundice Results Laboratory Results: 03/14/20 04:09 03/14/20 04:09 03/14/20 03/14/20 04:09 04:09 WBC 6.9 RBC 4.70 Hgb 13.5 Hct 41.1 MCV 87 MCH 28.8 MCHC 32.9 RDW 15.1 H Plt Count 237 Seg Neutrophils % 82.7 H Sodium 136.0 L Potassium 4.9 Chloride 99 Carbon Dioxide 32 H Anion Gap 5 BUN 24 H Creatinine 0.79 Est GFR ( Amer) > 60 Glucose 310 H Calcium 9.0 Total Bilirubin 0.5 AST 30 Alkaline Phosphatase 117 Total Protein 6.5 Albumin 3.6 03/09/20 03/09/20 03/10/20 21:54 21:54 05:49 Creatine Kinase 49 L 58 Troponin I < 0.012 03/10/20 03/11/20 03/12/20 05:49 04:32 04:37 Creatine Kinase 93 89 Troponin I < 0.012 03/13/20 03/14/20 05:40 04:09 Creatine Kinase 49 L 43 L Troponin I Impressions: Chest X-Ray 03/09/20 21:37 IMPRESSION: Enlargement the cardiac silhouette with pacemaker in place. Overall the appearance is stable. 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 Is this a current diagnosis for this admission?: Yes (6) COPD (chronic obstructive pulmonary disease) Qualifiers: COPD type: unspecified COPD Qualified Code(s): J44.9 - Chronic obstructive pulmonary disease, unspecified Is this a current diagnosis for this admission?: Yes (7) DM2 (diabetes mellitus, type 2) Qualifiers: Diabetes mellitus care home insulin use: without long term care administrator use Diabetes mellitus complication status: without complication Qualified Code(s): E11.9 - Type 2 diabetes mellitus without complications Is this a current diagnosis for this admission?: Yes (8) HLD (hyperlipidemia) Qualifiers: Hyperlipidemia type: unspecified Qualified Code(s): E78.5 - Hyperlipidemia, unspecified Is this a current diagnosis for this admission?: Yes (9) HTN (hypertension) Qualifiers: Hypertension type: essential hypertension Qualified Code(s): I10 - Essential (primary) hypertension Is this a current diagnosis for this admission?: Yes (10) ULYSSES (obstructive sleep apnea) Is this a current diagnosis for this admission?: Yes (11) sick sinus syndrome s/p pacemaker Is this a current diagnosis for this admission?: Yes - Plan Summary Summary: Acute hypoxemic respiratory failure - weaned down to 2.5 L O2 and has been able to maintain O2 sat greater than 88%, continue to wean as tolerated Pneumonia due to COVID-19 virus - CXR 03/09 bilateral increased interstitial markings - trend inflammatory markers (ESR, CRP, D-dimer, Ferritin, LDH) - Completed Ivermectin x2. - Day 05/24 solu-medrol 20mg BID x7 days - Cnt vitamin supplements: zinc, ascorbic acid, vitamin d, melatonin - Cnt Famotidine. - Cnt Robitussin as needed. - Cnt breathing treatments, flutter valve, incentive spirometry, early ambulation. SSS s/p PM, on long-term anticoagulation: INR goal 2-3 - Hx 3 strokes, residual left sided weakness minimal ULYSSES (obstructive sleep apnea): Continue nighttime CPAP. COPD (chronic obstructive pulmonary disease): No sign of exacerbation. No wheezing. - Bronchodilators as needed. - The patient is not on chronic inhaler. HTN (hypertension) - cont home meds: Lisinopril. Carvedilol, amlodipine DM2 (diabetes mellitus, type 2): Lantus and qAC insulin adjusted again today. BG uncontrolled in the s/o steroid use. Cnt to monitor. - Home meds: Yobany Colin - HemA1c 9.4. - Cnt monitor BS - Diabetic diet - Hypoglycemic protocol in place Obesity: BMI 36 - Discussed lifestyle changes and dietary recommendations - Time Time Spent with patient: 35 or more minutes Anticipated Discharge Disposition: Home, Self Care Anticipated Discharge Timeframe: within 48 hours
[2020-03-14] MEDS ORDERED: WARFARIN SODIUM 4 MG TABLET PO SCH (22:00)
[2020-03-14] MEDS: ATORVASTATIN CALCIUM 80 MG TABLET PO SCH (22:42)
[2020-03-14] MEDS: MELATONIN 5 MG TABLET PO SCH (22:42)
[2020-03-14] MEDS: INSULIN GLARGINE,HUM.REC.ANLOG 1,000 UNIT/10 ML VIAL SUBCUT SCH (22:43)
[2020-03-15 05:16] LABS: ABSOLUTE LYMPHOCYTES (AUTO) 0.8 10^3/uL (0.5-4.7); ABSOLUTE MONOCYTES (AUTO) 0.5 10^3/uL (0.1-1.4); ABSOLUTE NEUT (AUTO) 6.7 10^3/uL (1.7-8.2); BASOPHILS % (AUTO) 0.1 % (0-2); HEMATOCRIT 40.7 % (37.9-51.0); HEMOGLOBIN 13.6 g/dL (13.5-17.0); LYMPHOCYTES % (AUTO) 9.5 % (13-45); MEAN CORPUSCULAR HEMOGLOBIN 28.8 pg (27.0-33.4); MEAN CORPUSCULAR HGB CONC 33.3 g/dL (32.0-36.0); MEAN CORPUSCULAR VOLUME 87 fl (80-97); MONOCYTES % (AUTO) 6.5 % (3-13); PLATELET COUNT 239 10^3/uL (150-450); RED BLOOD COUNT 4.71 10^6/uL (4.35-5.55); RED CELL DISTRIBUTION WIDTH 14.9 % (11.5-14.0); SEGMENTED NEUTROPHILS % (AUTO) 83.9 % (42-78); TOTAL CELLS COUNTED % (AUTO) 100 %
[2020-03-15 05:19] LABS: INTERNATIONAL RATION (INR) 3.17; PROTHROMBIN TIME 32.3 SEC (11.4-15.4)
[2020-03-15 05:46] LABS: ALBUMIN 3.4 g/dL (3.5-5.0); ALKALINE PHOSPHATASE 108 U/L (38-126); ANION GAP 7 (5-19); ASPARTATE AMINO TRANSFERASE 31 U/L (17-59); BILIRUBIN,DIRECT 0.1 mg/dL (0.0-0.4); BILIRUBIN,TOTAL 0.5 mg/dL (0.2-1.3); BLOOD UREA NITROGEN 24 mg/dL (7-20); CALCIUM 8.7 mg/dL (8.4-10.2); CARBON DIOXIDE 30 mmol/L (22-30); CHLORIDE 99 mmol/L (98-107); CREATINE KINASE 33 U/L (55-170); GLUCOSE 278 mg/dL (75-110); POTASSIUM 4.7 mmol/L (3.6-5.0); TOTAL PROTEIN 6.3 g/dL (6.3-8.2)
[2020-03-15] MEDS: IPRATROPIUM/ALBUTEROL 0.5-2.5 MG/3 ML AMPUL NEB SCH ×3 (08:11→23:36)
[2020-03-15] MEDS: INSULIN LISPRO 100 UNIT/ML 3 ML VIAL SUBCUT SCH ×6 (09:04→17:44)
[2020-03-15] MEDS: METHYLPREDNISOLONE INJ 40 MG/1 ML SDV IV SCH ×2 (09:05→22:03)
[2020-03-15] MEDS: ZINC SULFATE 220 MG CAPSULE PO SCH (09:06)
[2020-03-15] MEDS: ASCORBIC ACID 500 MG TABLET PO SCH ×2 (09:06→17:44)
[2020-03-15] MEDS: CHOLECALCIFEROL (D3) 1,000 UNIT (25 MCG) TABLET PO SCH (09:06)
[2020-03-15] MEDS: FUROSEMIDE 20 MG TABLET PO SCH (09:06)
[2020-03-15] MEDS: LISINOPRIL 10 MG TABLET PO SCH (09:07)
[2020-03-15] MEDS: ASPIRIN 81 MG TABLET, CHEWABLE PO SCH (09:07)
[2020-03-15] MEDS: NEBIVOLOL HCL 10 MG TABLET PO SCH (09:32)
--- NOTE | 2020-03-15 14:26 | PDOC PROGRESS REPORT ---
Subjective Date:: 03/15/20 Subjective:: NAEO. Continuing to wean down O2 as tolerated. Reason For Visit: COVID-19 PNEUMONIA, ACUTE HYPOXIC RESPIRATORY Physical Exam Vital Signs: Temp Pulse Resp BP Pulse Ox 97.3 F 72 18 140/79 H 98 03/15/20 08:23 03/15/20 08:23 03/15/20 08:23 03/15/20 08:23 03/15/20 08:23 Intake & Output 03/14/20 03/15/20 03/16/20 06:59 06:59 06:59 Intake Total 722 1630 Output Total 600 Balance 122 1630 Weight 111.6 kg 111.5 kg General appearance: PRESENT: no acute distress, cooperative Eye exam: ABSENT: scleral icterus Mouth exam: PRESENT: moist Throat exam: ABSENT: post pharyngeal erythema Neck exam: ABSENT: JVD Respiratory exam: PRESENT: unlabored. ABSENT: crackles, retraction, tachypnea, wheezes Cardiovascular exam: PRESENT: RRR GI/Abdominal exam: PRESENT: normal bowel sounds, soft. ABSENT: tenderness Extremities exam: ABSENT: pedal edema Musculoskeletal exam: PRESENT: ambulatory Neurological exam: PRESENT: alert, awake Psychiatric exam: PRESENT: appropriate affect Skin exam: ABSENT: jaundice Results Laboratory Results: 03/15/20 04:22 03/15/20 04:22 03/15/20 03/15/20 04:22 04:22 WBC 8.0 RBC 4.71 Hgb 13.6 Hct 40.7 MCV 87 MCH 28.8 MCHC 33.3 RDW 14.9 H Plt Count 239 Seg Neutrophils % 83.9 H Sodium 136.1 L Potassium 4.7 Chloride 99 Carbon Dioxide 30 Anion Gap 7 BUN 24 H Creatinine 0.71 Est GFR ( Amer) > 60 Glucose 278 H Calcium 8.7 Total Bilirubin 0.5 AST 31 Alkaline Phosphatase 108 Total Protein 6.3 Albumin 3.4 L 03/09/20 23:19 Blood Blood Culture - Final NO GROWTH IN 5 DAYS 03/09/20 21:54 Blood Blood Culture - Final NO GROWTH IN 5 DAYS 03/09/20 03/09/20 03/10/20 21:54 21:54 05:49 Creatine Kinase 49 L 58 Troponin I < 0.012 03/10/20 03/11/20 03/12/20 05:49 04:32 04:37 Creatine Kinase 93 89 Troponin I < 0.012 03/13/20 03/14/20 03/15/20 05:40 04:09 04:22 Creatine Kinase 49 L 43 L 33 L Troponin I Impressions: Chest X-Ray 03/09/20 21:37 IMPRESSION: Enlargement the cardiac silhouette with pacemaker in place. Overall the appearance is stable. 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 Is this a current diagnosis for this admission?: Yes (6) COPD (chronic obstructive pulmonary disease) Qualifiers: COPD type: unspecified COPD Qualified Code(s): J44.9 - Chronic obstructive pulmonary disease, unspecified Is this a current diagnosis for this admission?: Yes (7) DM2 (diabetes mellitus, type 2) Qualifiers: Diabetes mellitus fci insulin use: without bulk station operator use Diabetes mellitus complication status: without complication Qualified Code(s): E11.9 - Type 2 diabetes mellitus without complications Is this a current diagnosis for this admission?: Yes (8) HLD (hyperlipidemia) Qualifiers: Hyperlipidemia type: unspecified Qualified Code(s): E78.5 - Hyperlipidemia, unspecified Is this a current diagnosis for this admission?: Yes (9) HTN (hypertension) Qualifiers: Hypertension type: essential hypertension Qualified Code(s): I10 - Essential (primary) hypertension Is this a current diagnosis for this admission?: Yes (10) ULYSSES (obstructive sleep apnea) Is this a current diagnosis for this admission?: Yes (11) sick sinus syndrome s/p pacemaker Is this a current diagnosis for this admission?: Yes - Plan Summary Summary: Acute hypoxemic respiratory failure - weaned down to 2 L O2 and has been able to maintain O2 sat greater than 88%, continue to wean as tolerated Pneumonia due to COVID-19 virus - CXR 03/09 bilateral increased interstitial markings - trend inflammatory markers (ESR, CRP, D-dimer, Ferritin, LDH) - Completed Ivermectin therapy - Day 06/23 solu-medrol - Cnt vitamin supplements: zinc, ascorbic acid, vitamin d, melatonin - Cnt Famotidine. - Cnt Robitussin as needed. - Cnt breathing treatments, flutter valve, incentive spirometry, early ambulation. Sick Sinus Syndrome s/p PM, on long-term anticoagulation: INR goal 2-3 - Hx 3 strokes, residual left sided weakness (minimal) ULYSSES (obstructive sleep apnea): Continue nighttime CPAP. COPD (chronic obstructive pulmonary disease): No sign of exacerbation. No wheezing. Bronchodilators as needed. - The patient is not on chronic inhaler. HTN (hypertension) - cont home meds: Lisinopril. Carvedilol, amlodipine DM2 (diabetes mellitus, type 2): Lantus and qAC insulin adjusted again today. BG uncontrolled but improving, in the s/o steroid use. Cnt to monitor. - Home meds: Yobany Colin - HemA1c 9.4. - Cnt monitor BS - Diabetic diet - Hypoglycemic protocol in place Obesity: BMI 36 - Discussed lifestyle changes and dietary recommendations - Time Time Spent with patient: 35 or more minutes Anticipated Discharge Disposition: Home, Self Care Anticipated Discharge Timeframe: within 48 hours
[2020-03-15 15:26] LABS: APPEARANCE,URINE SLIGHTLY-CLOUDY; BILIRUBIN,URINE NEGATIVE (NEGATIVE); COLOR,URINE YELLOW; GLUCOSE, URINE >=500 mg/dL (NEGATIVE); KETONES,URINE NEGATIVE (NEGATIVE); LEUKOCYTE ESTERASE,URINE NEGATIVE (NEGATIVE); NITRITE,URINE NEGATIVE (NEGATIVE); PROTEIN,URINE NEGATIVE (NEGATIVE); URINE SPECIFIC GRAVITY 1.012
[2020-03-15] MEDS: MELATONIN 5 MG TABLET PO SCH (22:03)
[2020-03-15] MEDS: ATORVASTATIN CALCIUM 80 MG TABLET PO SCH (22:03)
[2020-03-15] MEDS: INSULIN GLARGINE,HUM.REC.ANLOG 1,000 UNIT/10 ML VIAL SUBCUT SCH (22:04)
[2020-03-16 05:07] LABS: ABSOLUTE MONOCYTES (AUTO) 0.6 10^3/uL (0.1-1.4); BASOPHILS % (AUTO) 0.3 % (0-2); LYMPHOCYTES % (AUTO) 11.5 % (13-45); MEAN CORPUSCULAR HEMOGLOBIN 28.3 pg (27.0-33.4); MEAN CORPUSCULAR HGB CONC 32.5 g/dL (32.0-36.0); MEAN CORPUSCULAR VOLUME 87 fl (80-97); MONOCYTES % (AUTO) 6.7 % (3-13); PLATELET COUNT 273 10^3/uL (150-450); RED BLOOD COUNT 4.94 10^6/uL (4.35-5.55); RED CELL DISTRIBUTION WIDTH 14.7 % (11.5-14.0); SEGMENTED NEUTROPHILS % (AUTO) 81.5 % (42-78); TOTAL CELLS COUNTED % (AUTO) 100 %; WHITE BLOOD COUNT 8.6 10^3/uL (4.0-10.5)
[2020-03-16 05:27] LABS: INTERNATIONAL RATION (INR) 3.28; PROTHROMBIN TIME 33.2 SEC (11.4-15.4)
[2020-03-16 05:34] LABS: ALBUMIN 3.5 g/dL (3.5-5.0); ALKALINE PHOSPHATASE 96 U/L (38-126); ANION GAP 9 (5-19); ASPARTATE AMINO TRANSFERASE 43 U/L (17-59); BILIRUBIN,DIRECT 0.2 mg/dL (0.0-0.4); BILIRUBIN,TOTAL 0.6 mg/dL (0.2-1.3); BLOOD UREA NITROGEN 21 mg/dL (7-20); CALCIUM 8.7 mg/dL (8.4-10.2); CARBON DIOXIDE 29 mmol/L (22-30); CHLORIDE 98 mmol/L (98-107); CREATINE KINASE 39 U/L (55-170); GLUCOSE 263 mg/dL (75-110); POTASSIUM 4.7 mmol/L (3.6-5.0); TOTAL PROTEIN 6.3 g/dL (6.3-8.2)
[2020-03-16] MEDS: IPRATROPIUM/ALBUTEROL 0.5-2.5 MG/3 ML AMPUL NEB SCH (08:03)
[2020-03-16] MEDS: INSULIN LISPRO 100 UNIT/ML 3 ML VIAL SUBCUT SCH ×4 (08:51→12:28)
[2020-03-16] MEDS: NEBIVOLOL HCL 10 MG TABLET PO SCH (09:53)
[2020-03-16] MEDS: CHOLECALCIFEROL (D3) 1,000 UNIT (25 MCG) TABLET PO SCH (09:53)
[2020-03-16] MEDS: LISINOPRIL 10 MG TABLET PO SCH (09:53)
[2020-03-16] MEDS: ASPIRIN 81 MG TABLET, CHEWABLE PO SCH (09:54)
[2020-03-16] MEDS: METHYLPREDNISOLONE INJ 40 MG/1 ML SDV IV SCH (09:54)
[2020-03-16] MEDS: ZINC SULFATE 220 MG CAPSULE PO SCH (09:54)
[2020-03-16] MEDS: FUROSEMIDE 20 MG TABLET PO SCH (09:54)
[2020-03-16] MEDS: ASCORBIC ACID 500 MG TABLET PO SCH (09:54)
[2020-03-16 14:06] VITALS: BP 121/54
--- NOTE | 2020-03-16 14:06 | PDOC DISCHARGE SUMMARY ---
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 Is this a current diagnosis for this admission?: Yes (6) COPD (chronic obstructive pulmonary disease) Is this a current diagnosis for this admission?: Yes (7) DM2 (diabetes mellitus, type 2) Is this a current diagnosis for this admission?: Yes (8) HLD (hyperlipidemia) Is this a current diagnosis for this admission?: Yes (9) HTN (hypertension) Is this a current diagnosis for this admission?: Yes (10) ULYSSES (obstructive sleep apnea) Is this a current diagnosis for this admission?: Yes (11) sick sinus syndrome s/p pacemaker Is this a current diagnosis for this admission?: Yes - Assessment Summary: Pneumonia due to COVID-19 virus: treated with antibiotics, steroids, ivermectin, vitamin supplements (zinc, ascorbic acid, vitamin d, melatonin) with excellent improvement. Acute hypoxemic respiratory failure: resolved with above treatment. Saturations remained above 88% on room air during ambulation on the day of discharge. Sick Sinus Syndrome s/p PM, on long-term anticoagulation: INR goal 2-3. Continued home warfarin therapy while inpatient. ULYSSES (obstructive sleep apnea): Continue nighttime CPAP. COPD (chronic obstructive pulmonary disease): No sign of acute exacerbation this hospitalization. HTN (hypertension): well controlled on home regimen. DM2 (diabetes mellitus, type 2): complicated by hyperglycemia in the s/o steroid usage. Obesity: BMI 36. Counselled on lifestyle changes, weight loss, exercise and diet. - Additional Information Resuscitation Status: Full Code Discharge Activity: Activity As Tolerated, Balance Activity w/Rest Referrals: PRECIOUS SHAH PA-C [Primary Care Provider] - 04/14/20 11:00 am Home Medications: Atorvastatin Calcium [Lipitor 80 mg Tablet] 80 mg PO QHS 01/20/17 Escitalopram Oxalate [Lexapro] 20 mg PO DAILY 01/20/17 Lisinopril [Prinivil 40 mg Tablet] 40 mg PO DAILY 01/20/17 Amlodipine Besylate [Norvasc 2.5 mg Tablet] 2.5 mg PO DAILY 03/10/20 Carvedilol [Coreg 3.125 mg Tablet] 3.125 mg PO BID 03/10/20 Dulaglutide [Trulicity] 0.75 mg SQ MICHEL 03/10/20 Furosemide [Lasix] 20 mg PO DAILY 03/10/20 Ramelteon [Rozerem] 8 mg PO DAILY 03/10/20 Sitagliptin Phosphate [Januvia 50 mg Tablet] 100 mg PO DAILY 03/10/20 Warfarin Sodium 1 mg PO DAILY 03/10/20 Warfarin Sodium [Jantoven] 4 mg PO DAILY 03/10/20 History of Present Illiness History of Present Illness: OG BRAND is a 69 year old male Physical Exam Vital Signs: Temp Pulse Resp BP Pulse Ox 97.9 F 72 18 135/74 H 90 L 03/16/20 12:27 03/16/20 12:27 03/16/20 12:27 03/16/20 12:27 03/16/20 12:27 Intake & Output 03/15/20 03/16/20 03/17/20 06:59 06:59 06:59 Intake Total 1630 2710 1380 Balance 1630 2710 1380 Weight 111.5 kg 110.7 kg Results Laboratory Results: WBC 8.6 10^3/uL (4.0-10.5) 03/16/20 04:20 RBC 4.94 10^6/uL (4.35-5.55) 03/16/20 04:20 Hgb 14.0 g/dL (13.5-17.0) 03/16/20 04:20 Hct 43.0 % (37.9-51.0) 03/16/20 04:20 MCV 87 fl (80-97) 03/16/20 04:20 MCH 28.3 pg (27.0-33.4) 03/16/20 04:20 MCHC 32.5 g/dL (32.0-36.0) 03/16/20 04:20 RDW 14.7 % (11.5-14.0) H 03/16/20 04:20 Plt Count 273 10^3/uL (150-450) 03/16/20 04:20 Lymph % (Auto) 11.5 % (13-45) L 03/16/20 04:20 [place] % (Auto) 6.7 % (3-13) 03/16/20 04:20 Eos % (Auto) 0.0 % (0-6) 03/16/20 04:20 Baso % (Auto) 0.3 % (0-2) 03/16/20 04:20 Absolute Neuts (auto) 7.0 10^3/uL (1.7-8.2) 03/16/20 04:20 Absolute Lymphs (auto) 1.0 10^3/uL (0.5-4.7) 03/16/20 04:20 Absolute Monos (auto) 0.6 10^3/uL (0.1-1.4) 03/16/20 04:20 Absolute Eos (auto) 0.0 10^3/uL (0.0-0.6) 03/16/20 04:20 Absolute Basos (auto) 0.0 10^3/uL (0.0-0.2) 03/16/20 04:20 Seg Neutrophils % 81.5 % (42-78) H 03/16/20 04:20 ESR 22 mm/hr (0-20) H 03/13/20 05:40 PT 33.2 SEC (11.4-15.4) H 03/16/20 04:20 INR 3.28 03/16/20 04:20 D-Dimer 0.29 ug/mL (0.00-0.50) 03/13/20 05:40 Sodium 135.8 mmol/L (137-145) L 03/16/20 04:20 Potassium 4.7 mmol/L (3.6-5.0) 03/16/20 04:20 Chloride 98 mmol/L (98-107) 03/16/20 04:20 Carbon Dioxide 29 mmol/L (22-30) 03/16/20 04:20 Anion Gap 9 (5-19) 03/16/20 04:20 BUN 21 mg/dL (7-20) H 03/16/20 04:20 Creatinine 0.72 mg/dL (0.52-1.25) 03/16/20 04:20 Est GFR ( Amer) > 60 (>60) 03/16/20 04:20 Est GFR (MDRD) Non-Af > 60 (>60) 03/16/20 04:20 Glucose 263 mg/dL (75-110) H 03/16/20 04:20 POC Glucose 264 mg/dL (70-110) H 03/16/20 11:51 Hemoglobin A1c % 9.4 % (4.7-6.0) H 03/10/20 05:49 Lactic Acid 2.3 mmol/L (0.7-2.1) H 03/09/20 21:54 Calcium 8.7 mg/dL (8.4-10.2) 03/16/20 04:20 Magnesium 1.7 mg/dL (1.6-2.3) 03/11/20 04:32 Ferritin 367.00 ng/mL (17.9-464.0) 03/13/20 05:40 Total Bilirubin 0.6 mg/dL (0.2-1.3) 03/16/20 04:20 Direct Bilirubin 0.2 mg/dL (0.0-0.4) 03/16/20 04:20 Neonat Total Bilirubin Not Reportable 03/16/20 04:20 Neonat Direct Bilirubin Not Reportable 03/16/20 04:20 Neonat Indirect Bili Not Reportable 03/16/20 04:20 AST 43 U/L (17-59) 03/16/20 04:20 ALT 59 U/L (<50) H 03/16/20 04:20 Alkaline Phosphatase 96 U/L (38-126) 03/16/20 04:20 Lactate Dehydrogenase 263 U/L (120-246) H 03/13/20 05:40 Creatine Kinase 39 U/L (55-170) L 03/16/20 04:20 Troponin I < 0.012 ng/mL 03/10/20 05:49 C-Reactive Protein 12.1 mg/L (<10.0) H 03/13/20 05:40 Total Protein 6.3 g/dL (6.3-8.2) 03/16/20 04:20 Albumin 3.5 g/dL (3.5-5.0) 03/16/20 04:20 Procalcitonin 0.08 ng/mL (0.00-0.08) 03/12/20 04:37 Urine Color YELLOW 03/15/20 12:53 Urine Appearance SLIGHTLY-CLOUDY 03/15/20 12:53 Urine pH 5.0 (5.0-9.0) 03/15/20 12:53 Ur Specific [place] 1.012 03/15/20 12:53 Urine Protein NEGATIVE mg/dL (NEGATIVE) 03/15/20 12:53 Urine Glucose (UA) >=500 mg/dL (NEGATIVE) H 03/15/20 12:53 Urine Ketones NEGATIVE mg/dL (NEGATIVE) 03/15/20 12:53 Urine Blood NEGATIVE (NEGATIVE) 03/15/20 12:53 Urine Nitrite NEGATIVE (NEGATIVE) 03/15/20 12:53 Urine Bilirubin NEGATIVE (NEGATIVE) 03/15/20 12:53 Urine Urobilinogen 2.0 mg/dL (<2.0) H 03/15/20 12:53 Ur Leukocyte Esterase NEGATIVE (NEGATIVE) 03/15/20 12:53 Urine WBC (Auto) 1 /HPF 03/15/20 12:53 Urine RBC (Auto) 0 /HPF 03/15/20 12:53 Squamous Epi Cells Auto <1 /HPF 03/15/20 12:53 Urine Mucus (Auto) RARE /LPF 03/15/20 12:53 Urine Ascorbic Acid 20 (NEGATIVE) H 03/15/20 12:53 03/09/20 03/10/20 21:54 05:49 Troponin I < 0.012 < 0.012 Impressions: Chest X-Ray 03/09/20 21:37 IMPRESSION: Enlargement the cardiac silhouette with pacemaker in place. Overall the appearance is stable. Stroke Is this a Stroke Patient?: No Acute Heart Failure Is this a Heart Failure Patient?: No
== END 2020-03-16 14:50 | disposition home or self-care (01) | DRG 177 ==
LOC: ER 20:36 → EH 03-10 00:23 → OBSVTOIN 03-10 01:02 → 3S 03-10 02:15 → 3N 03-10 12:12
PROVIDERS: ADMIT Internal Medicine; ATTEND Hospitalist
DX: U07.1 COVID-19 (principal); J12.82 Pneumonia due to coronavirus disease 2019; J96.21 Acute and chronic respiratory failure with hypoxia; J44.0 Chronic obstructive pulmonary disease with (acute) lower respiratory infection; I48.91 Unspecified atrial fibrillation; I50.9 Heart failure, unspecified; I11.0 Hypertensive heart disease with heart failure; I49.5 Sick sinus syndrome; Z95.0 Presence of cardiac pacemaker; E11.9 Type 2 diabetes mellitus without complications; Z90.49 Acquired absence of other specified parts of digestive tract; Z87.891 Personal history of nicotine dependence; Z82.49 Family history of ischemic heart disease and other diseases of the circulatory system; Z83.3 Family history of diabetes mellitus; Z88.6 Allergy status to analgesic agent; Z79.01 Long term (current) use of anticoagulants; G47.33 Obstructive sleep apnea (adult) (pediatric); J44.9 Chronic obstructive pulmonary disease, unspecified; Z86.73 Personal history of transient ischemic attack (TIA), and cerebral infarction without residual deficits; Z71.3 Dietary counseling and surveillance; E66.9 Obesity, unspecified; Z68.36 Body mass index [BMI] 36.0-36.9, adult; Z23 Encounter for immunization
CPT/HCPCS: 36415; 71045; 80053; 81001; 82550; 82728; 82962; 83036; 83605; 83615; 83735; 84145; 84484; 85025; 85379; 85610; 85652; 86140; 87040; 90471; 90686; 93005; 93010; 94640; 94660; 94667; 94799; 96361; 96374; 99285; G0008; J1100; J1815; J2920; J3490; J7030; J7120